=== PATIENT | female | born 1985 | race Caucasian/White ===

== ENCOUNTER 2022-05-12 12:42 | Outpatient (CLI) | payer BC, SELFPAY ==
--- NOTE | 2022-05-12 13:00 | CRLHL7_ITS ---
For Patients: As a result of the Century Cures Act, medical imaging exams and procedure reports are released immediately into your electronic medical record. You may view this report before your referring provider. If you have questions, please contact your health care provider. INDICATION: Dating and viability TECHNIQUE: Ultrasound OB pelvis transabdominal and transvaginal. Real-time plata-scale imaging of the pelvis was performed. COMPARISON: None FINDINGS: Sonographic imaging demonstrates a gestational sac measuring 1.9 centimeters with a yolk sac and no apparent pole at this time. No heart tones are identified. No significant subchorionic hemorrhage. The right ovary is normal in size, contour and echogenicity. The left ovary is not visualized. IMPRESSION: Demonstration of a gestational sac measuring 1.9 centimeters corresponding to a 6 week gestation with a yolk sac. No obvious heart tones at this time. Overall, differential includes demise versus early gestation secondary to small, early appearing gestational sac/yolk sac and underdeveloped pole. Recommend additional follow-up with repeat ultrasound in 2 weeks to document viability and/or sequential quantitative beta HCG evaluation. Dictated by Laith Macdonald MD @ 05/12/2022 2:22:30 PM (Electronically Signed)
== END 2022-05-12 12:43 | disposition home or self-care (01) ==
LOC: US 12:44
PROVIDERS: PCP Physician Assistant Medical; Visit Provider Registered Nurse
DX: Z34.91 Encounter for supervision of normal pregnancy, unspecified, first trimester (principal); O02.1 Missed abortion
CPT/HCPCS: 76817; 84443; 86850; 86900; 86901

== ENCOUNTER 2022-05-22 08:05 | Outpatient (CLI) | payer BC, SELFPAY ==
--- NOTE | 2022-05-22 08:15 | CRLHL7_ITS ---
For Patients: As a result of the Century Cures Act, medical imaging exams and procedure reports are released immediately into your electronic medical record. You may view this report before your referring provider. If you have questions, please contact your health care provider. INDICATION: First trimester scan, establish dates. COMPARISON: 05/12/2022 TECHNIQUE: Real-time plata-scale imaging of the pelvis was performed. FINDINGS: The intrauterine gestational sac is similar with a mean sac diameter 1.8 cm. No pole or yolk sac. IMPRESSION: Nonviable gestation. Dictated by Thiago Matrin MD @ 05/22/2022 9:33:41 AM (Electronically Signed)
== END 2022-05-22 08:06 | disposition home or self-care (01) ==
LOC: US 08:06
PROVIDERS: PCP Physician Assistant Medical; Visit Provider Registered Nurse
DX: Z34.91 Encounter for supervision of normal pregnancy, unspecified, first trimester (principal)
CPT/HCPCS: 76817

== ENCOUNTER 2022-05-23 08:51 | Day surgery (SDC) | payer BC, SELFPAY ==
[2022-05-23 09:13] VITALS: BP 111/59; PULSE 77; RESP 16; TEMP 37; O2SAT 98
[2022-05-23 09:14] VITALS: BMI 32.1
[2022-05-23] MEDS: SODIUM CHLORIDE 0.9 % (FLUSH) 10 ML SYRINGE IVF (09:30)
[2022-05-23] MEDS: LACTATED RINGERS 1000 ML 1,000 ML 100 ML IV (09:30)
[2022-05-23] MEDS: DOXYCYCLINE HYCLATE 200 MG in 0.9 % SODIUM CHLORIDE Mini-bag 100 ML 100 MG IVPB (09:30)
--- NOTE | 2022-05-23 09:39 | W.ANESCHARGE ---
Anesthesia Charges Start Date/Time Anesthesia Start Date: 05/23/22 Anesthesia Start Time: 09:57 Stop Date/Time Anesthesia Stop Date: 05/23/22 Anesthesia Stop Time: 10:40
--- NOTE | 2022-05-23 09:44 | PM.PROC ---
Procedure Note Time Seen by Provider: 09:44 Date Seen: 05/23/22 Date of procedure: 05/23/22 Will [facility] bill your pro fee for this procedure?: Yes Procedure: Preoperative diagnosis: Keiry is a 36-year-old to para 0020 with a missed at 6 and 0/7 weeks gestation by ultrasound. Second miscarriage in 1 year. Postoperative diagnosis: Same Procedure: Suction curettage Anesthesia: Conscious sedation, paracervical block Surgeon: Zoey Solis MD Legal Transcriptionist: Not applicable IV fluid: 700 mL Estimated blood loss: 100 mL Specimen: Products of conception sent to cytogenetics then to pathology. Findings: On exam under anesthesia: the uterus was approximately 8 weeks size, mid position. Cervical os was closed without active bleeding. Adnexa were without mass or fullness palpable. The uterus sounded to 9 cm. On suction curettage there was a moderate amount of products of conception. No abnormality within the endometrium was palpable. Procedure: Keiry was taken to the operating room where conscious sedation was found to be adequate. She was placed in the dorsal lithotomy position and an exam under anesthesia was performed with with findings stated above. She was then prepped and draped in normal sterile manner. A bivalve speculum was placed in the vagina to visualize the cervix. A paracervical block was placed using 0.5% Marcaine: 5 mL injected at the 4 and 8 o'clock positions on the cervix. The anterior lip of the cervix was grasped with a long Allis clamp. As I was dilating the cervix the long Allis clamp hold off so a single-tooth tenaculum was placed. The tenaculum then pulled through the anterior lip of the cervix during the dilating process. The cervix was dilated to Hegar # 7. A # 7 curved curette was then advanced into the uterus without difficulty. A suction curettage was then performed using 40-50 mmHg pressure. Four passes with the curette were performed to remove all visualized tissue. The curette was removed and mild, sharp curettage was performed to verify that all of the products of conception had been removed. One last pass with the curved curette was then made to verify that all of the tissue had been removed. The single-tooth tenaculum was removed from the anterior lip of the cervix. Two sutures of 3 0 Vicryl were used to repair the laceration of the cervix where the tenaculum had pulled through. Most of her blood loss was due to the laceration bleeding. Three figure of 8 sutures were placed to obtain hemostasis. The speculum was then removed from the vagina. The patient tolerated this procedure well. Sponge, lap and instrument counts were correct x2 the end of the procedure. The patient was awakened from sedation and taken to the recovery area in stable condition. The patient received an ampule RhoGAM and 200 mg doxycycline p.o. prior to the procedure. Surgeon: Zoey Solis MD
[2022-05-23] MEDS: BUPIVACAINE 0.5% 30 ML INJECTION (10:14)
[2022-05-23 10:38] VITALS: BP 100/60; PULSE 73; RESP 16; TEMP 36; O2SAT 96
--- NOTE | 2022-05-23 10:42 | W.ANESCHARGE ---
Anesthesia Charges Start Date/Time Anesthesia Start Date: 05/23/22 Anesthesia Start Time: 09:57 Stop Date/Time Anesthesia Stop Date: 05/23/22 Anesthesia Stop Time: 10:40
[2022-05-23 10:53] VITALS: BP 106/63; PULSE 65; RESP 16; O2SAT 98
[2022-05-23 11:11] VITALS: BP 101/64; PULSE 74; RESP 16; TEMP 36.8; O2SAT 99
[2022-05-23 11:25] VITALS: BP 101/57; PULSE 71; RESP 16; O2SAT 96
== END 2022-05-23 11:48 | disposition home or self-care (01) ==
PROVIDERS: PCP Physician Assistant Medical; Visit Provider Obstetrics & Gynecology
PROC: (CPT 59820; principal; 2022-05-23 10:00)
DX: O02.1 Missed abortion (principal)
CPT/HCPCS: 59820; 00940; 01965; 36415; 81229; 85461; 86850; 86900; 86901; 88271; 88274; 88305; 88342; J1100; J1885; J2250; J2405; J2704; J2791; J3010; J3490; J7120

== ENCOUNTER 2022-06-07 10:32 | Outpatient (CLI) | payer BC, SELFPAY | END 2022-06-07 10:33 | disposition home or self-care (01) | LOC: LKVREF 10:32 | PROVIDERS: PCP Physician Assistant Medical; Visit Provider Obstetrics & Gynecology | DX: N96 Recurrent pregnancy loss (principal); Z01.818 Encounter for other preprocedural examination | CPT/HCPCS: 82232; 83520; 84443; 85610; 85613; 85730; 86147; 86431; 88262 ==

== ENCOUNTER 2022-09-13 09:56 | Outpatient (CLI) | payer BC, SELFPAY | END 2022-09-13 09:57 | disposition home or self-care (01) | PROVIDERS: PCP Physician Assistant Medical; Referring Provider Physician Assistant Medical; Visit Provider Obstetrics & Gynecology | DX: N96 Recurrent pregnancy loss (principal) | CPT/HCPCS: 84144 ==

== ENCOUNTER 2022-12-29 15:14 | Outpatient (CLI) | payer BC, SELFPAY | END 2022-12-29 15:15 | disposition home or self-care (01) | LOC: LKVREF 15:15 | PROVIDERS: PCP Physician Assistant Medical; Visit Provider Obstetrics & Gynecology | DX: N97.9 Female infertility, unspecified (principal); N96 Recurrent pregnancy loss | CPT/HCPCS: 84703 ==

== ENCOUNTER 2023-01-16 10:00 | Outpatient (CLI) | payer BC, SELFPAY | END 2023-01-16 10:01 | disposition home or self-care (01) | LOC: NFLDREF 01-23 07:28 | PROVIDERS: PCP Physician Assistant Medical; Referring Provider Physician Assistant Medical; Visit Provider Obstetrics & Gynecology | DX: N97.0 Female infertility associated with anovulation (principal) | CPT/HCPCS: 84144 ==

== ENCOUNTER 2023-02-15 09:45 | Outpatient (CLI) | payer BC, SELFPAY | END 2023-02-15 09:46 | disposition home or self-care (01) | LOC: NFLDREF 02-20 01:42 | PROVIDERS: PCP Physician Assistant Medical; Referring Provider Physician Assistant Medical; Visit Provider Obstetrics & Gynecology | DX: N97.0 Female infertility associated with anovulation (principal) | CPT/HCPCS: 84144 ==

== ENCOUNTER 2023-03-22 09:10 | Outpatient (CLI) | payer BC, SELFPAY ==
--- OUTSIDE RECORDS SUMMARY | 2023-03-26 12:39 | XMS_ITS | Clinical Summary ---
Author Name Unknown Organization [facility] Address [address] [place] [address] Care Team Providers Care Extrusion Line Operator Name Role Phone Elsewhere, Pcp Primary Care Provider Unavailabl e Source Comments Patient records contain information from all sites at [facility]. For routine questions regarding patient records, call [phone] during business hours, M-F 8:00 AM - 5:00 PM Central Time. Record requests for emergency care only can be directed to [phone] at any time.[facility] Allergies Active Allergy Reactions Criticality Noted Date Comments Penicillins Hives (Reselect Reaction),Rash High 09/03 Medications Medication Sig Dispensed Refills Start Date End Date Status CHOLECALCIFEROL, VITAMIN D3, ORAL Take 1 capsule by mouth daily. 0 11/06/2013 Active loratadine (for_CLARITIN) 10 mg tablet Take 10 mg by mouth daily. 0 Active vit calc,iron,folic ( VITAMIN ORAL) Take by mouth. 0 Active rizatriptan STATION CHIEF (MAXALT-STATION CHIEF) 10 mg disintegrating tablet Take 1 tablet (10 mg total) by mouth as needed for migraine (headache). May repeat dose once in 2 hours if migraine unresolved. Do not exceed 30 mg in 24 hours. 18 tablet 11 10/22/2020 Active sertraline (Zoloft) 100 mg tabletIndications:Depr ession Major Recurrent Moderate (HCC) Take 1 tablet (100 mg total) by mouth daily. 90 tablet 3 10/12/2021 Active famotidine (PEPCID) 20 mg tablet Take 20 mg by mouth daily. 0 01/03/2022 Active adalimumab (Humira) 40 mg/0.8 mL syringe kitIndications:Spondyl itis Ankylosing (HCC) INJECT 1 SYRINGE UNDER THE SKIN EVERY 14 DAYS 4.8 mL 1 09/28/2022 Active progesterone (PROMETRIUM) 200 mg capsule Take 400 mg by mouth daily. Take at bedtime, vaginally 0 12/25/2022 Active letrozole (FEMARA) 2.5 mg tablet Take 5 mg by mouth. 5 days out of cycle 0 02/24/2023 Active dextroamphetamine-amph etamine (ADDERALL) 10 mg tablet Take 1 tablet by mouth daily. 0 02/28/2023 Active sertraline (ZOLOFT) 100 mg tablet Take 100 mg by mouth daily. 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 hx of cyclical vomiting as a child. Diarrhea Persistent Unexplained 05/12/2014 Migraine Headache With Aura 01/02/2014 Dizziness 12/10/2013 Acne 11/13/2013 Spondylitis Ankylosing 09/30/2013 Encounters Date Type Department Care Team Description 03/26/2023 9:15 AM [employer] [employer] [facility] Clinical Communication Virtual Review in [address] [address] Pre-visit Intake (DIGNA done 03/26 EEF) from Last 3 Months Immunizations Name Administration Dates Next Due 4vHPV (discontinued) 01/25/2007,09/25/2006,07/25 DTP 09/23/1992, 9,02/15/1988,1987,1987 HepA Adult 09/30/2007,02/28/2007 HepB (discontinued) adolesce nt/high risk 12/11/1995,07/17/1995,06/12/1995 HepB Pediatric/Adolescent 12/11/1995,07/17/1995, 06/12/1995 Hib (HbOC) (discontinued) 05/15/1989 Influenza (IM) Preservative Free 01/21/2013 Influenza, Injectable, Quadrivalent 01/06/2015 Influenza, Seasonal, Injectable 01/21/2013 Influenza, Unspecified 01/03/2017,2015,01/06/2015,2013 MCV4 (Menactra) 09/06/2005 MMR 09/23/1992,10/26/1988 OPV 09/23/1992, 9,1987,1987 PPSV23 01/24/2013 SARS-COV-2 (COVID-19) - KLAUDIA (J&J) 06/09/2020 SARS-COV-2 (COVID-19) - PFIZ ER (12 years or older) 12/01/2020 Td (Adult), adsorbed 11/12/2001 Tdap 11/24/2010 influenza vaccine quad (FLUZONE/FLUARIX) (6 months and older)(PF) 01/05/2021,01/06/2020,02/07/2019,2017,01/03/2017,11/22/2015 Family History Medical History Relation Name Comments Heart attack Father Jonas Lymphoma Father Jonas Breast cancer Grandmother Paternal Depression Mother Natalee WILBUR disease Mother Natalee Breast cancer Paternal Grandmother Kristine Headache Sister 1 Mayra Skin cancer Sister 1 Mayra ADD Sister 2 Catherine ADD / ADHD Sister 2 Catherine Anxiety disorder Sister 2 Catherine Migraines Sister 2 Catherine Relation Name Status Comments Father Jonas Grandmother Paternal Mother Natalee Paternal Grandmother Kristine Sister 1 Mayra Sister 2 Catherine Social History Tobacco Use Types Packs/Day Years Used Date Smoking Tobacco: Former Cigarettes 0 3 0 03/05/2007 - 03/05/2010 Passive Smoke Exposure: Past Smokeless Tobacco: Never Tobacco Cessation:Counseling Given: Not Answered Alcohol Use Standard Drinks/Week Comments Yes 4 (1 standard drink = 0.6 oz pur e alcohol) Humiliation, Afraid, Rape, and Kick questionnair e Answer Date Recorded Within the last year, have y ou been afraid of your partner or ex-partner? No 06/19/2022 Within the last year, have y ou been humiliated or emotionally abused in other ways by your partner or ex-partner? No Within the last year, have y ou been kicked, hit, slapped, or otherwise physically hurt by your partner or ex-partner? No 06/19/2022 Within the last year, have y ou been raped or forced to have any kind of sexual activity by your partner or ex-partner? No 06/19/2022 Social Connection and Isolat ion Panel [NHANES] Answer Date Recorded In a typical week, how many times do you talk on the phone with family, friends, or neighbors? More than three times a week 06/19/2022 How often do you get togethe r with friends or relatives? Once a week 06/19/2022 How often do you attend chur or taoism services? Never 06/19/2022 Do you belong to any clubs o r organizations such as zoroastrian groups, unions, fraternal or athletic groups, or school groups? No 06/19/2022 How often do you attend meet ings of the clubs or organizations you belong to? Never 06/19/2022 Are you , , di vorced, , never , or living with a partner? 06/19/2022 AUDIT-C Answer Date Recorded Q1: How often do you have a drink containing alc ohol? 2-3 times a week 06/19/2022 Q2: How many drinks containi ng alcohol do you have on a typical day when you are drinking? 1 or 2 06/19/2022 Q3: How often do you have si x or more drinks on one occasion? Never 06/19/2022 Overall Financial Resource Strain (CARDIA) Answe r Date Recorded How hard is it for you to pa y for the very basics like food, housing, medical care, and heating? Not hard at all 06/19/2022 PHQ-2 Answer Date Recorded PHQ-2 Score 0 08/15/2022 [facility] Occup[facility] ional [facility] - Occupational Stress Questionnaire Answer Date Recorded Do you feel stress - tense, restless, nervous, or anxious, or unable to sleep at night because your mind is troubled all the time - these days? Only a little 06/19/2022 Exercise Vital Sign Answer Date Recorde d On average, how many days pe r week do you engage in moderate to strenuous exercise (like a brisk walk)? 1 day 06/19/2022 On average, how many minutes do you engage in exercise at this level? 40 min 06/19/2022 Hunger Vital Sign Answer Date Recorded Within the past 12 months, y ou worried that your food would run out before you got the money to buy more. Never true 06/20/19 Within the past 12 months, t he food you bought just didn't last and you didn't have money to get more. Never true 06/19/2022 PRAPARE - Transportation Answer Date Re corded In the past 12 months, has l ack of transportation kept you from medical appointments or from getting medications? No 06/03 In the past 12 months, has l ack of transportation kept you from meetings, work, or from getting things needed for daily living? No 06/19/2022 Housing Stability Vital Sign Answer Kushal e Recorded In the last 12 months, was t here a time when you were not able to pay the mortgage or rent on time? No 06/19/2022 In the last 12 months, how many places have you lived? 1 06/19/2022 In the last 12 months, was t here a time when you did not have a steady place to sleep or slept in a [place] [facility] [place] (including now)? No 06/19/2022 Depression Answer Date Recor ded PHQ-9 Total Score (max 27) 4 08/15 Nutrition Answer Date Recorded Nutrition: EVOO Fat Source Yes 06/19 On average, how many serving s of fruits and vegetables do you eat per day (serving size is equal to 1 cup or approximately the size of a tennis ball)? 2-3 06/19/2022 Dental Answer Date Recorded Dental: Regular Dentist Yes 04/23/19 Employment Answer Date Recorded Employment status Unemployed/not in e paid workforce and NOT seeking employment 06/19/2022 Education Answer Date Recorded What is the highest level of school you have completed or the highest degree you have received? Bachelor's degree (e.g., BA, AB, BS) 10/23/2018 Sex and Gender Information Value Date Recorded Sex Assigned at Female 02/06/2017 1:39 PM [facility] [employer] [facility] Gender Identity Female 02/06/2017 1:39 PM [employer] [facility] Sexual Orientation Straight 02/06/2017 1: 39 PM [employer] [employer] [facility] Last Filed Vital Signs Vital Sign Reading Time Taken Comments Blood Pressure 119/79 04/11/2022 2:29 PM [employer] [facility] [facility] Pulse 102 04/11/2022 2:29 PM [employer] [facility] Temperature 37 ??C (98.6 ??F) 04/11/2022 2:29 PM [facility] [employer] [facility] Respiratory Rate 16 09/14/2017 11:30 AM CDT Oxygen Saturation 99% 04/28/2019 9:29 AM [employer] [facility] Inhaled Oxygen Concentration - - Weight 85.7 kg (189 lb 0.7 oz) 04/11/2022 2:29 P M [facility] [employer] [facility] Height 165.5 cm (5' 5.16) 04/11/2022 2:29 PM CS T Body Mass Index 31.31 04/11/2022 2:29 PM [facility] [facility] Plan of Treatment Upcoming Encounters Date Type Department Care Team (Late st Contact Info) Description 03/27/2023 11:30 AM [facility] [employer] Appointment Department of Laboratory Medicine and Pathology, [facility], in [place], [place] [address] [place] [address] Ayala Roth APRN, C.N.P. [address] [place] [phone] 03/27/2023 2:45 PM [facility] [employer] [facility] Office Visit Division of Rheumatology in [place], [place] [address] [place] [phone] Ayala Roth APRN, C.N.P. [address] [place] [phone] Health Maintenance Due Date Last Done Comments Hepatitis C Screening 1987 Zoster Vaccines (1 of 2) 06/14/2006 Pneumococcal vaccine (0-64 y ears) (2 of 2 - PCV) 01/24/2014 01/24/2013 Lipid (Cholesterol) Screening 10/03/2018 10/03/2013 Depression Monitoring (PHQ-9) 12/15/2022 08/15/2022 Cervical Cancer Screening 11/27/20242019, 11/28/2019, 02/06/2017, Additional history exists DTaP,Tdap,and Td Vaccines (8 - Td or Tdap) 07/28/2031 07/27/2021, 11/24/2010, 11/12/2001, Additional history exists Hepatitis B Vaccines Completed 12/11/1995, 12/11/1995, 07/17/1995, Additional history exists HPV Vaccines Completed 01/25/2007, 01/04, 09/25/2006, Additional history exists Hepatitis A Vaccines Completed 09/30/2007, 02/29/20 07 HIV Screening Completed 10/03/2013 COVID-19 Vaccine Completed 12/04/2022, 12/2021, 09/27/2021, Additional history exists Influenza Vaccine Completed 12/04/2022, , 01/05/2021, Additional history exists Medical Devices Implanted Type Area Coil Tester Device Identifier Shelf Expiration Date Model / Serial / Lot Hardware E.G. Pins/Screws/Wale s Hardware e.g. pins/screws/wale s Left: Wrist Intrauterine Device Intrauterine Device Cervix Advance Directives For more information, please contact: [phone] Latest Code Status on File Code Status Date Activated Date Inactivated Comments Full Code 02/01/2017 12:00 PM 02/01/2017 2:51 PM Question Answer Comments Full Code: Discussed Code Status History Code Status Date Activated Date Inactivated Comments Full Code 02/01/2017 10:01 AM 02/01/2017 12:00 PM Question Answer Comments Full Code: Discussed Care Teams Extrusion Line Operator Relationship Specialty Start Date End Date Elsewhere, Pcp PCP - General Internal Medicine 03/23/23
--- OUTSIDE RECORDS SUMMARY | 2023-03-26 12:39 | XMS_ITS | Clinical Summary ---
Author Name Unknown Organization [facility] Address [address] [place] [address] Care Team Providers Care Tanning Consultant Name Role Phone Dana Alvarez Primary Care Provider [phone] Allergies Active Allergy Reactions Criticality Noted Date Comments Penicillins Hives,Rash Low 05/28/2020 Social History Tobacco Use Types Packs/Day Years Used Date Smoking Tobacco: Never Assessed Adolescent Education Answer Date Record ed Getting School Help Needed Not on file 11/25 Sex and Gender Information Value Date Recorded Sex Assigned at Not on file Gender Identity Not on file Sexual Orientation Not on file Last Filed Vital Signs Vital Sign Reading Time Taken Comments Blood Pressure 110/65 05/28/2020 12:30 PM CDT Pulse 82 05/28/2020 12:30 PM CDT Temperature 36.4 ??C (97.5 ??F) 05/28/2020 10:00 AM C DT Respiratory Rate 18 05/28/2020 10:00 AM CDT Oxygen Saturation 98% 05/28/2020 12:30 PM CDT Inhaled Oxygen Concentration - - Weight - - Height - - Body Mass Index - - Plan of Treatment Health Maintenance Due Date Last Done Comments ADVANCE CARE PLANNING 1987 ANNUAL REVIEW OF HM ORDERS 1987 YEARLY PREVENTIVE VISIT 1987 COVID-19 Vaccine (#1) 1987 DTAP/TDAP/TD IMMUNIZATION (6 - Tdap) 11/13/2001 11/12/2001, 09/23/1992, 02/13/1989, Additional history exists HIV SCREENING 06/14/2002 HEPATITIS C SCREENING 06/14/2005 PAP 06/14/2008 PHQ-2 (once per calendar year) 2022 INFLUENZA VACCINE (#1) 2022 0, 02/07/2019, 12/04/2017, Additional history exists HEPATITIS B IMMUNIZATION Completed 996, 07/17/1995, 06/12/1995 MENINGITIS IMMUNIZATION Completed 09/06/2005 HPV IMMUNIZATION Completed 01/25/2007, , 07/25/2006 Pneumococcal Vaccine: Pediatrics (0 to 5 Years) and At-Risk Patients (6 to 64 Years) Aged Out 01/24/2013 No longer eligible based on patient's age to complete this topic IPV IMMUNIZATION Aged Out No longer e ligible based on patient's age to complete this topic RSV MONOCLONAL ANTIBODY Aged Out No l onger eligible based on patient's age to complete this topic Care Teams Tanning Consultant Relationship Specialty Start Date End Date Dana Alvarez DO PCP - General Family Medicine 05/28/20
--- OUTSIDE RECORDS SUMMARY | 2023-03-26 12:39 | XMS_ITS | Referral Summary ---
Author Name Unknown Organization [facility] Address [address] [place] [address] Care Team Providers Care Immigration Officer Name Role Phone Dana Alvarez DO Primary Care Provider [phone] Allergies Active Allergy Reactions Criticality Noted Date [...] Mass Index - - Plan of Treatment Not on file Care Teams Immigration Officer Relationship Specialty Start Date End Date Dana Alvarez DO PCP - General Family Medicine 05/28/20
--- OUTSIDE RECORDS SUMMARY | 2023-03-26 12:40 | XMS_ITS | Encounter Summary ---
Author Name Unknown Organization [facility] Address [address] [place] [address] Care Team Providers Care Merchandising Internship Name Role Phone Blaine Casanova M.D. Primary Care Provider [phone] Reason for Referral * Outpatient (Routine) - Authorized Specialty Diagnoses / Procedures Referred By Contac t Referred To Contact Rheumatology Ayala Roth APRN, C.N.P. [address] [place] [phone] [facility] Referral ID Status Reason Start Date Expiration Date V isits Requested Visits Authorized [id number] Authorized 04/11/2022 04/10/2025 1 1 GER OF LEARNING Reason for Visit * Outpatient (Routine) - Closed Specialty Diagnoses / Procedures Referred By Contac t Referred To Contact Rheumatology Ayala Roth APRN, C.N.P. [address] [place] [phone] [facility] Referral ID Status Reason Start Date Expiration Date Visits Re quested Visits Authorized [id number] Closed 05/16/2021 05/16/2022 1 1 Encounter Details Date Type Department Care Team (Latest Contact Info) Description 04/11/2022 2:45 PM MANAGER OF LEARNING Office Visit Division of Rheumatology in [place], [place] [address] [place] [address] Ayala Roth APRN, C.N.P. [address] [place] [address] Spondylitis Ankylosing (HCC) (Primary Dx) Social History Tobacco Use Types Packs/Day Years Used Date Smoking Tobacco: Former Cigarettes 0 3 0 03/05/2007 - 03/05/2010 Smokeless Tobacco: Never Alcohol Use Standard Drinks/Week Comments Yes 4 (1 standard drink = 0.6 oz pur e alcohol) Humiliation, Afraid, Rape, and Kick questionnair e Answer Date Recorded Within the last year, have y ou been afraid of your partner or ex-partner? No 12/15/2021 Within the last year, have y ou been humiliated or emotionally abused in other ways by your partner or ex-partner? No Within the last year, have y ou been kicked, hit, slapped, or otherwise physically hurt by your partner or ex-partner? No 12/15/2021 Within the last year, have y ou been raped or forced to have any kind of sexual activity by your partner or ex-partner? No 12/15/2021 Social Connection and Isolat ion Panel [NHANES] Answer Date Recorded In a typical week, how many times do you talk on the phone with family, friends, or neighbors? More than three times a week 12/15/2021 How often do you get togethe r with friends or relatives? Once a week 12/15/2021 How often do you attend chur ch or buddhist services? Never 12/15/2021 Do you belong to any clubs o r organizations such as nondenominational groups, unions, fraternal or athletic groups, or school groups? No 12/15/2021 How often do you attend meet ings of the clubs or organizations you belong to? Never 12/15/2021 Are you , , di vorced, , never , or living with a partner? 12/15/2021 AUDIT-C Answer Date Recorded Q1: How often do you have a drink containing alc ohol? 2-3 times a week 12/15/2021 Q2: How many drinks containi ng alcohol do you have on a typical day when you are drinking? 1 or 2 12/15/2021 Q3: How often do you have si x or more drinks on one occasion? Never 12/15/2021 Overall Financial Resource Strain (CARDIA) Answe r Date Recorded How hard is it for you to pa y for the very basics like food, housing, medical care, and heating? Not hard at all 12/15/2021 PHQ-2 Answer Date Recorded PHQ-2 Score 0 12/08/2021 [facility] - Occupational Stress Questionnaire Answer Date Recorded Do you feel stress - tense, restless, nervous, or anxious, or unable to sleep at night because your mind is troubled all the time - these days? Only a little 12/15/2021 Exercise Vital Sign Answer Date Recorde d On average, how many days pe r week do you engage in moderate to strenuous exercise (like a brisk walk)? 2 days 12/15/2021 On average, how many minutes do you engage in exercise at this level? 20 min 12/15/2021 Hunger Vital Sign Answer Date Recorded Within the past 12 months, y ou worried that your food would run out before you got the money to buy more. Never true 12/16/19 22 Within the past 12 months, t he food you bought just didn't last and you didn't have money to get more. Never true 12/15/2021 PRAPARE - Transportation Answer Date Re corded In the past 12 months, has l ack of transportation kept you from medical appointments or from getting medications? No 12/03 In the past 12 months, has l ack of transportation kept you from meetings, work, or from getting things needed for daily living? No 12/15/2021 Housing Stability Vital Sign Answer Kushal e Recorded In the last 12 months, was t here a time when you were not able to pay the mortgage or rent on time? No 12/15/2021 In the last 12 months, how many places have you lived? 1 12/15/2021 In the last 12 months, was t here a time when you did not have a steady place to sleep or slept in a fci (including now)? No 12/15/2021 Depression Answer Date Recor ded PHQ-9 Total Score (max 27) 6 12/08 Nutrition Answer Date Recorded Nutrition: EVOO Fat Source Yes 12/15 On average, how many serving s of fruits and vegetables do you eat per day (serving size is equal to 1 cup or approximately the size of a tennis ball)? 4-5 12/15/2021 Dental Answer Date Recorded Dental: Regular Dentist Yes 04/23/19 Employment Answer Date Recorded Employment status Unemployed/not in th e paid workforce but seeking employment 12/15/2021 Education Answer Date Recorded What is the highest level of school you have completed or the highest degree you have received? Bachelor's degree (e.g., BA, AB, BS) 10/23/2018 Sex and Gender Information Value Date Recorded Sex Assigned at Female 02/06/2017 1:39 PM MANAGER OF LEARNING Gender Identity Female 02/06/2017 1:39 PM MANAGER OF LEARNING Sexual Orientation Straight 02/06/2017 1: 39 PM MANAGER OF LEARNING documented as of this encounter Last Filed Vital Signs Vital Sign Reading Time Taken Comments Blood Pressure 119/79 04/11/2022 2:29 PM MANAGER OF LEARNING Pulse 102 04/11/2022 2:29 PM MANAGER OF LEARNING Temperature 37 ??C (98.6 ??F) 04/11/2022 2:29 PM MANAGER OF LEARNING Respiratory Rate - - Oxygen Saturation - - Inhaled Oxygen Concentration - - Weight 85.7 kg (189 lb 0.7 oz) 04/11/2022 2:29 P M MANAGER OF LEARNING Height 165.5 cm (5' 5.16) 04/11/2022 2:29 PM CS T Body Mass Index 31.31 04/11/2022 2:29 PM MANAGER OF LEARNING documented in this encounter Progress Notes * Ayala Roth APRN, C.N.P. - 04/11/2022 2:45 PM CST Images from the original note were not included. SUBJECTIVE CHIEF COMPLAINT / REASON FOR VISIT Keiry Ba is a 36 y.o. female who presents as an established patient for follow up of ankylosing spondylitis. HISTORY OF PRESENT ILLNESS Mrs. Ba is a very pleasant 36 year old female with ankylosing spondylitis. She is initially seen by Dr. Rivera in September 2014. She had been followed previously by Dr. Benjamin Slaughter. She is HLA B27 positive. Symptoms began in December 2011 with low back pain and morning stiffness. She subsequently developed inflammatory arthritis of the right knee. She was treated by a metal sprayer protective coating in [place]. RHEUMATIC DISEASE MEDICATION HISTORY Medication Start Date Stop Date Response / Adverse Events Methotrexate 08/2012 Did not benefit from it Prednisone Humira 02/2013 Currently Today, I am seeing for follow up for ankylosing spondylitis. She has noticed increased fatigue over the last 2 weeks. She had a cold last week and pushed her Humira from Sunday to Sunday.She has gained 16.6 kg since 2020. She is 4 weeks and will seeing OB on May 12, 2022. She continues to take Humira 40 mg subcu injections every other week. She denies any significant morning stiffness as this time. She denies any adverse side effects from medication. She denies any recent flares or hospitalizations. Rheumatoid Arthritis AM stiffness: 0 minutes Current Symptoms: fatigue (worse), chest pain (costochondritis- mild), nausea (at times), abdominalpain (cramping), chills (every once and while) and oral ulcers (2 weeks ago under her tongue) Current Symptoms: no diarrhea, eyes not dry, no dry mouth, no fever, no rash, no Raynaud's syndrome, no weight loss, no excessive bruising, no cough, no edema, no vomiting, no anorexia, no night sweats, no eye inflammation (Hx of uvetitis), no heartburn, no dyspnea and no subcutaneous nodules Previous Reports Reviewed:lab reports and office notes The following portions of the patient's history were reviewed and updated as appropriate: family history, medical history, social history, surgical history and problem list. REVIEW OF SYSTEMS Pertinent positives and negatives as documented in the above history of present illness. Constitutional: Positive for chills (every once and while) and fatigue (worse). - Negative for fever, loss of appetite, night sweats and weight loss. Skin: - Negative for skin rash. ENT: Positive for sinus congestion. Respiratory: Positive for dry cough. - Negative for coughing. Cardiovascular: Positive for chest pain, pressure or tightness (costochondritis- mild). - Negative for pain in the calf muscles when walking. Gastrointestinal: Positive for abdominal (belly) pain or cramping (cramping) and nausea (at times). - Negative for anorexia, blood in stool, constipation, diarrhea, heartburn and vomiting. Musculoskeletal: Positive for pain or stiffness in the joints (hands), back pain (low back), joint swelling and muscle pain/stiffness. Neurological: Positive for light-headedness, numbness or shooting pain in hands, arms, legs, or feet, loss of balance or tendency to fall easily and headaches. Psychiatric/Behavioral: Positive for excessive daytime sleepiness/tiredness, feeling down, depressed, or hopeless over past two weeks, not being able to stop or control worrying over past two weeks and feeling nervous, anxious, or on edge in past two weeks. The following systems were negative: Skin, Eyes, Genitourinary, Hematologic OBJECTIVE PHYSICAL EXAM Physical Exam General: Alert, oriented, appropriate affect, no apparent distress. Skin: No rheumatologic rashes or ulcers noted. Eyes: Clear conjunctivae and lids. Lymph: No cervical or supraclavicular adenopathy. Cardio: Regular rate. No murmurs or rubs. Lungs: Clear to auscultation bilaterally. Extremities: No limitations in ROM bilaterally. Joints: No synovitis of the upper and lower extremities including hands, wrists, elbows, knees, ankles or feet bilaterally. Range of motion of the extremities including shoulders and hips are within functional limits bilaterally. Lab: CBC with differential: RBC 3.79. Platelet 387. Lymphocytes 3.22. Monocytes 0.86. Creatinine, GFR, and AST all within normal limits. CRP and ESR are normal. 01/06/2020 07/16/2020 04/13/2021 04/11/2022 Tender joint count (0-28) 2 0 1 0 Swollen joint count (0-28) 0 0 0 0 Patient global assessment (0-100) 25 10 36 5 Creative Coordinator global assessment (0-100) 20 10 20 5 ESR (mm/h) 2 2 5 10 CRP (mg/L) 3 3 3 3 Disease Activity Score 28 using ESR ([id number]) 1.63 0.63 2.19 1.68 Disease Activity Score 28 using CRP ([id number]) 2.6 1.6 2.52 1.53 Clinical Disease Activity Index (CDAI) 6.5 2 6.6 1 Simplified Disease Activity Index (SDAI) 6.8 2.3 6.9 1.3 ASSESSMENT / PLAN #1 Spondylitis Ankylosing (HCC) #2 First trimester No synovitis not seen on exam today. Overall, her diease is stable. She will continue Humira 40 mg SQ injection every other week. Prescription is up to date. Patient was in agreement with this plan. . I will follow up with her 3 months during her 2nd trimester. I answered the patients questions to the best of my ability. The patient seemed pleased with our interaction. If she should have any additional questions or concerns. [facility] BASDAI GER OF LEARNING documented in this encounter Plan of Treatment Upcoming Encounters Date Type Department Care Team (Late st Contact Info) Description 03/27/2023 11:30 AM MANAGER OF LEARNING Appointment Department of Laboratory Medicine and Pathology, [facility] in [place], [place] [address] [place] [phone] Ayala Roth APRN, C.N.P. [address] [place] [phone] 03/27/2023 2:45 PM MANAGER OF LEARNING Office Visit Division of Rheumatology in [place], [place] [address] [place] [phone] Ayala Roth APRN, C.N.P. [address] [place] [phone] Scheduled Orders Name Type Priority Associated Diagnoses Orde r Schedule CBC with Differential, Blood Lab Routine Spondylitis Ankylosing (HCC) Expected: 07/09/2022 (Approximate), Expires: 04/11/2023 Sedimentation Rate Lab Routine Spondylitis Ankylosing (HCC) Expected: 07/09/2022 (Approximate), Expires: 04/11/2023 CRP (C-Reactive Protein) Lab Routine Spondylitis Ankylosing (HCC) Expected: 07/09/2022 (Approximate), Expires: 04/11/2023 Creatinine with Estimated GFR Lab Routine Spondylitis Ankylosing (HCC) Expected: 07/09/2022 (Approximate), Expires: 04/11/2023 AST (Aspartate Aminotransferase) Lab Routine Spondylitis Ankylosing (HCC) Expected: 07/09/2022 (Approximate), Expires: 04/11/2023 Scheduled Referrals Name Type Priority Associated Diagnoses Order Schedule Rheumatology office visit (clinic) Outpatient Referral Routine Expected: 07/09/2022 (Approximate), Expires: 07/10/2023 documented as of this encounter Visit Diagnoses Diagnosis Spondylitis Ankylosing (HCC)- Primary documented in this encounter Additional Health Concerns Assessment Noted Time PHQ-9 Depression Total Score: 6 12/09/19 22 2:03 PM CDT documented as of this encounter Care Teams Merchandising Internship Relationship Specialty Start Date End Date Blaine Casanova M.D. [address] [place] [phone] PCP - General 12/09/21 03/22/23 documented as of this encounter
--- OUTSIDE RECORDS SUMMARY | 2023-03-26 12:40 | XMS_ITS | Encounter Summary ---
Author Name Unknown Organization [facility] Address [address] [place] [address] Care Team Providers Care Estate Tax Examiner Name Role Phone Blaine Casanova M.D. Primary Care Provider [phone] Reason for Visit * Reason Onset Date Comments Pre-visit Intake 04/07/2022 Encounter Details Date Type Department Care Team (Latest Contact Info) Description 04/07/2022 9:45 AM NEGATIVE TURNER Clinical Communication Virtual Review in [place], [place] [address] [place], [place] [phone] Pre-visit Intake Social History Tobacco Use Types Packs/Day Years [...] 12/15/2021 How often do you attend chur or yazidi services? Never 12/15/2021 Do you belong to any clubs o r organizations such as moravian groups, unions, fraternal or athletic groups, or [...] Answer Date Recorded PHQ-2 Score 0 12/08/2021 [facility] - Occupational Stress [...] place to sleep or slept in a nursing home (including now)? No 12/15/2021 Depression Answer Date [...] Sex Assigned at Female 02/06/2017 1:39 PM NEGATIVE TURNER Gender Identity Female 02/06/2017 1:39 PM NEGATIVE TURNER Sexual Orientation Straight 02/06/2017 1: 39 PM NEGATIVE TURNER documented as of this encounter Plan of Treatment Upcoming Encounters Date Type Department Care Team (Late st Contact Info) Description 03/27/2023 11:30 AM NEGATIVE TURNER Appointment Department of Laboratory Medicine and Pathology, [facility], in [place], [place] [address] [place] [phone] Ayala Roth APRN, C.N.P. [address] [place] [phone] 03/27/2023 2:45 PM NEGATIVE TURNER Office Visit Division of Rheumatology in [place], [place] [address] [place] [address] Ayala Roth APRN, C.N.P. [address] [place] [phone] documented as of this encounter Visit Diagnoses Not on filedocumented in this encounter Additional Health Concerns Assessment Noted Time PHQ-9 Depression Total Score: 6 12/09/19 22 2:03 PM CDT documented as of this encounter Care Teams Estate Tax Examiner Relationship Specialty Start Date End Date Blaine Casanova M.D. [address] [place] [phone] PCP - General 12/09/21 03/22/23 documented as of this encounter
--- OUTSIDE RECORDS SUMMARY | 2023-03-26 12:40 | XMS_ITS ---
Author Name Unknown Organization [facility] Address [address] [place] [address] Care Team Providers Care Manager Legal Name Role Phone Unavailable Unavailable Unavailable Surgery Details Not on file Complications Check Surgery Details section. Procedure Estimated Blood Loss Check Surgery Details section. Procedure Findings Check Surgery Details section. Procedure Specimens Taken Check Surgery Details section.
--- OUTSIDE RECORDS SUMMARY | 2023-03-26 12:40 | XMS_ITS | Encounter Summary ---
Author Name Unknown Organization [facility] Address [address] [place] [address] Care Team Providers Care Stump Shooter Name Role Phone Blaine Casanova M.D. Primary Care Provider [phone] Encounter Details Date Type Department Care Team (Latest Contact Info) Description 04/11/2022 12:08 PM CASTING OPERATOR - 04/11/2022 11:59 PM [facility] Encounter Department of Laboratory Medicine and Pathology, [facility] in [place], [place] [address] [place] [address] Ayala Roth, ROLLER HAND, C.N.P. [address] [place] [phone] Spondylitis Ankylosing (HCC) Discharge Disposition: Home or Self Care Social History Tobacco Use Types Packs/Day Years [...] week 12/15/2021 How often do you attend [facility] or holiness services? Never 12/15/2021 Do you belong to any clubs o r organizations such as mosque groups, unions, fraternal or athletic groups, or [...] Answer Date Recorded PHQ-2 Score 0 12/08/2021 [facility] Occupat ional [facility] - Occupational Stress [...] place to sleep or slept in a care home (including now)? No 12/15/2021 Depression Answer [...] Sex Assigned at Female 02/06/2017 1:39 PM CASTING OPERATOR Gender Identity Female 02/06/2017 1:39 PM CASTING OPERATOR Sexual Orientation Straight 02/06/2017 1: 39 PM CASTING OPERATOR documented as of this encounter Medications at Time of Discharge Medication Sig Dispensed Refills Start Date End Date CHOLECALCIFEROL, VITAMIN D3, ORAL Take 1 capsule by mouth daily. 0 11/06/2013 famotidine (PEPCID) 20 mg tablet Take 20 mg by mouth daily. 0 01/03/2022 loratadine (for_CLARITIN) 10 mg tablet Take 10 mg by mouth daily. 0 vit calc,iron,folic ( VITAMIN ORAL) Take by mouth. 0 sertraline (Zoloft) 100 mg tabletIndications:Depre ssion Major Recurrent Moderate (HCC) Take 1 tablet (100 mg total) by mouth daily. 90 tablet 3 10/12/2021 adalimumab (Humira) 40 mg/0.8 mL syringe kitIndications:Spondyli tis Ankylosing (HCC) Inject 0.8 mL (40 mg total) under the skin every 14 (fourteen) days. 1.6 mL 7 08/18/2021 04/18/2022 documented as of this encounter Plan of Treatment Upcoming Encounters Date Type Department Care Team (Late st Contact Info) Description 03/27/2023 11:30 AM CASTING OPERATOR Appointment Department of Laboratory Medicine and Pathology, [facility] in [place], [place] [address] [place] [phone] Ayala Roth APRN, C.N.P. [address] [place] [phone] 03/27/2023 2:45 PM CASTING OPERATOR Office Visit Division of Rheumatology in [place], [place] [address] [place] [phone] Ayala Roth APRN, C.N.P. [address] [place] [phone] documented as of this encounter Procedures Procedure Name Priority Date/Time Associated Diagnosis Comments SEDIMENTATION RATE, B Routine 04/11/2022 12:23 PM CASTING OPERATOR Spondylitis Ankylosing (HCC) CBC WITH DIFFERENTIAL, B Routine 02/07/2 023 12:23 PM CASTING OPERATOR Spondylitis Ankylosing (HCC) C-REACTIVE PROTEIN (CRP), S/P Routine 04/11/2022 12:23 PM CASTING OPERATOR Spondylitis Ankylosing (HCC) ASPARTATE AMINOTRANSFERASE (AST), S/P Routine 04/11/2022 12:23 PM CASTING OPERATOR Spondylitis Ankylosing (HCC) CREATININE WITH EGFR, S/P Routine 04/11/2022 12:23 PM CASTING OPERATOR Spondylitis Ankylosing (HCC) documented in this encounter Results * (ABNORMAL) Creatinine with Estimated GFR (04/11/2022 12:23 PM CASTING OPERATOR) Creatinine 0.56(L) 0.59 - 1.04 mg/dL 04/11/2022 1:27 PM CASTING OPERATOR DTL Estimated GFR (eGFR) >90 >=60 mL/min/BSA 04/11/2022 1:27 PM CASTING OPERATOR DTL Comment: Estimated GFR calculated using the 2020 CKD_EPI creatinine equation. Blood (Blood, Venous) 04/11/2022 12:23 PM CASTING OPERATOR 04/11/2022 1:07 PM CASTING OPERATOR Ayala Roth APRN, C.N.P. LAB BLOOD ADD-ON [facility] [address] [place] [address], [facility] DTL [facility] [address] [place] [address] * AST (Aspartate Aminotransferase) (04/11/2022 12:23 PM CASTING OPERATOR) Aspartate Aminotransferase (AST), S 20 8 - 43 U/L 04/11/2022 1:27 PM CASTING OPERATOR DTL Blood (Blood, Venous) 04/11/2022 12:23 PM CASTING OPERATOR 04/11/2022 1:07 PM CASTING OPERATOR Ayala Roth APRN, C.N.P. LAB BLOOD ADD-ON [facility] [address] [place] [address], [facility] DTL [facility] [address] [place] [address] * (ABNORMAL) CBC with Differential, Blood (04/11/2022 12:23 PM CASTING OPERATOR) Hemoglobin 11.8 11.6 - 15.0 g/dL 04/11/2022 12:57 PM CASTING OPERATOR DTL Hematocrit 36.0 35.5 - 44.9 % 04/11/2022 12:57 PM CASTING OPERATOR DTL Erythrocytes 3.79(L) 3.92 - 5.13 x10(12)/L 04/11/2022 12:57 PM CASTING OPERATOR DTL MCV 95.0 78.2 - 97.9 fL 04/11/2022 12:57 PM CASTING OPERATOR DTL RBC Distrib Width 12.0(L) 12.2 - 16.1 % 04/11/2022 12:57 PM CASTING OPERATOR DTL Platelet Count 387(H) 157 - 371 x10(9)/L 04/11/2022 12:57 PM CASTING OPERATOR DTL Leukocytes 9.3 3.4 - 9.6 x10(9)/L 04/11/2022 12:57 PM CASTING OPERATOR DTL Neutrophils 5.00 1.56 - 6.45 x10(9)/L 04/11/2022 12:57 PM CASTING OPERATOR DTL Lymphocytes 3.22(H) 0.95 - 3.07 x10(9)/L 04/11/2022 12:57 PM CASTING OPERATOR DTL Monocytes 0.86(H) 0.26 - 0.81 x10(9)/L 04/11/2022 12:57 PM CASTING OPERATOR DTL Eosinophils 0.12 0.03 - 0.48 x10(9)/L 04/11/2022 12:57 PM CASTING OPERATOR DTL Basophils 0.05 0.01 - 0.08 x10(9)/L 04/11/2022 12:57 PM CASTING OPERATOR DTL Blood (Blood, Venous) 04/11/2022 12:23 PM CASTING OPERATOR 04/11/2022 12:51 PM CASTING OPERATOR Arnulfo Biggs APRN.N.P. LAB BLOOD ADD-ON Performing Organization Address City/[facility]/ZIP Co de Phone Number [facility] [address] [place] [address] * Sedimentation Rate (04/11/2022 12:23 PM CASTING OPERATOR) Sedimentation Rate, B 10 2 - 20 mm/h 04/11/2022 1:48 PM CASTING OPERATOR DTL Blood (Blood, Venous) 04/11/2022 12:23 PM CASTING OPERATOR 04/11/2022 12:51 PM CASTING OPERATOR Arnulfo Biggs APRN.N.P. LAB BLOOD ADD-ON Performing Organization Address City/[facility] Co de Phone Number [facility] 200 [place] [address] * CRP (C-Reactive Protein) (04/11/2022 12:23 PM CASTING OPERATOR) C-Reactive Protein (CRP), S <3.0 <=8.0 mg/L 04/11/2022 1:27 PM CASTING OPERATOR DTL Blood (Blood, Venous) 04/11/2022 12:23 PM CASTING OPERATOR 04/11/2022 1:07 PM CASTING OPERATOR Arnulfo Biggs APRN.N.P. LAB BLOOD ADD-ON Performing Organization Address City/[facility]/ZIP Co de Phone Number [facility] 200 [place] [address] documented in this encounter Visit Diagnoses Diagnosis Spondylitis Ankylosing (HCC) documented in this encounter Additional Health Concerns Assessment Noted Time PHQ-9 Depression Total Score: 6 12/09/19 22 2:03 PM CDT documented as of this encounter Care Teams Stump Shooter Relationship Specialty Start Date End Date Blaine Casanova M.D. [address] [facility] [place] [phone] PCP - General 12/09/21 03/22/23 documented as of this encounter
--- OUTSIDE RECORDS SUMMARY | 2023-03-26 12:40 | XMS_ITS | Encounter Summary ---
Author Name Unknown Organization [facility] Address [address] [place] [address] Care Team Providers Care Director Of Music Name Role Phone Blaine Casanova M.D. Primary Care Provider + [phone] Reason for Visit * Reason Comments Med Refill Encounter Details Date Type Department Care Team (Late st Contact Info) Description 04/18/2022 Refill Division of Rheumatology in [place], [place] [address] [place] [phone] Ayala Roth, [place], C.N.P. [address] [place] [phone] Med Refill Social History Tobacco Use Types Packs/Day Years [...] How often do you attend chur or gnosticism services? Never 12/15/2021 Do you belong to any clubs o r organizations such as synagogue groups, unions, fraternal or athletic groups, or [...] 12/15/2021 PHQ-2 Answer Date Recorded PHQ-2 Score 1 04/16/2022 [facility] of Occupat ionsd Health - Occupational Stress Questionnaire Answer Date [...] place to sleep or slept in a fpc (including now)? No 12/15/2021 Depression Answer Date Recor ded PHQ-9 Total Score (max 27) 10 04/16 Nutrition Answer Date Recorded Nutrition: EVOO Fat [...] Sex Assigned at Female 02/06/2017 1:39 PM LEAD INJECTION MOLD TECHNICIAN Gender Identity Female 02/06/2017 1:39 PM LEAD INJECTION MOLD TECHNICIAN Sexual Orientation Straight 02/06/2017 1: 39 PM LEAD INJECTION MOLD TECHNICIAN documented as of this encounter Miscellaneous Notes * Telephone Encounter - Calderon Griffin R.N. - 04/21/2022 11:46 AM CST Prescription renewal request for adalimumab (Humira) received from pharmacy. HISTORY OF PRESENT ILLNESS Last Rheum visit: 04/11/2022 with Ayala Roth APRN, CNP Future office visit: ordered, not yet scheduled Last monitoring labs/eye exam: Not required. Prescription request matches current plan of care. Prescription request matches a current prescription in the Medication List. Exclusion criteria: None ASSESSMENT/PLAN Prescription request renewed per nursing protocol. INJECTION MOLD TECHNICIAN documented in this encounter Plan of Treatment Upcoming Encounters Date Type Department Care Team (Late st Contact Info) Description 03/27/2023 11:30 AM LEAD INJECTION MOLD TECHNICIAN Appointment Department of Laboratory Medicine and Pathology, [facility], in [place], [place] [address] [place] [address] Ayala Roth APRN, C.N.P. [address] [place] [phone] 03/27/2023 2:45 PM LEAD INJECTION MOLD TECHNICIAN Office Visit Division of Rheumatology in [place], [place] [address] [place] [address] Ayala Roth APRN, C.N.P. [address] [place] [phone] documented as of this encounter Visit Diagnoses Diagnosis Spondylitis Ankylosing (HCC) documented in this encounter Additional Health Concerns Assessment Noted Time PHQ-9 Depression Total Score: 10 023 2:35 PM LEAD INJECTION MOLD TECHNICIAN documented as of this encounter Care Teams Director Of Music Relationship Specialty Start Date End Date Blaine Casanova M.D. [address] [place] [phone] PCP - General 12/09/21 03/22/23 documented as of this encounter
--- OUTSIDE RECORDS SUMMARY | 2023-03-26 12:40 | XMS_ITS | Encounter Summary ---
Author Name Unknown Organization [facility] Address [address] [place] [address] Care Team Providers Care Naval Engineer Name Role Phone Blaine Casanova M.D. Primary Care Provider [phone] Encounter Details Date Type Department Care Team (Late st Contact Info) Description 08/09/2022 Orders Only [facility] PCP [facility] MNT Blaine Casanova M.D. [address] [place] [phone] Screening Lipid Social History Tobacco Use Types Packs/Day Years [...] How often do you attend chur or synagogue services? Never 06/19/2022 Do you belong to [...] PHQ-2 Answer Date Recorded PHQ-2 Score 0 06/20/2022 [facility] of Occupat ional Health - Occupational Stress [...] place to sleep or slept in a fdc (including now)? No 06/19/2022 Depression Answer Date Recor ded PHQ-9 Total Score (max 27) 3 06/20 Nutrition Answer Date Recorded Nutrition: EVOO Fat Source Yes 06/19 On average, how many serving s of fruits and vegetables do you eat per day (serving size is equal to 1 cup or approximately the size of a tennis ball)? 2-3 06/19/2022 Dental Answer Date Recorded Dental: Regular Dentist Yes 04/23/19 Employment Answer Date Recorded Employment status Unemployed/not in th e paid workforce and NOT seeking employment 06/19/2022 Education Answer Date Recorded What is the highest level of school you have completed or the highest degree you have received? Bachelor's degree (e.g., BA, AB, BS) 10/23/2018 Sex and Gender Information Value Date Recorded Sex Assigned at Female 02/06/2017 1:39 PM PARTITION ASSEMBLY MACHINE OPERATOR Gender Identity Female 02/06/2017 1:39 PM PARTITION ASSEMBLY MACHINE OPERATOR Sexual Orientation Straight 02/06/2017 1: 39 PM PARTITION ASSEMBLY MACHINE OPERATOR documented as of this encounter Plan of Treatment Upcoming Encounters Date Type Department Care Team (Late st Contact Info) Description 03/27/2023 11:30 AM PARTITION ASSEMBLY MACHINE OPERATOR Appointment Department of Laboratory Medicine and Pathology, [facility] in [place], [place] [address] [place] [address] Ayala Roth APRN, C.N.P. [address] [place] [address] 03/27/2023 2:45 PM PARTITION ASSEMBLY MACHINE OPERATOR Office Visit Division of Rheumatology in [place], [place] [address] [place] [address] Ayala Roth APRN, C.N.P. [address] [place] [address] documented as of this encounter Visit Diagnoses Diagnosis Screening Lipid documented in this encounter Additional Health Concerns Assessment Noted Time PHQ-9 Depression Total Score: 3 06/21/19 23 10:00 AM CDT documented as of this encounter Care Teams Naval Engineer Relationship Specialty Start Date End Date Blaine Casanova M.D. [address] [place] [phone] PCP - General 12/09/21 03/22/23 documented as of this encounter
--- OUTSIDE RECORDS SUMMARY | 2023-03-26 12:40 | XMS_ITS | Encounter Summary ---
Author Name Unknown Organization [facility] Address [address] [place] [address] Care Team Providers Care Intervention Manager Name Role Phone Elsewhere, Pcp Primary Care Provider Unavailabl e Reason for Visit * Reason Onset Date Comments Pre-visit Intake 03/26/2023 DIGNA done 03/26 E EF Encounter Details Date Type Department Care Team (Latest Contact Info) Description 03/26/2023 9:15 AM HOT MILL TIN ROLLER Clinical Communication Virtual Review in [address] [phone] Pre-visit Intake (DIGNA done 03/26 EEF) Social History Tobacco Use Types Packs/Day Years [...] 06/19/2022 How often do you attend chur ch or bahai services? Never 06/19/2022 Do you belong to [...] Answer Date Recorded PHQ-2 Score 0 08/15/2022 [facility] of Occupat ional Health - Occupational [...] slept in a fci (including now)? No 06/19/2022 Depression Answer Date [...] Sex Assigned at Female 02/06/2017 1:39 PM HOT MILL TIN ROLLER Gender Identity Female 02/06/2017 1:39 PM HOT MILL TIN ROLLER Sexual Orientation Straight 02/06/2017 1: 39 PM HOT MILL TIN ROLLER documented as of this encounter Plan of Treatment Upcoming Encounters Date Type Department Care Team (Late st Contact Info) Description 03/27/2023 11:30 AM HOT MILL TIN ROLLER Appointment Department of Laboratory Medicine and Pathology, [facility], in [place], [place] [address] [place] [address] Ayala Roth APRN, C.N.P. [address] [place] [address] 03/27/2023 2:45 PM HOT MILL TIN ROLLER Office Visit Division of Rheumatology in [place], [place] [address] [place] [address] Ayala Roth APRN, C.N.P. [address] [place] [phone] documented as of this encounter Visit Diagnoses Not on filedocumented in this encounter Additional Health Concerns Assessment Noted Time PHQ-9 Depression Total Score: 4 08/16/19 23 9:00 AM CDT documented as of this encounter Care Teams Intervention Manager Relationship Specialty Start Date End Date Elsewhere, Pcp PCP - General Internal Medicine 03/23/23 documented as of this encounter
--- OUTSIDE RECORDS SUMMARY | 2023-03-26 12:40 | XMS_ITS | Encounter Summary ---
Author Name Unknown Organization [facility] Address [address] [place] [address] Care Team Providers Care Oil Transport Driver Name Role Phone Blaine Casanova M.D. Primary Care Provider [phone] Reason for Visit * Reason Onset Date Comments RX APPROVAL 08/01/2022 [employer] Encounter Details Date Type Department Care Team (Latest Contact Info) Description 08/01/2022 Clinical Communication Pharmacy Prior Auth RO [phone] Cinda Kennedy RX APPROVAL (HUMIRA) Social History Tobacco Use Types Packs/Day Years [...] How often do you attend chur or uatsdin services? Never 06/19/2022 Do you belong to any clubs o r organizations such as uatsdin groups, unions, fraternal or athletic groups, or [...] Answer Date Recorded PHQ-2 Score 0 08/15/2022 [facility] Occupat ional Health - [...] place to sleep or slept in a group home (including now)? No 06/19/2022 Depression Answer Date [...] Sex Assigned at Female 02/06/2017 1:39 PM CHANNEL MARKETING PROGRAM MANAGER Gender Identity Female 02/06/2017 1:39 PM CHANNEL MARKETING PROGRAM MANAGER Sexual Orientation Straight 02/06/2017 1: 39 PM CHANNEL MARKETING PROGRAM MANAGER documented as of this encounter Miscellaneous Notes * Telephone Encounter - Mary Borges - 08/11/2022 12:04 PM CDT Pharmaceutical prior authorization has been approved for H[employer]IRA If you have any follow-up questions, please send an [facility] [employer] message to P [facility] [employer]. documented in this encounter Plan of Treatment Upcoming Encounters Date Type Department Care Team (Late st Contact Info) Description 03/27/2023 11:30 AM CHANNEL MARKETING PROGRAM MANAGER Appointment Department of Laboratory Medicine and Pathology, [facility], in [place], [place] [address] [place] [address] Ayala Roth APRN, C.N.P. [address] [place] [phone] 03/27/2023 2:45 PM CHANNEL MARKETING PROGRAM MANAGER Office Visit Division of Rheumatology in [place], [place] [address] [place] [address] Ayala Roth APRN, C.N.P. [address] [place] [phone] documented as of this encounter Visit Diagnoses Not on filedocumented in this encounter Additional Health Concerns Assessment Noted Time PHQ-9 Depression Total Score: 3 06/21/19 23 10:00 AM CDT documented as of this encounter Care Teams Oil Transport Driver Relationship Specialty Start Date End Date Blaine Casanova M.D. [address] [place] [phone] PCP - General 12/09/21 03/22/23 documented as of this encounter
--- OUTSIDE RECORDS SUMMARY | 2023-03-26 12:40 | XMS_ITS | Encounter Summary ---
Author Name Unknown Organization [facility] Address [address] [place] [address] Care Team Providers Care Fashion Styling Intern Name Role Phone Blaine Casanova M.D. Primary Care Provider + [phone] Reason for Visit * Reason Comments Med Refill Encounter Details Date Type Department Care Team (Late st Contact Info) Description 09/26/2022 Refill Division of Rheumatology in [place], [place] [address] [place] [phone] Ayala Roth, [place]WTON, C.N.P. [address] [place] [phone] Med Refill Social History Tobacco Use Types [...] How often do you attend chur or jewish services? Never 06/19/2022 Do you belong to any clubs o r organizations such as pentecostalism groups, unions, fraternal or athletic groups, or [...] Answer Date Recorded PHQ-2 Score 0 08/15/2022 [facility] of Occupat ionmd Health - Occupational Stress Questionnaire Answer Date [...] money to buy more. Never true 06/20/19 23 Within the past 12 months, t he [...] place to sleep or slept in a mcfp (including now)? No 06/19/2022 Depression Answer Date [...] Sex Assigned at Female 02/06/2017 1:39 PM PRIMARY SCHOOL TEACHER LIBRARIAN Gender Identity Female 02/06/2017 1:39 PM PRIMARY SCHOOL TEACHER LIBRARIAN Sexual Orientation Straight 02/06/2017 1: 39 PM PRIMARY SCHOOL TEACHER LIBRARIAN documented as of this encounter Miscellaneous Notes * Telephone Encounter - Amy, Neetu L, R.N. - 09/28/2022 3:02 PM CDT Prescription renewal request for adalimumab (Humira) received from pharmacy. HISTORY OF PRESENT ILLNESS Last Rheum visit: 04/11/22 with Ayala Roth APRN, CNP Future office visit: ordered, not yet scheduled Last monitoring labs/eye exam: Not required. Prescription request matches current plan of care. Prescription request matches a current prescription in the Medication List. Exclusion criteria: None ASSESSMENT/PLAN Prescription request renewed per nursing protocol. documented in this encounter Plan of Treatment Upcoming Encounters Date Type Department Care Team (Late st Contact Info) Description 03/27/2023 11:30 AM PRIMARY SCHOOL TEACHER LIBRARIAN Appointment Department of Laboratory Medicine and Pathology, [facility], in [place], [place] [address] [place] [address] Ayala Roth APRN, C.N.P. [address] [place] [address] 03/27/2023 2:45 PM PRIMARY SCHOOL TEACHER LIBRARIAN Office Visit Division of Rheumatology in [place], [place] [address] [place] [address] Ayala Roth APRN, C.N.P. [address] [place] [phone] documented as of this encounter Visit Diagnoses Diagnosis Spondylitis Ankylosing (HCC) documented in this encounter Additional Health Concerns Assessment Noted Time PHQ-9 Depression Total Score: 4 08/16/19 23 9:00 AM CDT documented as of this encounter Care Teams Fashion Styling Intern Relationship Specialty Start Date End Date Blaine Casanova M.D. [address] [place] [phone] PCP - General 12/09/21 03/22/23 documented as of this encounter
--- OUTSIDE RECORDS SUMMARY | 2023-03-26 12:40 | XMS_ITS | Referral Summary ---
Author Name Unknown Organization [facility] Address [address] [place] [address] Care Team Providers Care Exhibit Artist Name Role Phone Elsewhere, Pcp Primary Care Provider Unavailabl e Source Comments Patient records contain information from all sites at [facility]. For routine questions regarding patient records, call [phone] during business hours, M-F 8:00 AM - 5:00 PM Central Time. Record requests for emergency care only can be directed to [phone] at any time.[facility] Encounters Date Type Department Care Team Description 03/26/2023 9:15 AM SECONDARY ENGLISH TEACHER Clinical Communication Virtual Review in [place], [place] [address] [place], [place] [address] Pre-visit Intake (DIGNA done 03/26 EEF) from Last 3 Months Allergies Active Allergy Reactions Criticality Noted Date Comments Penicillins Hives (Reselect Reaction),Rash High 09/03 Medications Medication Sig Dispensed Refills Start Date End Date Status CHOLECALCIFEROL, VITAMIN D3, ORAL Take 1 capsule by mouth daily. 0 11/06/2013 Active loratadine (for_CLARITIN) 10 mg tablet Take 10 mg by mouth daily. 0 Active vit calc,iron,folic ( VITAMIN ORAL) Take by mouth. 0 Active rizatriptan SPA THERAPIST (MAXALT-SPA THERAPIST) 10 mg disintegrating tablet Take 1 tablet [...] Dizziness 12/10/2013 Acne 11/13/2013 Spondylitis Ankylosing 09/30/2013 Immunizations Name Administration Dates Next Due 4vHPV [...] quad (FLUZONE/FLUARIX) (6 months and older)(PF) 01/05/2021,01/06/2020,02/07/2019,2017,01/03/2017,11/22/2015 Social History Tobacco Use Types Packs/Day Years [...] often do you attend chur ch or congregational services? Never 06/19/2022 Do you belong to any clubs o r organizations such as gnosticist groups, unions, fraternal or athletic groups, or [...] Answer Date Recorded PHQ-2 Score 0 08/15/2022 [facility] - Occupational Stress Questionnaire Answer Date Recorded [...] place to sleep or slept in a custodial (including now)? No 06/19/2022 Depression Answer Date [...] Sex Assigned at Female 02/06/2017 1:39 PM SECONDARY ENGLISH TEACHER Gender Identity Female 02/06/2017 1:39 PM SECONDARY ENGLISH TEACHER Sexual Orientation Straight 02/06/2017 1: 39 PM SECONDARY ENGLISH TEACHER Last Filed Vital Signs Vital Sign Reading Time Taken Comments Blood Pressure 119/79 04/11/2022 2:29 PM SECONDARY ENGLISH TEACHER Pulse 102 04/11/2022 2:29 PM SECONDARY ENGLISH TEACHER Temperature 37 ??C (98.6 ??F) 04/11/2022 2:29 PM SECONDARY ENGLISH TEACHER Respiratory Rate 16 09/14/2017 11:30 AM CDT Oxygen Saturation 99% 04/28/2019 9:29 AM SECONDARY ENGLISH TEACHER Inhaled Oxygen Concentration - - Weight 85.7 kg (189 lb 0.7 oz) 04/11/2022 2:29 P M SECONDARY ENGLISH TEACHER Height 165.5 cm (5' 5.16) 04/11/2022 2:29 PM CS T Body Mass Index 31.31 04/11/2022 2:29 PM SECONDARY ENGLISH TEACHER Plan of Treatment Upcoming Encounters Date Type Department Care Team (Late st Contact Info) Description 03/27/2023 11:30 AM SECONDARY ENGLISH TEACHER Appointment Department of Laboratory Medicine and Pathology, [facility], in [place], [place] [address] [place] [address] Ayala Roth APRN, C.N.P. [address] [place] [phone] 03/27/2023 2:45 PM SECONDARY ENGLISH TEACHER Office Visit Division of Rheumatology in [place], [place] [address] [place] [phone] Ayala Roth APRN, C.N.P. [address] [place] [phone] Medical Devices Implanted Type Area Foil Stamp Operator Device Identifier Shelf Expiration Date Model / Serial / Lot Hardware E.G. Pins/Screws/Wale s Hardware e.g. pins/screws/wale s Left: Wrist Intrauterine Device Intrauterine Device Cervix Advance Directives For more information, please contact: [phone] Latest Code Status on File Code Status Date Activated Date Inactivated Comments Full Code 02/01/2017 12:00 PM 02/01/2017 2:51 PM Question Answer Comments Full Code: Discussed Code Status History Code Status Date Activated Date Inactivated Comments Full Code 02/01/2017 10:01 AM 02/01/2017 12:00 PM Question Answer Comments Full Code: Discussed Care Teams Exhibit Artist Relationship Specialty Start Date End Date Elsewhere, Pcp PCP - General Internal Medicine 03/23/23
== END 2023-03-22 09:11 | disposition home or self-care (01) ==
LOC: NFLDREF 03-26 12:38
PROVIDERS: PCP Physician Assistant Medical; Referring Provider Physician Assistant Medical; Visit Provider Physician Assistant Medical
DX: Z00.00 Encounter for general adult medical examination without abnormal findings (principal); Z13.6 Encounter for screening for cardiovascular disorders; Z13.1 Encounter for screening for diabetes mellitus; Z13.29 Encounter for screening for other suspected endocrine disorder
CPT/HCPCS: 80061; 82947; 84443

== ENCOUNTER 2023-04-04 08:44 | Outpatient (CLI) | payer BC, SELFPAY ==
--- NOTE | 2023-04-04 09:15 | CRLHL7_ITS ---
For Patients: As a result of the Century Cures Act, medical imaging exams and procedure reports are released immediately into your electronic medical record. You may view this report before your referring provider. If you have questions, please contact your health care provider. Indication: Infertility Technique: Fluoroscopic guided hysterosalpingogram. Fluoroscopic time 20 seconds. IMPRESSION: Normal spillage of contrast through the fallopian tubes into the peritoneum. No endometrial canal filling defect. Normal exam. Dictated by Thiago Martin MD @ 04/04/2023 9:55:03 AM (Electronically Signed)
--- NOTE | 2023-04-04 09:43 | P.GYNPRC_ITS ---
Procedure Note Time Seen by Provider: 09:10 Date of procedure: 04/04/23 Pre-op diagnosis: Infertility, recurrent loss Post-op diagnosis: other (Infertility, Recurrent loss, Patent fallopian tubes bilaterally) Procedure: Hysterosalpingogram Complications: None Surgeon: Nighat Taylor MD Estimated blood loss (mL): 0 IV fluids (mL): 0 Urine Output (mL): 0 Condition: stable Findings: Patent fallopian tubes bilaterally Procedure Description: PROCEDURE: After obtaining verbal consent, the patient was placed in the dorsal lithotomy position on the x-ray table. An open-sided bivalve speculum was introduced into the vagina and the cervix easily visualized. The cervix and vagina were then prepped with Betadine. The anterior lip of the cervix was grasped with a single-tooth tenaculum for traction. A balloon tipped double- lumen catheter was then gently inserted through the cervical opening into the uterine cavity to the level of the fundus. The balloon was insufflated with 3 mL of air. The patient was repositioned in the supine position, covered, and the radiologist was called to the room. A hysterosalpingogram was then performed. A total of 5 cc of Optiray 300 water soluble contrast dye was injected through the double-lumen catheter under moderate pressure. There was immediate fill of the uterine cavity to the cornua and immediate fill of both fallopian tubes and free spillage of dye on both sides. The balloon was deflated. The catheter was removed. The tenaculum and speculum were removed, hemostasis noted at tenaculum sites. The patient tolerated the procedure well, though she did have moderate cramping discomfort during and just after the procedure (particularly with balloon infiltration). She was discharged to home in stable condition with instructions and to [facility].
== END 2023-04-04 08:45 | disposition home or self-care (01) ==
LOC: RAD 08:44
PROVIDERS: PCP Physician Assistant Medical; Visit Provider Obstetrics & Gynecology
DX: N97.0 Female infertility associated with anovulation (principal)
CPT/HCPCS: 58340; 74740; A4649; Q9967

== ENCOUNTER 2024-03-31 13:39 | Outpatient (CLI) | payer BC, SELFPAY ==
--- NOTE | 2024-03-31 14:00 | CRLHL7_ITS ---
For Patients: As a result of the Century Cures Act, medical imaging exams and procedure reports are released immediately into your electronic medical record. You may view this report before your referring provider. If you have questions, please contact your health care provider. US OB 1ST TRIMESTER TRANSVAGINAL, 03/31/2024 CLINICAL HISTORY: IVF, dating and viability. GA: 8 weeks 2 days. TECHNIQUE: Transvaginal. FINDINGS: CRL: 2.0 cm, 8 weeks 4 days. ANNIA: 11/06/2024. FHR: 178 bpm. Gest Sac: 3.0 cm, appears within normal limits. Yolk Sac: 3.6 mm, appears within normal limits. Right Ovary: WNL: 2.8 x 1.8 x 2.5 cm. Left Ovary: Not visualized. IMPRESSION: 1. Single living intrauterine with sonographic gestational age 8 weeks 4 days and sonographic due date 11/06/2024. 2. Right inferior subchorionic hemorrhage measures 1.5 x 1.7 x 1.9 cm. 3. Simple right paraovarian cyst measures 8 x 9 x 9 mm. Thiago Martin M.D. Diagnostic Radiologist [email or web address] Transcribed: 3:49 pm DW/Dictated by: Thiago Martin MD @ 03/31/2024 3:12:00 PM (Electronically Signed)
== END 2024-03-31 13:40 | disposition home or self-care (01) ==
LOC: US 13:39
PROVIDERS: PCP Physician Assistant Medical; Visit Provider Physician Assistant
DX: O09.811 Supervision of pregnancy resulting from assisted reproductive technology, first trimester (principal); O20.9 Hemorrhage in early pregnancy, unspecified; O34.81 Maternal care for other abnormalities of pelvic organs, first trimester; N83.291 Other ovarian cyst, right side; Z3A.08 8 weeks gestation of pregnancy
CPT/HCPCS: 76817; 83021; 86592; 86703; 86704; 86706; 86762; 86787; 86803; 86850; 86900; 86901; 87086; 87340

== ENCOUNTER 2024-06-23 18:59 | Emergency (ER) | payer BC, SELFPAY ==
--- OUTSIDE RECORDS SUMMARY | 2024-06-23 19:02 | XMS_ITS | Encounter Summary ---
Author Organization [facility] Address [address] [place] [address] Care Team Providers Care Nursing Professor Name Role Phone [place] Alvarezke Yang Primary Care Provider [phone] Encounter Details Date Type Department Care Team (Latest Contact Info) Description 06/08/2024 Travel Social History Tobacco Use Types Packs/Day Years Used Date Smoking Tobacco: Never Assessed Adolescent Education Answer Date Record ed Getting School Help Needed Not on file 11/25 Estimated Date of Delivery Comme nts Yes 11/08/2024 Based on Other B asis, IVF Sex and Gender Information Value Date Recorded Sex Assigned at Not on file Legal Sex Female 9:56 AM CDT Gender Identity Not on file Sexual Orientation Not on file documented as of this encounter Plan of Treatment Upcoming Encounters Date Type Department Care Team (Late Contact Info) Description 06/30/2024 9:30 AM CDT Appointment [facility] Maternal Medicine [facility] [address] [place] [phone] Zoey Mustafa MD [facility] [address] [place] [address] Valentine Grant MD [address] [place] [phone] 06/30/2024 10:00 AM CDT Office Visit [facility] Maternal Medicine [facility] [address] [place] [address] Zoey Mustafa MD [facility] [address] [place] [address] Valentine Grant MD [address] [place] [phone] 06/30/2024 10:15 AM CDT Appointment [facility] Maternal Medicine [facility] [address] [place] [address] Valentine Grant MD [address] [place] [address] documented as of this encounter Visit Diagnoses Not on filedocumented in this encounter Care Teams Nursing Professor Relationship Specialty Start Date End Date Dana Alvarez DO PCP - General Family Medicine 05/28/20 documented as of this encounter
--- OUTSIDE RECORDS SUMMARY | 2024-06-23 19:02 | XMS_ITS | Encounter Summary ---
Author Organization [facility] Address [address] [place] [address] Care Team Providers Care Rope Silica Machine Operator Name Role Phone Elsewhere, Pcp Primary Care Provider Unavailabl e Reason for Visit * Reason Onset Date Comments Rx Prior Authorization 06/18/2024 CHEMA VELEZ Encounter Details Date Type Department Care Team (Latest Contact Info) Description 06/18/2024 Clinical Communication Pharmacy Prior Auth RO [id number] Evelia Townsend Rx Prior Authorization (ADALIMUMAB ADAZ) Social History Tobacco Use Types Packs/Day Years Used Date Smoking Tobacco: Former Cigarettes 0 03/05/2007 - 03/05/2010 Passive Smoke Exposure: Past Smokeless Tobacco: Never Alcohol Use Standard Drinks/Week [...] How often do you attend chur or islam services? Never 06/19/2022 Do you belong to any clubs o r organizations such as congregation groups, unions, fraternal or athletic groups, or [...] Answer Date Recorded PHQ-2 Score 0 08/15/2022 [facility] - Occupational [...] 27) 4 08/15 Nutrition Answer Date Recorded On average, how many serving s of fruits and vegetables do you eat per day (serving size is equal to 1 cup or approximately the size of a tennis ball)? 2-3 06/19/2022 Dental Answer Date Recorded Dental: Regular Dentist Yes 04/23/19 21 Employment Answer Date Recorded Employment status Unemployed/not in th e paid workforce and NOT seeking employment 06/19/2022 Education Answer Date Recorded What is the highest level of school you have completed or the highest degree you have received? Bachelor's degree (e.g., BA, AB, BS) 10/23/2018 Estimated Date of Delivery Comme nts Yes 11/08/2024 Sex and Gender Information Value Date Recorded Sex Assigned at Female 02/06/2017 1:39 PM FINANCIAL SERVICES ASSOCIATE Legal Sex Female 9:30 AM FINANCIAL SERVICES ASSOCIATE Gender Identity Female 02/06/2017 1:39 PM FINANCIAL SERVICES ASSOCIATE Sexual Orientation Straight 02/06/2017 1: 39 PM FINANCIAL SERVICES ASSOCIATE documented as of this encounter Plan of Treatment Upcoming Encounters Date Type Department Care Team (Latest Contact Info) Description 07/18/2024 10:45 AM CDT Clinical Communication Virtual Review in [place], [place] [address] [place] [phone] 07/22/2024 2:00 PM CDT Appointment Department of Laboratory Medicine and Pathology, [facility], in [place], [place] [address] [place] [phone] Ayala Roth APRN, C.N.P. [address] [place] [phone] 07/22/2024 3:30 PM CDT Office Visit Division of Rheumatology in [place], [place] [address] [place] [phone] Ayala Roth APRN, C.N.P. [address] [place] [phone] documented as of this encounter Visit Diagnoses Not on filedocumented in this encounter Additional Health Concerns Assessment Noted Time PHQ-9 Depression Total Score: 4 08/16/19 23 9:00 AM CDT documented as of this encounter Care Teams Rope Silica Machine Operator Relationship Specialty Start Date End Date Elsewhere, Pcp PCP - General Internal Medicine 03/23/23 documented as of this encounter
--- OUTSIDE RECORDS SUMMARY | 2024-06-23 19:02 | XMS_ITS | Encounter Summary ---
Author Organization [facility] Address [address] [place] [address] Care Team Providers Care Vascular Technologist Sonographer Name Role Phone Dana Alvarez DO Primary Care Provider [phone] Reason for Referral * Diagnostic Imaging Ultrasound (Routine) - Pending Review Specialty Diagnoses / Procedures Referred By Solac t Referred To Contact Radiology. Diagnoses Placenta previa antepartum in second trimester Conceived by in vitro fertilization Procedures [facility] Comprehensive Single F/U Valentine Grant MD [address] [place] [address] Phone: tel: fax: Referral ID Status Reason Start Date Expiration Date V isits Requested Visits Authorized [id number] Pending Review 06/09/2024 06/09/2025 1 1 * Diagnostic Imaging Ultrasound (Routine) - Pending Review Specialty Diagnoses / Procedures [facility] Ref[facility] To Contact Radiology. Diagnoses Placenta previa antepartum in second trimester Procedures [facility] Single F/U Valentine Grant MD [address] [place] [phone] Phone: tel: fax: Referral ID Status Reason Start Date Expiration Date V isits Requested Visits Authorized [id number] Pending Review 06/09/2024 06/09/2025 1 1 Reason for Visit * Reason Comments Ultrasound L2- AMA, IVF Encounter Details Date Type Department Care Team (Latest Contact Info) Description 06/09/2024 2:45 PM CDT Office Visit [facility] [place] [facility] [place] [address] [facility] [address] [place] [address] Zoey Mustafa MD [facility] [address] [place] [address] Valentine Grant MD [address] [place] [address] Placenta previa antepartum in second trimester (Primary Dx); related condition in second trimester; Multigravida of advanced maternal age in second trimester; resulting from in vitro fertilization in second trimester Social History Tobacco Use Types Packs/Day Years [...] on file documented as of this encounter Progress Notes * Valentine Grant MD - 06/09/2024 2:45 PM CDT The patient was seen for an ultrasound in the [facility] today. For a detailed report of the ultrasound examination, please see the ultrasound report which can be found under the imaging tab. If you have questions regarding today's evaluation or if we can be of further service, please contact the [facility] Medicine Center. Valentine Grant MD Manufacturing Engineer Assembly, ASSISTED LIVING HOME DIRECTOR Maternal- Medicine documented in this encounter Nursing Notes * Sunshine Agustin RN - 06/09/2024 2:45 PM CDT Patient here for L2 Patient denies pain, contractions, leaking of fluid, or bleeding. SBAR given to SHELIA NORWOOD, see their note in Epic. documented in this encounter Plan of Treatment Upcoming Encounters Date Type Department Care Team (Late st Contact Info) Description 06/30/2024 9:30 AM CDT Appointment [facility] [place] [facility] [place] [address] [address] [facility] [address] [place] [phone] Zoey Mustafa MD [address] [address] Valentine Grant MD [address] [place] [phone] 06/30/2024 10:00 AM CDT Office Visit [facility] [place] [facility] [place] [address] [address] [facility] [address] [place] [phone] Zoey Mustafa MD [facility] [address] [place] [address] Valentine Grant MD [address] [place] [phone] 06/30/2024 10:15 AM CDT Appointment [facility] [place] [address] [address] [facility] [address] [place] [phone] Valentine Grant MD [address] [place] [phone] Scheduled Orders Name Type Priority Associated Diagnoses Orde r Schedule [facility] Comprehensive Single F/U Imaging Routine Placenta previa antepartum in second trimester Expected: 08/18/2024 (Approximate), Expires: 06/09/2025 [facility] Comprehensive Single F/U Imaging Routine Placenta previa antepartum in second trimester Expected: 06/30/2024 (Approximate), Expires: 06/09/2025 documented as of this encounter Visit Diagnoses Diagnosis Placenta previa antepartum in second trimester- Primary related condition in second trimester Unspecified complication of , antepartum Multigravida of advanced maternal age in second trimester resulting from in vitro fertilization in second trimester documented in this encounter Care Teams Vascular Technologist Sonographer Relationship Specialty Start Date End Date Dana Alvarez DO PCP - General Family Medicine 05/28/20 documented as of this encounter
--- OUTSIDE RECORDS SUMMARY | 2024-06-23 19:02 | XMS_ITS | Clinical Summary ---
Author Organization [facility] Address [address] [place] [address] Care Team Providers Care Silk Screen Frame Assembler Name Role Phone Elsewhere, Pcp Primary Care Provider Unavailabl e Source Comments Patient records contain information from all sites at [facility]. For routine questions regarding patient records, call [phone] during business hours, M-F 8:00 AM - 5:00 PM Central Time. Record requests for emergency care only can be directed to [phone] at any time.[facility] Allergies Active Allergy Reactions Criticality Noted Date Comments Penicillins Hives (Reselect Reaction),Rash High 09/03 Medications * This document contains information received from the source organization and may not represent a complete record from that organization. CHOLECALCIFEROL, VITAMIN D3, ORAL Take 1 capsule by mouth daily. 4 Active loratadine (for_CLARITIN) 10 mg tablet Take 10 mg by mouth daily. Active vit calc,iron,folic ( VITAMIN ORAL) Take by mouth. Active rizatriptan HOSIERY MENDER (MAXALT-HOSIERY MENDER) 10 mg disintegrating tablet Take 1 tablet (10 mg total) by mouth as needed for migraine (headache). May repeat dose once in 2 hours if migraine unresolved. Do not exceed 30 mg in 24 hours. 18 tablet 11 1 Active sertraline (Zoloft) 100 mg tabletIndications: Depression Major Recurrent Moderate (HCC) Take 1 tablet (100 mg total) by mouth daily. 90 tablet 3 2 Active famotidine (PEPCID) 20 mg tablet Take 20 mg by mouth daily. 2 Active progesterone (PROMETRIUM) 200 mg capsule Take 400 mg by mouth daily. Take at bedtime, vaginally 3 Active letrozole (FEMARA) 2.5 mg tablet Take 5 mg by mouth. 5 days out of cycle 3 Active dextroamphetamine- amphetamine (ADDERALL) 10 mg tablet Take 1 tablet by mouth daily. 3 Active sertraline (ZOLOFT) 100 mg tablet Take 100 mg by mouth daily. Active aspirin [address] tablet Take 81 mg by mouth daily. Active pyridoxine, vitamin B6, (vitamin B-6) 25 mg tablet Take 25 mg by mouth daily. Active doxylamine (Unisom) 25 mg tablet Take 12.5 mg by mouth at bedtime as needed for sleep. Active promethazine (Phenergan) 12.5 mg tablet TAKE 2 TABLETS BY MOUTH EVERY 6 HOURS NEEDED FOR NAUSEA AND VOMITING 5 Active adalimumab-adaz (Hyrimoz,CF,) 40 mg/0.4 mL injectionIndicatio ns:Spondylitis Ankylosing (HCC) Inject 0.4 mL (40 mg total) under the skin every 14 (fourteen) days. 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 hx of cyclical vomiting as a child. Diarrhea Persistent Unexplained 05/12/2014 Migraine Headache With Aura 01/02/2014 Dizziness 12/10/2013 Acne 11/13/2013 Spondylitis Ankylosing 09/30/2013 Estimated Date of Delivery Comme nts Yes 11/08/2024 Encounters Date Type Department Care Team Description 06/20/2024 Orders Only [facility] [place] [address] [place] [phone] Leonard Alyssa R 06/18/2024 Clinical Communication Pharmacy Prior Auth RO [phone] Evelia Townsend Rx Prior Authorization (ADALIMUMAB ADAZ) 04/29/2024 3:30 PM COLLATOR HAND Office Visit Division of Rheumatology in [place], [place] [address] [place] [phone] Ayala Roth APRN, C.N.P. Spondylitis Ankylosing (HCC) (Primary Dx) 04/29/2024 1:49 PM COLLATOR HAND - 04/29/2024 11:59 PM COLLATOR HAND Hospital Encounter Department of Laboratory Medicine and Pathology, [facility], in [place], [place] [address] [place] [phone] Ayala Roth APRN, C.N.P. Spondylitis Ankylosing (HCC) Discharge Disposition: Home or Self Care 04/23/2024 Clinical Communication Division of Rheumatology in [address] [phone] Ayala Roth APRN, C.N.P. 04/18/2024 2:45 PM COLLATOR HAND Clinical Communication Virtual Review in [place], [place] 200 [place] [phone] Pre-visit Intake from Last 3 Months Immunizations Immunization Administration Dates Next Due 4vHPV (discontinued) 01/25/2007,09/25/2006,07/25 DTP 09/23/1992, 9,02/15/1988,1987,1987 HepA Adult 09/30/2007,02/28/2007 HepB (discontinued) adolesce nt/high risk 12/11/1995,07/17/1995,06/12/1995 HepB Pediatric/Adolescent 12/11/1995,07/17/1995, 06/12/1995 Hib (HbOC) (discontinued) 05/15/1989 Influenza, Injectable, Quadrivalent 01/06/2015 Influenza, Seasonal, Injectable 01/21/2013 Influenza, Unspecified 01/03/2017,2015,01/06/2015,2013 MCV4 (Menactra)(Discontinued) 09/06/2005 MMR 09/23/1992,10/26/1988 OPV 09/23/1992, 9,1987,1987 PPSV23 01/24/2013 SARS-COV-2 (COVID-19) - JENNIFER MATHEW (J&J)(Discontinued) 06/09/2020 SARS-COV-2 (COVID-19) - PFIZ ER (Discontinued)(12 years or older) 12/01/2020 Td (Adult), adsorbed 11/12/2001 Tdap 11/24/2010 influenza trivalent vaccine (6 months and older)(PF) 01/21/2013 influenza vaccine quad (FLUZONE/FLUARIX) (6 months and [...] you attend chur or yazidi services? Never 06/19/2022 Do you belong to [...] Answer Date Recorded PHQ-2 Score 0 08/15/2022 [facility] of Occupat ional Health - Occupational Stress [...] place to sleep or slept in a senior living (including now)? No 06/19/2022 Depression Answer Date [...] Sex Assigned at Female 02/06/2017 1:39 PM COLLATOR HAND Legal Sex Female 9:30 AM COLLATOR HAND Gender Identity Female 02/06/2017 1:39 PM COLLATOR HAND Sexual Orientation Straight 02/06/2017 1: 39 PM COLLATOR HAND Last Filed Vital Signs Vital Sign Reading Time Taken Comments Blood Pressure 119/83 03/27/2023 2:40 PM COLLATOR HAND Pulse 96 03/27/2023 2:40 PM COLLATOR HAND Temperature 36.7 C (98.1 F) 03/27/2023 2:40 PM COLLATOR HAND Respiratory Rate 16 09/14/2017 11:3 0 AM CDT Oxygen Saturation 99% 04/28/2019 9:29 AM COLLATOR HAND Inhaled Oxygen Concentration - - Weight 85.2 kg (187 lb 13.3 oz) 03/27/2023 2:40 PM COLLATOR HAND Height 164.4 cm (5' 4.72) 03/27/2023 2:40 PM CS T Body Mass Index 31.52 03/27/2023 2:40 PM COLLATOR HAND Plan of Treatment Upcoming Encounters Date Type Department Care Team (Latest Contact Info) Description 07/18/2024 10:45 AM CDT Clinical Communication Virtual Review in [place], [place] 200 [place] [phone] 07/22/2024 2:00 PM CDT Appointment Department of Laboratory Medicine and Pathology, [facility], in [place], [place] [address] [place] [phone] Ayala Roth APRN, C.N.P. [address] [place] [phone] 07/22/2024 3:30 PM CDT Office Visit Division of Rheumatology in [place], [place] [address] [place] [phone] Ayala Roth APRN, C.N.P. [address] [place] [phone] Health Maintenance Due Date Last Done Comments Hepatitis C Screening 1987 Zoster Vaccines (1 of 2) 06/14/2006 Pneumococcal vaccine (0-49 y ears) (2 of 2 - PCV) 01/24/2014 01/24/2013 Lipid (Cholesterol) Screening 10/03/2018 10/03/2013 Depression Monitoring (PHQ-9) 12/15/2022 08/15/2022 COVID-19 Vaccine (6 - 2023-2 5 season) 2023 12/04/2022, 01/12/2022, 09/27/2021, Additional history exists Depression Monitoring (PHQ-9 for quality tracking) 03/05/2024 Tdap vaccine - (27- 36 weeks) (1 - Tdap) 08/09/2024 07/27/2021, 11/24/2010 Cervical/Vaginal Cancer Screening 11/27/2024 11/28/2019, 11/28/2019, 02/06/2017, Additional history exists DTaP,Tdap,and Td Vaccines (8 - Td or Tdap) 07/28/2031 07/27/2021, 11/24/2010, 11/12/2001, Additional history exists IPV Vaccines Completed 09/23/1992, 02/02, 1987, Additional history exists Hepatitis B Vaccines Completed 12/11/1995, 12/11/1995, 07/17/1995, Additional history exists HPV Vaccines Completed 01/25/2007, 09/03, 07/25/2006 Hepatitis A Vaccines Completed 09/30/2007, 02/29/20 07 HIV Screening Completed 10/03/2013 Influenza Vaccine Completed 01/21/2024, , 12/19/2021, Additional history exists RSV vaccine - (32-3 6 weeks) or 60+ years (No Doses Required) Completed Medical Devices Implanted Type Area Corporate Receptionist Device Identifier Shelf Expiration Date Model / Serial / Lot Hardware E.G. Pins/Screws/Wale s Hardware e.g. pins/screws/wale s Left: Wrist Intrauterine Device Intrauterine Device Cervix Procedures Procedure Name Priority Date/Time Associated Diagnosis Comments CREATININE WITH EGFR, S/P Routine 04/29/2024 2:00 PM COLLATOR HAND Spondylitis Ankylosing (HCC) ASPARTATE AMINOTRANSFERASE (AST), S/P Routine 04/29/2024 2:00 PM COLLATOR HAND Spondylitis Ankylosing (HCC) CBC WITH DIFFERENTIAL, B Routine 025 2:00 PM COLLATOR HAND Spondylitis Ankylosing (HCC) SEDIMENTATION RATE, B Routine 04/29/2024 2:00 PM COLLATOR HAND Spondylitis Ankylosing (HCC) C-REACTIVE PROTEIN (CRP), S/P Routine 04/29/2024 2:00 PM COLLATOR HAND Spondylitis Ankylosing (HCC) THINPREP W/HPV CO-TEST SCREEN Routine 11/28/2019 1:49 PM CDT Pap Smear Examination HIV-1/-2 AG AND AB SCREEN Routine 10/03/2013 7:09 AM CDT LIPID PANEL, S Routine 10/03/2013 7:09 AM CDT from Last 3 Months or Most Recently Relevant to Health Maintenance Results * Sedimentation Rate (04/29/2024 2:00 PM COLLATOR HAND) Pathologist [facility] Sedimentation Rate, B 14 2 - 20 mm/h 04/29/2024 6:13 PM COLLATOR HAND DTL Blood (Blood, Venous) 04/29/2024 2:00 PM COLLATOR HAND 04/29/2024 2:27 PM COLLATOR HAND Ayala Roth APRN, C.N.P. LAB BLOOD ADD-ON F inal Result [place] [address] [place] [address], [facility] [address] [place] [address] * (ABNORMAL) CBC with Differential, Blood (04/29/2024 2:00 PM COLLATOR HAND) Hemoglobin 11.6 11.6 - 15.0 g/dL 04/29/2024 2:37 PM COLLATOR HAND DTL Hematocrit 35.4(L) 35.5 - 44.9 % 04/29/2024 2:37 PM COLLATOR HAND DTL Erythrocytes 3.76(L) 3.92 - 5.13 x10(12)/L 04/29/2024 2:37 PM COLLATOR HAND DTL MCV 94.1 78.2 - 97.9 fL 04/29/2024 2:37 PM COLLATOR HAND DTL RBC Distrib Width 12.2 12.2 - 16.1 % 04/29/2024 2:37 PM COLLATOR HAND DTL Platelet Count 354 157 - 371 x10(9)/L 04/29/2024 2:37 PM COLLATOR HAND DTL Leukocytes 10.6(H) 3.4 - 9.6 x10(9)/L 04/29/2024 2:37 PM COLLATOR HAND DTL Neutrophils 6.71(H) 1.56 - 6.45 x10(9)/L 04/29/2024 2:37 PM COLLATOR HAND DHPM Lymphocytes 2.95 0.95 - 3.07 x10(9)/L 04/29/2024 2:37 PM COLLATOR HAND DTL Monocytes 0.78 0.26 - 0.81 x10(9)/L 04/29/2024 2:37 PM COLLATOR HAND DTL Eosinophils 0.11 0.03 - 0.48 x10(9)/L 04/29/2024 2:37 PM COLLATOR HAND DTL Basophils 0.03 0.01 - 0.08 x10(9)/L 04/29/2024 2:37 PM COLLATOR HAND DTL Blood (Blood, Venous) 04/29/2024 2:00 PM COLLATOR HAND 04/29/2024 2:27 PM COLLATOR HAND Ayala Roth APRN, C.N.P. LAB BLOOD ADD-ON F inal Result [facility] [address] [place] [address], [facility] DTL [facility] [address] [place] [address] DHPM [facility] [address] [place] [address] * CRP (C-Reactive Protein) (04/29/2024 2:00 PM COLLATOR HAND) Pathologist [facility] C-Reactive Protein (CRP), S 4.9 <5.0 mg/L 04/29/2024 3:04 PM COLLATOR HAND DTL Blood (Blood, Venous) 04/29/2024 2:00 PM COLLATOR HAND 04/29/2024 2:37 PM COLLATOR HAND Ayala Roth APRN, C.N.P. LAB BLOOD ADD-ON F inal Result [facility] [address] [place] [address], [facility] [address] [place] [address] * AST (Aspartate Aminotransferase) (04/29/2024 2:00 PM COLLATOR HAND) Aspartate Aminotransferase (AST), S 19 8 - 43 U/L 04/29/2024 3:04 PM COLLATOR HAND DTL Blood (Blood, Venous) 04/29/2024 2:00 PM COLLATOR HAND 04/29/2024 2:37 PM COLLATOR HAND yAala Roth APRN, C.N.P. LAB BLOOD ADD-ON F inal Result Performing Organization Address [facility] Co de Phone Number [facility] [address] [place] [address], [facility] [address] [place] [address] * (ABNORMAL) Creatinine with Estimated GFR (04/29/2024 2:00 PM COLLATOR HAND) Creatinine 0.50(L) 0.59 - 1.04 mg/dL 04/29/2024 3:04 PM COLLATOR HAND DTL Estimated GFR (eGFR) >90 >=60 mL/min/BSA 04/29/2024 3:04 PM COLLATOR HAND DTL Comment: Estimated GFR calculated using the 2020 CKD_EPI creatinine equation. Blood (Blood, Venous) 04/29/2024 2:00 PM COLLATOR HAND 04/29/2024 2:37 PM COLLATOR HAND Ayala Roth APRN, C.N.P. LAB BLOOD ADD-ON F inal Result [facility] [address] [place] [address], [facility] [address] [place] [address] * ThinPrep w/HPV Co-Test Screen (11/28/2019 1:49 PM CDT) 12/03/2019 12:39 PM CDT ECLR Disclaimer High risk HPV testing, Real-Time Polymerase Chain Reaction (PCR) was performed on the liquid-based cytology specimen at [facility], [place], [place]. 12/03/2019 12:39 PM CDT ECLR Report electronically signed by FELICITA Warren(ASCP) I verify that I have examined all relevant slides/materials for the specimen(s) and rendered or confirmed the diagnosis. 12/03/2019 12:39 PM CDT ECLR Gross Description Received specimen in a ThinPrep vial. 12/03/2019 12:39 PM CDT ECLR Pap Test Source Cervical/Endocervi rosario 12/03/2019 12:39 PM CDT ECLR Interpretation Cervical/Endocervi rosario (ThinPrep): Satisfactory for Evaluation Endocervical/trans formation zone components absent Partially obscuring inflammation Negative for Intraepithelial Lesion or Malignancy High Risk HPV testing results are NEGATIVE. See specific genotype results below. HPV with Genotyping, PCR, ThinPrep: HPV High Risk Type 16, PCR: NEGATIVE HPV High Risk Type 18, PCR: NEGATIVE HPV other High Risk types, PCR: NEGATIVE Other High Risk HPV types include: 31, 33, 35, 39, 45, 51, 52, 56, 58, 59, 66, and 68. 12/03/2019 12:39 PM CDT ECLR Varies (Cervix/Endocerv ix) 11/28/2019 1:49 PM CDT 12/01/2019 10:03 AM CDT us Merry Alvarez D.O. LAB PAP PATHDX ORDERABLE S Final Result [facility] [address] [place] [id number], [facility] ECLR [facility] in [address] [address] * Lipid Panel (10/03/2013 7:09 AM CDT) Cholesterol, Total 196 <=200 MGDL POWERCHART Comment: ADULTS: Desirable: < 200 mg/dL Increased Risk: 200-240 mg/dL High Risk: > 240 mg/dL PEDIATRIC: National Heart, Lung, and Blood [place] Cholesterol Guidelines for Pediatrics and Adolescents: Acceptable: < 170 mg/dL Borderline: 170-199 mg/dL High: > 199 mg/dL HX HDL 48 40 - 60 MGDL POWERCHART Triglycerides 149 <=150 MGDL POWERCHART Comment: The National Cholesterol Education Program (NCEP) has set the following guidelines for Triglycerides in adults ages 18 and up: Normal <150 mg/dL Borderline 150-199 mg/dL High 200-499 mg/dL Very High > or = 500 mg/dL The National Cholesterol Education Program (NCEP) has set the following guidelines for Triglycerides in children ages 2 to 17. Normal <90 mg/dL Borderline 90-129 mg/dL High > or = 130 mg/dL Calculated LDL 118 1 - 130 MGDL POWERCHART Comment: This is a calculated LDL. ADULT RANGES: Desirable: <100 mg/dL Low Risk: 100-129 mg/dL Borderline High Risk: 130-159 mg/dL High Risk: 160-189 mg/dL Very High Risk: >189 mg/dL PEDIATRIC: National Heart, Lung, and Blood [place] LDL Guidelines for Pediatrics and Adolescents: Acceptable: < 110 mg/dL Borderline: 110-129 mg/dL High: >129 mg/dL Total Cholesterol/HDL Ratio 4 POWERCHART HXLDL/HDL 2 POWERCHART Blood 10/03/2013 7:09 AM CDT Destinee Rome M.D. LAB BLOOD ADD-ON Final Result POWERCHART * HIV-1/-2 Ag and Ab Screen (10/03/2013 7:09 AM CDT) Pathologist [facility] HIV-1/-2 Antibody Negative Negative POWERCHART Comment: Negative result does not rule out HIV infection. If acute HIV infection is suspected in a high-risk individual, submit plasma specimen for HIV-1 RNA quantification test (HIVQU) and/or HIV-2 DNA/RNA test (FHV2Q). Test Performed by: [place] [address] Director Of Child Welfare Services: Shimon Hartmann III, M.D. Blood 10/03/2013 7:09 AM CDT Destinee Rome M.D. LAB MICROBIOLOGY - BLOOD ORDER SARA Final Result POWERCHART from Last 3 Months or Most Recently Relevant to Health Maintenance Insurance [facility] Advance Directives For more information, please contact: [phone] * Full Code (Latest Code Status on File) Date Activated Date Inactivated Comments 02/01/2017 12:00 PM 02/01/2017 2:51 PM Question Answer Comments Full Code: Discussed * Full Code Date Activated Date Inactivated Comments 02/01/2017 10:01 AM 02/01/2017 12:00 PM Question Answer Comments Full Code: Discussed Care Teams Silk Screen Frame Assembler Relationship Specialty Start Date End Date Elsewhere, Pcp PCP - General Internal Medicine 03/23/23
--- OUTSIDE RECORDS SUMMARY | 2024-06-23 19:02 | XMS_ITS | Clinical Summary ---
Author Organization [place] Address [address] [place] [address] Care Team Providers Care Pick Remover Name Role Phone [place] Alvarezke Yang Primary Care Provider [phone] Allergies Active Allergy Reactions Criticality Noted Date Comments Penicillins Hives,Rash Low 05/28/2020 Encounters Date Type Department Care Team Description 06/09/2024 2:45 PM CDT Office Visit [facility] [address] [place] [address] Zoey Mustafa MD Hoover, Elizabeth, MD Placenta previa antepartum in second trimester (Primary Dx); related condition in second trimester; Multigravida of advanced maternal age in second trimester; resulting from in vitro fertilization in second trimester 06/09/2024 1:54 PM CDT - 06/09/2024 11:59 PM CDT Hospital Encounter [facility] [address] [facility] [address] [place] [phone] Zoey Mustafa MD Hoover, Elizabeth, MD related condition, antepartum Discharge Disposition: Home or Self Care 06/09/2024 Travel 06/08/2024 Travel 06/02/2024 PRE VISIT [facility] [address] [facility] [address] [place] [address] Sunshine Agustin, MARIA E Genetic Counseling (AMA, IVF); Ultrasound (L2- AMA, IVF) 04/29/2024 Transcribe Orders [facility] [place] [address] [place] [facility] [address] [place] [phone] Zoey Mustafa MD related condition, antepartum (Primary Dx) 04/28/2024 Medical Correspondence [facility] Information Management [address] [facility] [address] [place] [address] Scan, Non-Provider from Last 3 Months Social History Tobacco Use Types Packs/Day Years [...] 82 05/28/2020 12:30 PM CDT Temperature 36.4 C (97.5 F) 05/28/2020 10:00 AM CDT Respiratory Rate 18 05/28/2020 10:00 AM CDT Oxygen Saturation 98% 05/28/2020 12:30 PM CDT Inhaled Oxygen Concentration - - Weight - - Height - - Body Mass Index - - Plan of Treatment Upcoming Encounters Date Type Department Care Team (Late st Contact Info) Description 06/30/2024 9:30 AM CDT Appointment [facility] Medicine [place] [address] [place] [facility] [address] [place] [phone] [facility] [address] [place] [address] Valentine Grant MD [address] [place] [address] 06/30/2024 10:00 AM CDT Office Visit [facility] [place] [address] [place] [facility] [address] [place] [phone] Zoey Mustafa [facility] [address] [place] [address] Valentine Grant MD [address] [place], [place] [phone] 06/30/2024 10:15 AM CDT Appointment [facility] [address] [place] [facility] [address] [place] [phone] Valentine Grant MD [address] [place] [address] Health Maintenance Due Date Last Done Comments ADVANCE CARE PLANNING 1985 ANNUAL REVIEW OF HM ORDERS 1985 HIV SCREENING 06/14/2002 HEPATITIS C SCREENING 06/14/2005 YEARLY PREVENTIVE VISIT 11/27/2020 11/28/2019, 02/06 PAP 11/27/2022 11/28/2019 DIABETES SCREENING 05/29/2023 05/28/2020 COVID-19 Vaccine ( season) 2023 12/04/2022, 01/12/2022, 09/27/2021, Additional history exists PHQ-2 (once per calendar year) 2024 MATERNAL SCREENING DISCUSSION 04/12/2024 OBGCT (OB) 07/19/2024 DTAP/TDAP/TD IMMUNIZATION (8 - Td or Tdap) 07/28/2031 07/27/2021, 11/24/2010, 11/12/2001, Additional history exists ZOSTER IMMUNIZATION (1 of 2) 06/14/2037 HEPATITIS B IMMUNIZATION Completed 996, 07/17/1995, 06/12/1995 MENINGITIS IMMUNIZATION Completed 09/06/2005 HPV IMMUNIZATION Completed 01/25/2007, , 07/25/2006 Pneumococcal Vaccine: Pediatrics (0 to 5 Years) and At-Risk Patients (6 to 49 Years) Aged Out 01/24/2013 No longer eligible based on patient's age to complete this topic INFLUENZA VACCINE Completed 01/21/2024, , 12/19/2021, Additional history exists RSV VACCINE (No Doses Required) Completed Procedures Procedure Name Priority Date/Time Associated Diagnosis Comments [facility] COMPREHENSIVE SINGLE Routine 06/09/2024 3:03 PM CDT related condition, antepartum COMPREHENSIVE METABOLIC PANEL STAT 05/28/2020 11:36 AM CDT from Last 3 Months or Most Recently Relevant to Health Maintenance Results * [facility] US Comprehensive Single (06/09/2024 3:03 PM CDT) Anatomical Region Laterality Modality Ultrasound 06/09/2024 2:01 PM CDT Impressions 06/09/2024 5:01 PM CDT IMPRESSION ----- 1. Cannon at 18w 2d gestational age. 2. No anomalies commonly detected by ultrasound were identified in the detailed anatomic survey within the limits of ultrasound, however some cardiac views were suboptimal, as described above. 3. Growth parameters and estimated weight were consistent with gestational age predicted by assigned ANNIA. 4. The amniotic fluid volume appeared normal. 5. On transvaginal imaging the cervix appeared long and closed. The is a marginal venous sinus placenta previa. Narrative 06/09/2024 5:01 PM CDT Comprehensive ----- Pat. Name: ANGELIKA BA Study Date: 06/09/2024 2:01pm Pat. NO: [id number] Referring MD: ZOEY GRIFFIN Site: Rescue Instructor: Maryann Grimes RDMS : 1985 Age: 38 ----- INDICATION ----- AMA IVF METHOD ----- Transabdominal and transvaginal ultrasound approaches were used. (Transvaginal ultrasound examination was required to adequately complete the exam.). View: Suboptimal view: limited by position. ----- Cannon . Number of fetuses: 1 DATING ----- Date Details Gest. age ANNIA Conception Conception: IVF Embryo transfer 02/21/2024 IVF / ET: 5 d 18 w + 2 d 11/08/2024 Previous U/S 03/31/2024 GA, GA 8 w + 4 d 18 w + 4 d 11/06/2024 U/S 06/09/2024 based upon AC, BPD, Femur, HC 18 w + 5 d 11/05/2024 Assigned dating based on the IVF / ET date, selected on 06/09/2024 18 w + 2 d 11/08/2024 GENERAL EVALUATION ----- Cardiac activity present. FHR 148 bpm. movements: present. Presentation: cephalic Placenta: Anterior, venous sinus previa. Umbilical cord: 3 vessel cord Amniotic fluid: Amount of AF: normal. MVP 5.7 cm BIOMETRY ----- BPD 41.8 mm 18w 5d Hadlock OFD 55.8 mm 18w 3d Nicolaides HC 156.4 mm 18w 4d Hadlock Cerebellum tr 18.7 mm 18w 2d Nicolaides Nuchal fold 2.8 mm AC 131.7 mm 18w 5d 61% Hadlock Femur 28.3 mm 18w 5d Hadlock Humerus 27.6 mm 18w 6d Agustina Weight Calculation: EFW 251 g 67% Hadlock EFW (lb,oz) 0 lb 9 oz EFW by Hadlock ([id number]) Head / Face / Neck Biometry: Child Care Centre Director 6.0 mm CM 3.3 mm Nasal bone 5.7 mm ANATOMY ----- The following structures appear normal: Head / Neck Cranium. Head size. Head shape. Lateral ventricles. Choroid plexus. Midline falx. Cavum septi pellucidi. Cerebellum. Cisterna magna. Parenchyma. Thalami. Vermis. Neck. Nuchal fold. Face Lips. Profile. Nose. Maxilla. Mandible. Orbits. Lens. Heart / Thorax RVOT view. LVOT view. 3-vessel view. 3-eathts-esqqjog view. Situs. Bicaval view. Ductal arch view. Superior vena cava. Inferior vena cava. Cardiac position. Cardiac size. Cardiac rhythm. Right lung. Left lung. Diaphragm. Abdomen Abdom. wall. Cord insertion. Stomach. Kidneys. Bladder. Liver. Bowel. Genitals. Spine Cervical spine. Thoracic spine. Lumbar spine. Sacral spine. Extremities / Skeleton Arms. Right arm. Right hand. Left arm. Left hand. Legs. Right leg. Right foot. Left leg. Left foot. The following structures could not be adequately visualized: Heart / Thorax 4-chamber view. Aortic arch view. sex: female. MATERNAL STRUCTURES ----- Cervix Visualized Appearance: Appears Closed Approach - Transvaginal: Cervical length 39.7 mm Right Ovary Not visualized Left Ovary Visualized RECOMMENDATION ----- Thank-you for referring your patient for a comprehensive ultrasound. I discussed the findings on today's ultrasound with the patient. I reviewed the limitations of ultrasound both in detecting aneuploidy and structural abnormalities. Ultrasound can routinely detect 80-90% of structural abnormalities. She had low risk cell free DNA for genetic screening this . echocardiogram is recommended due to IVF ; will follow up suboptimal cardiac views at that time. We reviewed today's ultrasound or a marginal venous sinus placenta previa. We discussed how this differs from the classic definition of placenta previa, and that a marginal sinus placenta previa may be a mild type of placenta previa. Nevertheless, we discussed that we often clinically consider this to be similar to a placenta previa. We discussed that the majority of placenta previas will resolve prior to delivery. We recommended pelvic rest but would not recommend bedrest. We discussed that a repeat ultrasound is recommended at the time of echocardiogram with [facility] to re-assess placental location. She has 2 prior D&C but otherwise no history of uterine scar. Finally, I reviewed bleeding precautions. She denies recent vaginal bleeding. Return to primary provider for continued care. If you have questions regarding today's evaluation or if we can be of further service, please contact the [facility]. anomalies may be present but not detected I spent a total of 15 minutes (excluding the ultrasound interpretation) on the date of this encounter including preparing to see the patient (reviewing medical records/tests), in direct dqgl-os-whje contact with the patient counseling and discussing the plan of care, documenting the visit in the electronic medical record, and communicating with other health child care centre director and/or care coordination. Procedure Note Valentine Grant MD - 06/09/2024 Comprehensive ----- Pat. Name: ANGELIKA BA Study Date: 06/09/2024 2:01pm Pat. NO: [id number] Referring MD: ZOEY GRIFFIN Site: Rescue Instructor: Maryann Grimes RDMS : 1985 Age: 38 ----- INDICATION ----- AMA IVF METHOD ----- Transabdominal and transvaginal ultrasound approaches were used.(Transvaginal ultrasound examination was required to adequately completethe exam.). View: Suboptimal view: limited by position. ----- Cannon . Number of fetuses: 1 DATING ----- DateDetailsGest. age ANNIA ConceptionConception: IVF Embryo transfer 02/21/2024 IVF / ET:5 d18 w + 2 d 11/08/2024 Previous U/S 03/31/2024 GA, GA8 w + 4 d18 w + 4 d 11/06/2024 U/S 5based upon AC, BPD, Femur, HC18 w + 5 d 11/05/2024 Assigned dating based on the IVF / ET date, selected on06/09/2024 18w + 2 d 11/08/2024 GENERAL EVALUATION ----- Cardiac activity present. FHR 148 bpm. movements: present.Presentation: cephalic Placenta: Anterior, venous sinus previa. Umbilical cord: 3 vessel cord Amniotic fluid: Amount of AF: normal. MVP 5.7 cm BIOMETRY ----- BPD 41.8mm 18w 5dHadlock OFD 55.8mm 18w 3dNicolaides HC 156.4mm 18w 4dHadlock Cerebellum tr 18.7mm 18w 2dNicolaides Nuchal fold 2.8mm AC 131.7mm 18w 5d 61%Hadlock Femur 28.3mm 18w 5dHadlock Humerus 27.6mm 18w 6dJeanty Weight Calculation: EFW 251g 67%Hadlock EFW (lb,oz) 0 lb 9oz EFW by Hadlock([id number]) Head / Face / Neck Biometry: Child Care Centre Director 6.0mm CM 3.3mm Nasal bone 5.7mm ANATOMY ----- The following structures appear normal: Head / Neck Cranium. Head size. Head shape.Lateral ventricles. Choroid plexus. Midline falx. Cavum septi pellucidi.Cerebellum. Cisterna magna. Parenchyma. Thalami. Vermis. Neck. Nuchal fold. Face Lips. Profile. Nose. Maxilla.Mandible. Orbits. Lens. Heart / Thorax RVOT view. LVOT view. 3-vessel view.1-svxkgt-eqcdrop view. Situs. Bicaval view. Ductal arch view. Superiorvena cava. Inferior vena cava. Cardiac position. Cardiac size.Cardiac rhythm. Right lung. Left lung.Diaphragm. Abdomen Abdom. wall. Cord insertion. Stomach.Kidneys. Bladder. Liver. Bowel. Genitals. Spine Cervical spine. Thoracic spine.Lumbar spine. Sacral spine. Extremities / Skeleton Arms. Right arm. Right hand. Left arm.Left hand. Legs. Right leg. Right foot. Left leg. Left foot. The following structures could not be adequately visualized: Heart / Thorax 4-chamber view. Aortic arch view. sex: female. MATERNAL STRUCTURES ----- Cervix Visualized Appearance: Appears Closed Approach - Transvaginal:Cervical length 39.7 mm Right Ovary Not visualized Left Ovary Visualized RECOMMENDATION ----- Thank-you for referring your patient for a comprehensive ultrasound. I discussed the findings on today's ultrasound with the patient. Ireviewed the limitations of ultrasound both in detecting aneuploidy andstructural abnormalities. Ultrasound can routinely detect 80-90% of structural abnormalities. She had low riskcell free DNA for genetic screening this . echocardiogram is recommended due to IVF ; will follow upsuboptimal cardiac views at that time. We reviewed today's ultrasound or a marginal venous sinus placenta previa.We discussed how this differs from the classic definition of placentaprevia, and that a marginal sinus placenta previa may be a mild type of placenta previa.Nevertheless, we discussed that we often clinically consider this to besimilar to a placenta previa. We discussed that the majority of placenta previas will resolve prior todelivery. We recommended pelvic rest but would not recommend bedrest. Wediscussed that a repeat ultrasound is recommended at the time of echocardiogram withFM to re-assess placental location. She has 2 prior D&C but otherwise nohistory of uterine scar. Finally, I reviewed bleeding precautions. She denies recent vaginalbleeding. Return to primary provider for continued care. If you have questions regarding today's evaluation or if we can be offurther service, please contact the [facility]. anomalies may be present but not detected I spent a total of 15 minutes (excluding the ultrasound interpretation) onthe date of this encounter including preparing to see the patient(reviewing medical records/tests), in direct euae-zn-ghlw contact with the patient counseling and discussingthe plan of care, documenting the visit in the electronic medical record,and communicating with other health child care centre director and/or care coordination. IMPRESSION ----- 1. Acnnon at 18w 2d gestational age. 2. No anomalies commonly detected by ultrasound were identified inthe detailed anatomic survey within the limits of prenatalultrasound, however some cardiac views were suboptimal, as described above. 3. Growth parameters and estimated weight were consistent withgestational age predicted by assigned ANNIA. 4. The amniotic fluid volume appeared normal. 5. On transvaginal imaging the cervix appeared long and closed. The is amarginal venous sinus placenta previa. us Zoey Griffin MD IMG [facility] US ORDERABLES Ed ited Result - Final * (ABNORMAL) Comprehensive metabolic panel (05/28/2020 11:36 AM CDT) Sodium 142 133 - 144 mmol/L 05/28/2020 12:18 PM T [facility] Potassium 3.4 3.4 - 5.3 mmol/L 05/28/2020 12:18 PM [facility] Chloride 112(H) 94 - 109 mmol/L 05/28/2020 12:18 PM [facility] Carbon Dioxide 23 20 - 32 mmol/L 05/28/2020 12:25 PM [facility] Anion Gap 7 3 - 14 mmol/L 05/28/2020 12:25 PM [facility] Glucose 92 70 - 99 mg/dL 05/28/2020 12:25 PM [facility] Urea Nitrogen 4(L) 7 - 30 mg/dL 05/28/2020 12:25 PM [facility] Creatinine 0.48(L) 0.52 - 1.04 mg/dL 05/28/2020 12:25 PM [facility] GFR Estimate >90 >60 mL/min/{1 .73_m2} 05/28/2020 12:25 PM [facility] Comment: Non GFR Calc Starting 02/19/2018, serum creatinine based estimated GFR (eGFR) will be calculated using the Chronic Kidney Disease Epidemiology Collaboration (CKD-EPI) equation. GFR Estimate If Black >90 >60 mL/min/{1 .73_m2} 05/28/2020 12:25 PM [facility] Comment: GFR Calc Starting 02/19/2018, serum creatinine based estimated GFR (eGFR) will be calculated using the Chronic Kidney Disease Epidemiology Collaboration (CKD-EPI) equation. Calcium 8.9 8.5 - 10.1 mg/dL 05/28/2020 12:25 PM CDT [facility] Bilirubin Total 0.4 0.2 - 1.3 mg/dL 05/28/2020 12:28 PM CDT [facility] Albumin 3.8 3.4 - 5.0 g/dL 05/28/2020 12:28 PM CDT [facility] Protein Total 6.8 6.8 - 8.8 g/dL 05/28/2020 12:28 PM CDT [facility] Alkaline Phosphatase 42 40 - 150 U/L 05/28/2020 12:28 PM T [facility] ALT 33 0 - 50 U/L 05/28/2020 12:28 PM T [facility] AST 15 0 - 45 U/L 05/28/2020 12:28 PM T [facility] Blood specimen (specimen) 05/28/2020 11:36 AM CDT 05/28/2020 12:01 PM CDT Mindy Rubio MD LAB - BLOOD ORDERABLES F inal Result [facility] [address] [place] [id number], [facility] [phone] from Last 3 Months or Most Recently Relevant to Health Maintenance Insurance [facility] OUT OF STATE Care Teams Pick Remover Relationship Specialty Start Date End Date Dana Alvarez DO PCP - General Family Medicine 05/28/20
--- OUTSIDE RECORDS SUMMARY | 2024-06-23 19:02 | XMS_ITS | Encounter Summary ---
Author Organization [facility] Address [address] [place] [address] Care Team Providers Care Sewing Inspector Name Role Phone [place] Alvarezke Yang Primary Care Provider [phone] Encounter Details Date Type Department Care Team (Latest Contact Info) Description 06/09/2024 Travel Social History Tobacco Use Types Packs/Day [...] Info) Description 06/30/2024 9:30 AM CDT Appointment [facility] [address] [facility] [address] [place] [phone] Zoey Mustafa MD [facility] [address] [place] [address] Valentine Grant MD [address] [place] [phone] 06/30/2024 10:00 AM CDT Office Visit [facility] [address] [facility] [address] [place] [address] Zoey Mustafa MD [facility] [address] [place] [address] Valentine Grant MD [address] [place] [address] 06/30/2024 10:15 AM CDT Appointment [facility] [address] [facility] [address] [place] [address] Valentine Grant MD [address] [place] [address] documented as of this encounter Visit Diagnoses Not on filedocumented in this encounter Care Teams Sewing Inspector Relationship Specialty Start Date End Date Dana Alvarez DO PCP - General Family Medicine 05/28/20 documented as of this encounter
--- OUTSIDE RECORDS SUMMARY | 2024-06-23 19:02 | XMS_ITS | Encounter Summary ---
Author Organization [place] Address [address] [place] [address] Care Team Providers Care Clinical Writer Name Role Phone Dana Alvarez DO Primary Care Provider [phone] Reason for Visit * Reason Comments Genetic Counseling AMA, IVF Ultrasound L2- AMA, IVF Encounter Details Date Type Department Care Team (Late st Contact Info) Description 06/02/[address] [facility] Maternal Medicine [facility] [address] [facility] [address] [place] [address] Sunshine Agustin RN Genetic Counseling (AMA, IVF); Ultrasound (L2- AMA, IVF) Social History Tobacco Use Types Packs/Day Years [...] Info) Description 06/30/2024 9:[address] [facility] Maternal Medicine [facility] [address] [place] [address] Zoey Mustafa MD [facility] [address] [place] [address] Valentine Grant MD [address] [place] [address] 06/30/2024 10:00 AM CDT Office Visit [facility] Medicine [place] [address] [facility] [address] [place] [phone] Zoey Mustafa MD [address] [address] Valentine Grant MD [address] [place] [address] 06/30/2024 10:15 AM CDT Appointment [facility] Medicine [place] [address] [facility] [address] [place] [phone] Valentine Grant MD [address] [place] [address] documented as of this encounter Visit Diagnoses Not on filedocumented in this encounter Care Teams Clinical Writer Relationship Specialty Start Date End Date Dana Alvarez DO PCP - General Family Medicine 05/28/20 documented as of this encounter
--- OUTSIDE RECORDS SUMMARY | 2024-06-23 19:02 | XMS_ITS | Encounter Summary ---
Author Organization [facility] Address [address] [place] [address] Care Team Providers Care [employer] Inspector Name Role Phone Elsewhere, Pcp Primary Care Provider Unavailabl e Encounter Details Date Type Department Care Team (Late st Contact Info) Description 06/20/[address] [facility] [place] [address] [facility] [address] [place] [address] Alyssa Val[place] Social History Tobacco Use Types Packs/Day Years [...] How often do you attend chur or buddhism services? Never 06/19/2022 Do you belong to any clubs o r organizations such as presybeterian groups, unions, fraternal or athletic groups, or [...] Answer Date Recorded PHQ-2 Score 0 08/[facility]/2022 [facility] Questionnaire Answer Date [...] place to sleep or slept in a residential (including now)? No 06/19/2022 Depression Answer Date [...] Sex Assigned at Female 02/06/2017 1:39 PM SPECIAL AGENT Legal Sex Female 9:30 AM SPECIAL AGENT Gender Identity Female 02/06/2017 1:39 PM SPECIAL AGENT Sexual Orientation Straight 02/06/2017 1: 39 PM SPECIAL AGENT documented as of this encounter Plan of Treatment Upcoming Encounters Date Type Department Care Team (Latest Contact Info) Description 07/18/2024 10:45 AM CDT Clinical Communication Virtual Review in [place], [place] [address] [place] [address] 07/22/2024 2:00 PM CDT Appointment Department of Laboratory Medicine and Pathology, [facility], in [place], [place] [address] [place] [phone] Ayala Roth APRN, C.N.P. [address] [place] [phone] 07/22/2024 3:30 PM CDT Office Visit Division of Rheumatology in [address] [phone] Ayala Roth APRN, C.N.P. [address] [place] [phone] documented as of this encounter Visit Diagnoses Not on filedocumented in this encounter Additional Health Concerns Assessment Noted Time PHQ-9 Depression Total Score: 4 08/16/19 23 9:00 AM CDT documented as of this encounter Care Teams [employer] Inspector Relationship Specialty Start Date End Date Elsewhere, Pcp PCP - General Internal Medicine 03/23/23 documented as of this encounter
--- OUTSIDE RECORDS SUMMARY | 2024-06-23 19:02 | XMS_ITS | Encounter Summary ---
Author Organization [facility] Address [address] [place] [id number] Care Team Providers Care Property Management Accountant Name Role Phone Dana Alvarez DO Primary Care Provider Reason for Referral * Diagnostic Imaging Ultrasound (Routine) - Pending Review Specialty Diagnoses / Procedures Referred By Solac t Referred To Contact Radiology. Diagnoses related condition, antepartum Procedures [facility] US Comprehensive Single Felisa Mustafa MD [facility] [address] [place] [address] Phone: tel: fax: Referral ID Status Reason Start Date Expiration Date V isits Requested Visits Authorized [id number] Pending Review 04/29/2024 04/29/2025 1 1 Reason for Visit * Diagnostic Imaging Ultrasound (Routine) - Pending Review Specialty Diagnoses / Procedures Referred By Contac t Referred To Contact Radiology. Diagnoses related condition, antepartum Procedures [facility] US Comprehensive Single Felisa Mustafa MD [facility] [address] [place] [address] Phone: tel: fax: Referral ID Status Reason Start Date Expiration Date V isits Requested Visits Authorized [id number] Pending Review 04/29/2024 04/29/2025 1 1 Encounter Details Date Type Department Care Team (Latest Contact Info) Description 06/09/2024 1:54 PM CDT - 06/09/2024 11:59 PM CDT Hospital Encounter [facility] [place] [address] [facility] [address] [place] [phone] Felisa Mustafa MD [facility] [address] [place] [address] Valentine Grant MD [address] [place] [phone] related condition, antepartum Discharge Disposition: Home or Self Care Social [...] Info) Description 06/30/2024 9:30 AM CDT Appointment [facility] [place] [address] [facility] [address] [place] [phone] Felisa Mustafa MD [facility] [address] [place] [address] Valentine Grant MD [address] [place] [phone] 06/30/2024 10:00 AM CDT Office Visit [facility] [place] [address] [facility] [address] [place] [phone] Felisa Mustafa MD [facility] [address] [place] [address] Valentine Grant MD [address] [place] [address] 06/30/2024 10:15 AM CDT Appointment [facility] [place] [address] [facility] [address] [place] [phone] Valentine Grant MD [address] [place], [place] [phone] documented as of this encounter Procedures Procedure Name Priority Date/Time Associated Diagnosis Comments [facility] US COMPREHENSIVE SINGLE Routine 06/09/2024 3:03 PM CDT related condition, antepartum documented in this encounter Results * [facility] US Comprehensive Single (06/09/2024 3:03 PM [...] BA Study Date: 06/09/2024 2:01pm Pat. NO: [id number] Referring MD: FELISA GRIFFIN Site: Helper/Driver: Maryann Grimes RDMS : 1985 Age: 38 [...] 0 lb 9 oz EFW by Hadlock ([id number]) Head / Face / Neck Biometry: Package Dye Stand Loader 6.0 mm CM 3.3 mm Nasal bone 5.7 mm ANATOMY ----- The following structures appear normal: Head / Neck Cranium. Head size. Head shape. Lateral ventricles. Choroid plexus. Midline falx. Cavum septi pellucidi. Cerebellum. Cisterna magna. Parenchyma. Thalami. Vermis. Neck. Nuchal fold. Face Lips. Profile. Nose. Maxilla. Mandible. Orbits. Lens. Heart / Thorax RVOT view. LVOT view. 3-vessel view. 0-aeuoka-yjqfphs view. Situs. Bicaval view. Ductal arch view. [...] recommended at the time of echocardiogram with MFM to re-assess placental location. She has 2 [...] the patient (reviewing medical records/tests), in direct ubae-od-fvgl contact with the patient counseling and discussing the plan of care, documenting the visit in the electronic medical record, and communicating with other health memory care director and/or care coordination. Procedure Note Valentine Grant MD - 06/09/2024 Comprehensive ----- Pat. Name: ANGELIKA BA Study Date: 06/09/2024 2:01pm Pat. NO: [id number] Referring MD: FELISA GRIFFIN Site: Helper/Driver: Maryann Grimes RDMS : 1985 Age: 38 [...] EFW (lb,oz) 0 lb 9oz EFW by Hadlock([id number]) Head / Face / Neck Biometry: Package Dye Stand Loader 6.0mm CM 3.3mm Nasal bone 5.7mm ANATOMY ----- The following structures appear normal: Head / Neck Cranium. Head size. Head shape.Lateral ventricles. Choroid plexus. Midline falx. Cavum septi pellucidi.Cerebellum. Cisterna magna. Parenchyma. Thalami. Vermis. Neck. Nuchal fold. Face Lips. Profile. Nose. Maxilla.Mandible. Orbits. Lens. Heart / Thorax RVOT view. LVOT view. 3-vessel view.5-dfzxxj-eavbcjj view. Situs. Bicaval view. Ductal arch view. [...] is [facility] the [facility]. She has [...] see the patient(reviewing medical records/tests), in direct mcaa-bz-lope contact with the patient counseling and discussingthe plan of care, documenting the visit in the electronic medical record,and communicating with other health memory care director and/or care coordination. IMPRESSION ----- 1. Cannon at 18w 2d [...] is amarginal venous sinus placenta previa. us [facility]isa [facility] Ed ited Result - Final documented in this encounter Visit Diagnoses Diagnosis related condition, antepartum documented in this encounter Care Teams Property Management Accountant Relationship Specialty Start Date End Date Dana Alvarez DO PCP - General Family Medicine 05/28/20 documented as of this encounter
[2024-06-23 19:16] VITALS: BP 119/74; PULSE 76; RESP 16; TEMP 36.3; O2SAT 98; BMI 30.4
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
--- OUTSIDE RECORDS SUMMARY | 2024-06-23 19:52 | XMS_ITS | Clinical Summary ---
Author Organization [facility] Address [address] [place] [address] Care Team Providers Care Assembly And Packing Supervisor Name Role Phone Elsewhere, Pcp Primary Care Provider Unavailabl e Source Comments Patient records contain information from all sites at [facility]. For routine questions regarding patient records, call [phone] during business hours, M-F 8:00 AM - 5:00 PM Central Time. Record requests for emergency care only can be directed to [phone] at any time.[facility] Allergies Active Allergy Reactions Criticality Noted Date [...] VITAMIN ORAL) Take by mouth. Active rizatriptan OIL DISPENSER (MAXALT-OIL DISPENSER) 10 mg disintegrating tablet Take 1 tablet [...] Department Care Team Description 06/20/2024 Orders Only [facility] [place] [address] [place] [address] Leonard Alyssa R 06/18/2024 Clinical Communication Pharmacy Prior Auth RO [id number] Evelia Townsend Rx Prior Authorization (ADALIMUMAB ADAZ) 04/29/2024 3:30 PM ANGLEDOZER OPERATOR Office Visit Division of Rheumatology in [place], [place] [address] [place] [phone] Ayala Roth APRN, C.N.P. Spondylitis Ankylosing (HCC) (Primary Dx) 04/29/2024 1:49 PM ANGLEDOZER OPERATOR - 04/29/2024 11:59 PM ANGLEDOZER OPERATOR Hospital Encounter Department of Laboratory Medicine and Pathology, [facility], in [place], [place] [address] [place] [phone] Ayala Roth APRN, C.N.P. Spondylitis Ankylosing (HCC) Discharge Disposition: Home or Self Care 04/23/2024 Clinical Communication Division of Rheumatology in [address] [phone] Ayala Roth APRN, C.N.P. 04/18/2024 2:45 PM ANGLEDOZER OPERATOR Clinical Communication Virtual Review in [place], [place] [address] [place] [phone] Pre-visit Intake from Last 3 Months Immunizations [...] How often do you attend chur or denominational services? Never 06/19/2022 Do you belong to [...] Answer Date Recorded PHQ-2 Score 0 08/15/2022 [facility] of Occupat ional Health - Occupational [...] place to sleep or slept in a correction (including now)? No 06/19/2022 Depression Answer Date [...] Sex Assigned at Female 02/06/2017 1:39 PM ANGLEDOZER OPERATOR Legal Sex Female 9:30 AM ANGLEDOZER OPERATOR Gender Identity Female 02/06/2017 1:39 PM ANGLEDOZER OPERATOR Sexual Orientation Straight 02/06/2017 1: 39 PM ANGLEDOZER OPERATOR Last Filed Vital Signs Vital Sign Reading Time Taken Comments Blood Pressure 119/83 03/27/2023 2:40 PM ANGLEDOZER OPERATOR Pulse 96 03/27/2023 2:40 PM ANGLEDOZER OPERATOR Temperature 36.7 C (98.1 F) 03/27/2023 2:40 PM ANGLEDOZER OPERATOR Respiratory Rate 16 09/14/2017 11:3 0 AM CDT Oxygen Saturation 99% 04/28/2019 9:29 AM ANGLEDOZER OPERATOR Inhaled Oxygen Concentration - - Weight 85.2 kg (187 lb 13.3 oz) 03/27/2023 2:40 PM ANGLEDOZER OPERATOR Height 164.4 cm (5' 4.72) 03/27/2023 2:40 PM CS T Body Mass Index 31.52 03/27/2023 2:40 PM ANGLEDOZER OPERATOR Plan of Treatment Upcoming Encounters Date Type Department Care Team (Latest Contact Info) Description 07/18/2024 10:45 AM CDT Clinical Communication Virtual Review in [place], [place] [address] [place] [address] 07/22/2024 2:00 PM CDT Appointment Department of Laboratory Medicine and Pathology, [facility], in [place], [place] [address] [place] [phone] Ayala Roth APRN, C.N.P. [address] [place] [phone] 07/22/2024 3:30 PM CDT Office Visit Division of Rheumatology in [place], [place] [address] [place] [phone] Ayala Roth APRN, C.N.P. [address] [place] [phone] Health Maintenance Due Date Last Done Comments [...] Required) Completed Medical Devices Implanted Type Area Securities Counselor Device Identifier Shelf Expiration Date Model / Serial / Lot Hardware E.G. Pins/Screws/Wale s Hardware e.g. pins/screws/wale s Left: Wrist Intrauterine Device Intrauterine Device Cervix Procedures Procedure Name Priority Date/Time Associated Diagnosis Comments CREATININE WITH EGFR, S/P Routine 04/29/2024 2:00 PM ANGLEDOZER OPERATOR Spondylitis Ankylosing (HCC) ASPARTATE AMINOTRANSFERASE (AST), S/P Routine 04/29/2024 2:00 PM ANGLEDOZER OPERATOR Spondylitis Ankylosing (HCC) CBC WITH DIFFERENTIAL, B Routine 025 2:00 PM ANGLEDOZER OPERATOR Spondylitis Ankylosing (HCC) SEDIMENTATION RATE, B Routine 04/29/2024 2:00 PM ANGLEDOZER OPERATOR Spondylitis Ankylosing (HCC) C-REACTIVE PROTEIN (CRP), S/P Routine 04/29/2024 2:00 PM ANGLEDOZER OPERATOR Spondylitis Ankylosing (HCC) THINPREP W/HPV CO-TEST SCREEN Routine 11/28/2019 1:49 PM CDT Pap Smear Examination HIV-1/-2 AG AND AB SCREEN Routine 10/03/2013 7:09 AM CDT LIPID PANEL, S Routine 10/03/2013 7:09 AM CDT from Last 3 Months or Most Recently Relevant to Health Maintenance Results * Sedimentation Rate (04/29/2024 2:00 PM ANGLEDOZER OPERATOR) Pathologist [facility] Sedimentation Rate, B 14 2 - 20 mm/h 04/29/2024 6:13 PM ANGLEDOZER OPERATOR DTL Blood (Blood, Venous) 04/29/2024 2:00 PM ANGLEDOZER OPERATOR 04/29/2024 2:27 PM ANGLEDOZER OPERATOR Ayala Roth APRN, C.N.P. LAB BLOOD ADD-ON F inal Result [place] [address] [place] [address], [facility] [address] [place] [address] * (ABNORMAL) CBC with Differential, Blood (04/29/2024 2:00 PM ANGLEDOZER OPERATOR) Hemoglobin 11.6 11.6 - 15.0 g/dL 04/29/2024 2:37 PM ANGLEDOZER OPERATOR DTL Hematocrit 35.4(L) 35.5 - 44.9 % 04/29/2024 2:37 PM ANGLEDOZER OPERATOR DTL Erythrocytes 3.76(L) 3.92 - 5.13 x10(12)/L 04/29/2024 2:37 PM ANGLEDOZER OPERATOR DTL MCV 94.1 78.2 - 97.9 fL 04/29/2024 2:37 PM ANGLEDOZER OPERATOR DTL RBC Distrib Width 12.2 12.2 - 16.1 % 04/29/2024 2:37 PM ANGLEDOZER OPERATOR DTL Platelet Count 354 157 - 371 x10(9)/L 04/29/2024 2:37 PM ANGLEDOZER OPERATOR DTL Leukocytes 10.6(H) 3.4 - 9.6 x10(9)/L 04/29/2024 2:37 PM ANGLEDOZER OPERATOR DTL Neutrophils 6.71(H) 1.56 - 6.45 x10(9)/L 04/29/2024 2:37 PM ANGLEDOZER OPERATOR DHPM Lymphocytes 2.95 0.95 - 3.07 x10(9)/L 04/29/2024 2:37 PM ANGLEDOZER OPERATOR DTL Monocytes 0.78 0.26 - 0.81 x10(9)/L 04/29/2024 2:37 PM ANGLEDOZER OPERATOR DTL Eosinophils 0.11 0.03 - 0.48 x10(9)/L 04/29/2024 2:37 PM ANGLEDOZER OPERATOR DTL Basophils 0.03 0.01 - 0.08 x10(9)/L 04/29/2024 2:37 PM ANGLEDOZER OPERATOR DTL Blood (Blood, Venous) 04/29/2024 2:00 PM ANGLEDOZER OPERATOR 04/29/2024 2:27 PM ANGLEDOZER OPERATOR Ayala Roth APRN, C.N.P. LAB BLOOD ADD-ON F inal Result [facility] [address] [place] [address], [facility] DTL [facility] [address] [place] [address] DHPM [facility] [address] [place] [address] * CRP (C-Reactive Protein) (04/29/2024 2:00 PM ANGLEDOZER OPERATOR) Pathologist [facility] C-Reactive Protein (CRP), S 4.9 <5.0 mg/L 04/29/2024 3:04 PM ANGLEDOZER OPERATOR DTL Blood (Blood, Venous) 04/29/2024 2:00 PM ANGLEDOZER OPERATOR 04/29/2024 2:37 PM ANGLEDOZER OPERATOR Ayala Roth APRN, C.N.P. LAB BLOOD ADD-ON F inal Result [facility] [address] [place] [address], [facility] [address] [place] [address] * AST (Aspartate Aminotransferase) (04/29/2024 2:00 PM ANGLEDOZER OPERATOR) Aspartate Aminotransferase (AST), S 19 8 - 43 U/L 04/29/2024 3:04 PM ANGLEDOZER OPERATOR DTL Blood (Blood, Venous) 04/29/2024 2:00 PM ANGLEDOZER OPERATOR 04/29/2024 2:37 PM ANGLEDOZER OPERATOR Ayala Roth APRN, C.N.P. LAB BLOOD ADD-ON F inal Result Performing Organization Address [facility] Co de Phone Number [facility] [address] [place] [address], [facility] [address] [place] [address] * (ABNORMAL) Creatinine with Estimated GFR (04/29/2024 2:00 PM ANGLEDOZER OPERATOR) Creatinine 0.50(L) 0.59 - 1.04 mg/dL 04/29/2024 3:04 PM ANGLEDOZER OPERATOR DTL Estimated GFR (eGFR) >90 >=60 mL/min/BSA 04/29/2024 3:04 PM ANGLEDOZER OPERATOR DTL Comment: Estimated GFR calculated using the 2020 CKD_EPI creatinine equation. Blood (Blood, Venous) 04/29/2024 2:00 PM ANGLEDOZER OPERATOR 04/29/2024 2:37 PM ANGLEDOZER OPERATOR Ayala Roth APRN, C.N.P. LAB BLOOD ADD-ON F inal Result [facility] [address] [place] [address], [facility] [address] [place] [address] * ThinPrep w/HPV Co-Test Screen (11/28/2019 1:49 PM CDT) 12/03/2019 12:39 PM CDT ECLR Disclaimer High risk HPV testing, Real-Time Polymerase Chain Reaction (PCR) was performed on the liquid-based cytology specimen at [facility], [place], [place]. 12/03/2019 12:39 PM CDT ECLR Report [...] LAB PAP PATHDX ORDERABLE S Final Result [facility] [address] [place] [address], [facility] ECLR [facility] in [address] [address] * Lipid Panel (10/03/2013 7:09 AM CDT) Cholesterol, Total 196 <=200 MGDL POWERCHART Comment: ADULTS: Desirable: < 200 mg/dL Increased Risk: 200-240 mg/dL High Risk: > 240 mg/dL PEDIATRIC: National Heart, Lung, [facility] [place] Cholesterol Guidelines for Pediatrics and Adolescents: Acceptable: [...] mg/dL PEDIATRIC: National Heart, Lung, and Blood [place] LDL Guidelines for Pediatrics and Adolescents: Acceptable: < 110 mg/dL Borderline: 110-129 mg/dL High: >129 mg/dL Total Cholesterol/HDL Ratio 4 POWERCHART HXLDL/HDL 2 POWERCHART Blood 10/03/2013 7:09 AM CDT Destinee Rome M.D. LAB BLOOD ADD-ON Final Result POWERCHART * HIV-1/-2 Ag and Ab Screen (10/03/2013 7:09 AM CDT) Pathologist [facility] HIV-1/-2 Antibody Negative Negative POWERCHART Comment: Negative result does not rule out HIV infection. If acute HIV infection is suspected in a high-risk individual, submit plasma specimen for HIV-1 RNA quantification test (HIVQU) and/or HIV-2 DNA/RNA test (FHV2Q). Test Performed by: [place] [address] Mobile Battery Technician: Shimon Hartmann III, M.D. Blood 10/03/2013 7:09 AM CDT Destinee Rome M.D. LAB MICROBIOLOGY - BLOOD ORDER SARA Final Result POWERCHART from Last 3 Months or Most Recently Relevant to Health Maintenance Insurance [facility] Advance Directives For more information, please contact: [phone] * Full Code (Latest Code Status on File) Date Activated Date Inactivated Comments 02/01/2017 12:00 PM 02/01/2017 2:51 PM Question Answer Comments Full Code: Discussed * Full Code Date Activated Date Inactivated Comments 02/01/2017 10:01 AM 02/01/2017 12:00 PM Question Answer Comments Full Code: Discussed Care Teams Assembly And Packing Supervisor Relationship Specialty Start Date End Date Elsewhere, Pcp PCP - General Internal Medicine 03/23/23
--- OUTSIDE RECORDS SUMMARY | 2024-06-23 19:52 | XMS_ITS | Encounter Summary ---
Author Organization [facility] Address [address] [place] [address] Care Team Providers Care Head Of Precision Targeting Name Role Phone Dana Alvarez DO Primary Care Provider [phone] Reason for Referral * Diagnostic Imaging Ultrasound (Routine) - Pending Review Specialty Diagnoses / Procedures Referred By Solac t Referred To Contact Radiology. Diagnoses related condition, antepartum Procedures [facility] US Comprehensive Single Felisa Mustafa MD [facility] [address] [place] [address] Phone: tel: fax: Referral ID Status Reason Start Date Expiration Date V isits Requested Visits Authorized [id number] Pending Review 04/29/2024 04/29/2025 1 1 Reason for Visit * Diagnostic Imaging Ultrasound (Routine) - Pending Review Specialty Diagnoses / Procedures Referred By Contac t Referred To Contact Radiology. Diagnoses related condition, antepartum Procedures [facility] US Comprehensive Single Felisa Mustafa MD [facility] [address] [place] [address] Phone: tel: fax: Referral ID Status Reason Start Date Expiration Date V isits Requested Visits Authorized [id number] Pending Review 04/29/2024 04/29/2025 1 1 Encounter Details Date Type Department Care Team (Latest Contact Info) Description 06/09/2024 1:54 PM CDT - 06/09/2024 11:59 PM CDT Hospital Encounter [facility] Maternal Medicine Center [place] [address] [address] [facility] [address] [place] [phone] Felisa Mustafa MD [facility] [address] [place] [address] Valentine Grant MD [address] [place] [phone] related condition, antepartum Discharge Disposition: Home or [...] Info) Description 06/30/2024 9:30 AM CDT Appointment [facility] Maternal Medicine [place] [address] [address] [facility] [address] [place] [phone] Felisa Mustafa MD [facility] [address] [place] [address] Valentine Grant MD [address] [place] [address] 06/30/2024 10:00 AM CDT Office Visit [facility] Maternal [facility] [place] [address] [address] [facility] [address] [place] [phone] Felisa Mustafa MD [facility] [address] [place] [address] Valentine Grant MD [address] [place] [address] 06/30/2024 10:15 AM CDT Appointment [facility] [place] [address] [facility] [address] [place] [address] Valentine Grant MD [address] [place], [place] [address] documented as of this encounter Procedures Procedure Name Priority Date/Time Associated Diagnosis Comments [facility] US COMPREHENSIVE SINGLE Routine 06/09/2024 3:03 PM CDT related condition, antepartum documented in this encounter Results * [facility] US Comprehensive Single (06/09/2024 3:03 PM [...] BA Study Date: 06/09/2024 2:01pm Pat. NO: [id number] Referring MD: FELISA GRIFFIN Site: Deputy Insurance Commissioner: Maryann Grimes RDMS : 1985 Age: 38 [...] 0 lb 9 oz EFW by Hadlock ([id number]) Head / Face / Neck Biometry: Educational Aide 6.0 mm CM 3.3 mm Nasal bone 5.7 mm ANATOMY ----- The following structures appear normal: Head / Neck Cranium. Head size. Head shape. Lateral ventricles. Choroid plexus. Midline falx. Cavum septi pellucidi. Cerebellum. Cisterna magna. Parenchyma. Thalami. Vermis. Neck. Nuchal fold. Face Lips. Profile. Nose. Maxilla. Mandible. Orbits. Lens. Heart / Thorax RVOT view. LVOT view. 3-vessel view. 7-jdwudv-pktlmfc view. Situs. Bicaval view. Ductal arch view. [...] the patient (reviewing medical records/tests), in direct kxse-ge-nlyd contact with the patient counseling and discussing the plan of care, documenting the visit in the electronic medical record, and communicating with other health home health care physician and/or care coordination. Procedure Note Valentine Grant MD - 06/09/2024 Comprehensive ----- Pat. Name: ANGELIKA BA Study Date: 06/09/2024 2:01pm Pat. NO: [id number] Referring MD: FELISA GRIFFIN Site: Deputy Insurance Commissioner: Maryann Grimes RDMS : 1985 Age: 38 [...] EFW (lb,oz) 0 lb 9oz EFW by Hadlock([id number]) Head / Face / Neck Biometry: Educational Aide 6.0mm CM 3.3mm Nasal bone 5.7mm ANATOMY ----- The following structures appear normal: Head / Neck Cranium. Head size. Head shape.Lateral ventricles. Choroid plexus. Midline falx. Cavum septi pellucidi.Cerebellum. Cisterna magna. Parenchyma. Thalami. Vermis. Neck. Nuchal fold. Face Lips. Profile. Nose. Maxilla.Mandible. Orbits. Lens. Heart / Thorax RVOT view. LVOT view. 3-vessel view.9-slrmon-olsdgsz view. Situs. Bicaval view. Ductal arch view. [...] [facility]. She has [...] see the patient(reviewing medical records/tests), in direct atvb-lm-fxmy contact with the patient counseling and discussingthe plan of care, documenting the visit in the electronic medical record,and communicating with other health home health care physician and/or care coordination. IMPRESSION ----- 1. Cannon [...] sinus placenta previa. us Felisa Griffin MD [facility] US ORDERABLES Ed ited Result - Final documented in this encounter Visit Diagnoses Diagnosis related condition, antepartum documented in this encounter Care Teams Head Of Precision Targeting Relationship Specialty Start Date End Date Dana Alvarez DO PCP - General Family Medicine 05/28/20 documented as of this encounter
--- OUTSIDE RECORDS SUMMARY | 2024-06-23 19:52 | XMS_ITS | Encounter Summary ---
Author Organization [facility] Address [address] [place] [address] Care Team Providers Care Store Hand Name Role Phone Elsewhere, Pcp Primary Care Provider Unavailabl e Reason for Visit * Reason Onset Date Comments Rx Prior Authorization 06/18/2024 CHEMA VELEZ Encounter Details Date Type Department Care Team (Latest Contact Info) Description 06/18/2024 Clinical Communication Pharmacy Prior Auth RO [id number] Evelia Townsend Rx Prior Authorization (ADALIMUMAB ADAZ) [...] How often do you attend chur or gnosticist services? Never 06/19/2022 Do you belong to any clubs o r organizations such as christian groups, unions, fraternal or athletic groups, or [...] Answer Date Recorded PHQ-2 Score 0 08/15/2022 [facility] - Occupational [...] place to sleep or slept in a usp (including now)? No 06/19/2022 Depression Answer Date [...] Sex Assigned at Female 02/06/2017 1:39 PM ELEMENTARY INSTRUCTIONAL COACH Legal Sex Female 9:30 AM ELEMENTARY INSTRUCTIONAL COACH Gender Identity Female 02/06/2017 1:39 PM ELEMENTARY INSTRUCTIONAL COACH Sexual Orientation Straight 02/06/2017 1: 39 PM ELEMENTARY INSTRUCTIONAL COACH documented as of this encounter Plan of Treatment Upcoming Encounters Date Type Department Care Team (Latest Contact Info) Description 07/18/2024 10:45 AM CDT Clinical Communication Virtual Review in [place], [place] [address] [place] [phone] 07/22/2024 2:00 PM CDT Appointment Department of Laboratory Medicine and Pathology, [facility], in [place], [place] [address] [place] [phone] Ayala Roth APRN, C.N.P. [address] [place] [phone] 07/22/2024 3:30 PM CDT Office Visit Division of Rheumatology in [place], [place] [address] [place] [phone] Ayala Roth APRN, C.N.P. [address] [place] [phone] documented as of this encounter Visit Diagnoses Not on filedocumented in this encounter Additional Health Concerns Assessment Noted Time PHQ-9 Depression Total Score: 4 08/16/19 23 9:00 AM CDT documented as of this encounter Care Teams Store Hand Relationship Specialty Start Date End Date Elsewhere, Pcp PCP - General Internal Medicine 03/23/23 documented as of this encounter
--- OUTSIDE RECORDS SUMMARY | 2024-06-23 19:52 | XMS_ITS | Clinical Summary ---
Author Organization [place] Address [address] [place] [address] Care Team Providers Care Educational Guidance Counselor Name Role Phone [place] Alvarezke Yang Primary Care Provider Allergies Active Allergy Reactions Criticality Noted Date Comments Penicillins Hives,Rash Low 05/28/2020 Encounters Date Type Department Care Team Description 06/09/2024 2:45 PM CDT Office Visit [facility] Maternal Medicine [facility] [address] [facility] [address] [place] [address] Zoey Mustafa MD Hoover, Elizabeth, MD Placenta previa antepartum in second trimester (Primary Dx); related condition in second trimester; Multigravida of advanced maternal age in second trimester; resulting from in vitro fertilization in second trimester 06/09/2024 1:54 PM CDT - 06/09/2024 11:59 PM CDT Hospital Encounter [facility] Maternal Medicine [facility] [address] [facility] [address] [place] [address] Zoey Msutafa MD Hoover, Elizabeth, MD related condition, antepartum Discharge Disposition: Home or Self Care 06/09/2024 Travel 06/08/2024 Travel 06/02/2024 PRE VISIT [facility] Medicine [facility] [address] [facility] [address] [place] [phone] Sunshine Agustin, MARIA E Genetic Counseling (AMA, IVF); Ultrasound (L2- AMA, IVF) 04/29/2024 Transcribe Orders [facility] Medicine [place] [address] [facility] [address] [place] [phone] Zoey Mustafa MD related condition, antepartum (Primary Dx) 04/28/2024 Medical Correspondence [facility] Information Management [address] [facility] [address] [place] [address] Scan, Non-Provider from Last 3 Months Social [...] Info) Description 06/30/2024 9:30 AM CDT Appointment [facility] Maternal Medicine [place] [address] [facility] [address] [place] [phone] Zoey [facility] [address] [place] [address] Valentine Grant MD [address] [place] [address] 06/30/2024 10:00 AM CDT Office Visit [facility] Maternal Medicine [place] [address] [facility] [address] [place] [phone] Zoey Mustafa [facility] [address] [place] [address] Valentine Grant MD [address] [place], [place] [phone] 06/30/2024 10:15 AM CDT Appointment [facility] Maternal Medicine [facility] [address] [facility] [address] [place] [phone] Valentine Grant MD [address] [place] [address] Health Maintenance Due Date Last Done [...] Procedure Name Priority Date/Time Associated Diagnosis Comments [facility] COMPREHENSIVE SINGLE Routine 06/09/2024 3:03 PM CDT related condition, antepartum COMPREHENSIVE METABOLIC PANEL STAT 05/28/2020 11:36 AM CDT from Last 3 Months or Most Recently Relevant to Health Maintenance Results * [facility] US Comprehensive Single (06/09/2024 3:03 PM CDT) [...] BA Study Date: 06/09/2024 2:01pm Pat. NO: [id number] Referring MD: ZOEY GRIFFIN Site: Valet Parking Attendant: Maryann Grimes RDMS : 1985 Age: 38 [...] 0 lb 9 oz EFW by Hadlock ([id number]) Head / Face / Neck Biometry: Clam Treader 6.0 mm CM 3.3 mm Nasal bone 5.7 mm ANATOMY ----- The following structures appear normal: Head / Neck Cranium. Head size. Head shape. Lateral ventricles. Choroid plexus. Midline falx. Cavum septi pellucidi. Cerebellum. Cisterna magna. Parenchyma. Thalami. Vermis. Neck. Nuchal fold. Face Lips. Profile. Nose. Maxilla. Mandible. Orbits. Lens. Heart / Thorax RVOT view. LVOT view. 3-vessel view. 3-dzruzk-xnstahv view. Situs. Bicaval view. Ductal arch view. [...] recommended at the time of echocardiogram with [facility] to re-assess placental location. She has 2 [...] the patient (reviewing medical records/tests), in direct ywfm-wi-hrre contact with the patient counseling and discussing the plan of care, documenting the visit in the electronic medical record, and communicating with other health home health care coordinator and/or care coordination. Procedure Note Valentine Grant MD - 06/09/2024 Comprehensive ----- Pat. Name: ANGELIKA BA Study Date: 06/09/2024 2:01pm Pat. NO: [id number] Referring MD: ZOEY GRIFFIN Site: Valet Parking Attendant: Maryann Grimes RDMS : 1985 Age: 38 [...] EFW (lb,oz) 0 lb 9oz EFW by Hadlock([id number]) Head / Face / Neck Biometry: Clam Treader 6.0mm CM 3.3mm Nasal bone 5.7mm ANATOMY ----- The following structures appear normal: Head / Neck Cranium. Head size. Head shape.Lateral ventricles. Choroid plexus. Midline falx. Cavum septi pellucidi.Cerebellum. Cisterna magna. Parenchyma. Thalami. Vermis. Neck. Nuchal fold. Face Lips. Profile. Nose. Maxilla.Mandible. Orbits. Lens. Heart / Thorax RVOT view. LVOT view. 3-vessel view.5-eyxkto-fdfoewe view. Situs. Bicaval view. Ductal arch view. [...] see the patient(reviewing medical records/tests), in direct wfdn-yn-ixfk contact with the patient counseling and discussingthe plan of care, documenting the visit in the electronic medical record,and communicating with other health home health care coordinator and/or care coordination. IMPRESSION ----- 1. Cannon [...] placenta previa. us Zoey Griffin MD IMG [facility] US ORDERABLES Ed ited Result - Final * (ABNORMAL) Comprehensive metabolic panel (05/28/2020 11:36 AM CDT) Sodium 142 133 - 144 mmol/L 05/28/2020 12:18 PM T [facility] Potassium 3.4 3.4 - 5.3 mmol/L 05/28/2020 12:18 PM [facility] Chloride 112(H) 94 - 109 mmol/L 05/28/2020 12:18 PM [facility] Carbon Dioxide 23 20 - 32 mmol/L 05/28/2020 12:25 PM [facility] Anion Gap 7 3 - 14 mmol/L 05/28/2020 12:25 PM [facility] Glucose 92 70 - 99 mg/dL 05/28/2020 12:25 PM [facility] Urea Nitrogen 4(L) 7 - 30 mg/dL 05/28/2020 12:25 PM [facility] Creatinine 0.48(L) 0.52 - 1.04 mg/dL 05/28/2020 12:25 PM [facility] GFR Estimate >90 >60 mL/min/{1 .73_m2} 05/28/2020 12:25 PM [facility] Comment: Non GFR Calc Starting 02/19/2018, serum creatinine based estimated GFR (eGFR) will be calculated using the Chronic Kidney Disease Epidemiology Collaboration (CKD-EPI) equation. GFR Estimate If Black >90 >60 mL/min/{1 .73_m2} 05/28/2020 12:25 PM [facility] Comment: GFR Calc Starting 02/19/2018, serum creatinine based estimated GFR (eGFR) will be calculated using the Chronic Kidney Disease Epidemiology Collaboration (CKD-EPI) equation. Calcium 8.9 8.5 - 10.1 mg/dL 05/28/2020 12:25 PM CDT [facility] Bilirubin Total 0.4 0.2 - 1.3 mg/dL 05/28/2020 12:28 PM CDT [facility] Albumin 3.8 3.4 - 5.0 g/dL 05/28/2020 12:28 PM CDT [facility] Protein Total 6.8 6.8 - 8.8 g/dL 05/28/2020 12:28 PM CDT [facility] Alkaline Phosphatase 42 40 - 150 U/L 05/28/2020 12:28 PM T [facility] ALT 33 0 - 50 U/L 05/28/2020 12:28 PM T [facility] AST 15 0 - 45 U/L 05/28/2020 12:28 PM [facility] Blood specimen (specimen) 05/28/2020 11:36 AM CDT 05/28/2020 12:01 PM CDT Mindy Rubio MD LAB - BLOOD ORDERABLES F inal Result [facility] [address] [place] [id number], [facility] [phone] from Last 3 Months or Most Recently Relevant to Health Maintenance Insurance [facility] Care Teams Educational Guidance Counselor Relationship Specialty Start Date End Date Dana Alvarez DO PCP - General Family Medicine 05/28/20
--- OUTSIDE RECORDS SUMMARY | 2024-06-23 19:52 | XMS_ITS | Encounter Summary ---
Author Organization [place] Address [address] [place] [address] Care Team Providers Care Mechanical Commissioning Engineer Name Role Phone [place] Alvarezke Yang Primary Care Provider [phone] Encounter Details Date Type Department Care Team [...] Info) Description 06/30/2024 9:30 AM CDT Appointment [facility] Maternal Medicine [facility] [address] [facility] [address] [place] [phone] Zoey Mustafa [facility] [address] [place] [address] Valentine Grant MD [address] [place] [phone] 06/30/2024 10:00 AM CDT Office Visit [facility] Maternal Medicine [facility] [address] [facility] [address] [place] [address] Zoey Mustafa MD [facility] [address] [place] [address] Valentine Grant MD [address] [place] [phone] 06/30/2024 10:15 AM CDT Appointment [facility] Maternal Medicine [facility] [address] [facility] [address] [place] [address] Valentine Grant MD [address] [place] [address] documented as of this encounter Visit Diagnoses Not on filedocumented in this encounter Care Teams Mechanical Commissioning Engineer Relationship Specialty Start Date End Date Dana Alvarez DO PCP - General Family Medicine 05/28/20 documented as of this encounter
--- OUTSIDE RECORDS SUMMARY | 2024-06-23 19:52 | XMS_ITS | Encounter Summary ---
Author Organization [place] Address [address] [place] [address] Care Team Providers Care Global Mobility Specialist Name Role Phone [place] Alvarezke Yang Primary Care Provider [phone] Encounter Details Date Type Department Care Team [...] Info) Description 06/30/2024 9:30 AM CDT Appointment [facility] Maternal Medicine [facility] [address] [facility] [address] [place] [phone] Zoey Mustafa MD [facility] [address] [place] [address] Valentine Grant MD [address] [place] [address] 06/30/2024 10:00 AM CDT Office Visit [facility] Maternal Medicine [facility] [address] [facility] [address] [place] [address] Zoey Mustafa MD [facility] [address] [place] [address] Valentine Grant MD [address] [place] [phone] 06/30/2024 10:15 AM CDT Appointment [facility] Maternal Medicine [facility] [address] [facility] [address] [place] [address] Valentine Grant MD [address] [place] [address] documented as of this encounter Visit Diagnoses Not on filedocumented in this encounter Care Teams Global Mobility Specialist Relationship Specialty Start Date End Date Dana Alvarez DO PCP - General Family Medicine 05/28/20 documented as of this encounter
--- OUTSIDE RECORDS SUMMARY | 2024-06-23 19:52 | XMS_ITS | Encounter Summary ---
Author Organization [place] Address [address] [place] [address] Care Team Providers Care Online Marketing Coordinator Name Role Phone Dana Alvarez DO Primary Care Provider [phone] Reason for Referral * Diagnostic Imaging Ultrasound (Routine) - Pending Review Specialty Diagnoses / Procedures Referred By Solac t Referred To Contact Radiology. Diagnoses Placenta previa antepartum in second trimester Conceived by in vitro fertilization Procedures [facility] Comprehensive Single F/U Valentine Grant MD [address] [place] [address] Phone: tel: fax: Referral ID Status Reason Start Date Expiration Date V isits Requested Visits Authorized [id number] Pending Review 06/09/2024 06/09/2025 1 1 * Diagnostic Imaging Ultrasound (Routine) - Pending Review Specialty Diagnoses / Procedures [facility] Ref[facility] To Contact Radiology. Diagnoses Placenta previa antepartum in second trimester Procedures [facility] Single F/U Valentine Grant MD [address] [place] [address] Phone: tel: fax: Referral ID Status Reason Start Date Expiration Date V isits Requested Visits Authorized [id number] Pending Review 06/09/2024 06/09/2025 1 1 Reason for Visit * Reason Comments Ultrasound L2- AMA, IVF Encounter Details Date Type Department Care Team (Latest Contact Info) Description 06/09/2024 2:45 PM CDT Office Visit [facility] M[facility] Medicine [facility] [place] [address] [facility] [address] [place] [address] Zoey Mustafa MD [facility] [address] [place] [address] Valentine Grant MD [address] [address] Placenta previa antepartum in second trimester (Primary [...] the Maternal- Medicine Center. Valentine Grant MD Strip Cutter, MASTER BARBER Maternal- Medicine documented in this encounter Nursing [...] Description 06/30/2024 9:[address] [facility] Maternal Medicine [place] [address] [address] [facility] [address] [place] [phone] Zoey Mustafa MD [address] [address] Valentine Grant MD [address] [place] [address] 06/30/2024 10:00 AM CDT Office Visit [facility] Maternal Medicine [place] [address] [address] [facility] [address] [place] [phone] Zoey Mustafa MD [facility] [address] [place] [address] Valentine Grant MD [address] [place] [address] 06/30/2024 10:15 AM CDT Appointment [facility] Medicine [place] [address] [address] [facility] [address] [place] [phone] Valentine Grant MD [address] [place] [phone] Scheduled Orders Name Type Priority Associated Diagnoses Orde r Schedule [facility] US Comprehensive Single F/U Imaging Routine Placenta previa antepartum in second trimester Expected: 08/18/2024 (Approximate), Expires: 06/09/2025 [facility] US Comprehensive Single F/U Imaging Routine [...] trimester documented in this encounter Care Teams Online Marketing Coordinator Relationship Specialty Start Date End Date Dana Alvarez DO PCP - General Family Medicine 05/28/20 documented as of this encounter
--- OUTSIDE RECORDS SUMMARY | 2024-06-23 19:52 | XMS_ITS | Encounter Summary ---
Author Organization [place] Address [address] [place] [address] Care Team Providers Care Brick Sorter Name Role Phone Dana Alvarez DO Primary Care Provider [phone] Reason for Visit * Reason Comments Genetic Counseling AMA, IVF Ultrasound L2- AMA, IVF Encounter Details Date Type Department Care Team (Late st Contact Info) Description 06/02/2024 PRE VISIT [facility] Maternal Medicine [facility] [address] [facility] [address] [place] [address] Sunshine Agustin RN Genetic Counseling [...] Info) Description 06/30/2024 9:30 AM CDT Appointment [facility] Maternal Medicine [facility] [address] [place] [address] Zoey Mustafa MD [facility] [address] [place] [address] Valentine Grant MD [address] [place] [address] 06/30/2024 10:00 AM CDT Office Visit [facility] Medicine [place] [address] [address] [facility] [address] [place] [phone] Zoey Mustafa MD [address] [address] Valentine Grant MD [address] [place] [address] 06/30/2024 10:15 AM CDT Appointment [facility] Medicine [place] [address] [address] [facility] [address] [place] [phone] Valentine Grant MD [address] [place] [address] documented as of this encounter Visit Diagnoses Not on filedocumented in this encounter Care Teams Brick Sorter Relationship Specialty Start Date End Date Dana Alvarez DO PCP - General Family Medicine 05/28/20 documented as of this encounter
--- OUTSIDE RECORDS SUMMARY | 2024-06-23 19:52 | XMS_ITS | Encounter Summary ---
Author Organization [facility] Address [address] [place] [address] Care Team Providers Care Go Go Dancer Name Role Phone Elsewhere, Pcp Primary Care Provider Unavailabl e Encounter Details Date Type Department Care Team (Late st Contact Info) Description 06/20/2024 Orders Only [facility] [place] [id number] , [facility] [address] [place] [address] Alyssa Valle Social History Tobacco [...] How often do you attend chur or scientology services? Never 06/19/2022 Do you belong to any clubs o r organizations such as jain groups, unions, fraternal or athletic groups, or [...] Answer Date Recorded PHQ-2 Score 0 08/15/2022 [facility] Questionnaire Answer Date [...] place to sleep or slept in a mcc (including now)? No 06/19/2022 Depression Answer Date [...] Sex Assigned at Female 02/06/2017 1:39 PM RN CLINICAL Legal Sex Female 9:30 AM RN CLINICAL Gender Identity Female 02/06/2017 1:39 PM RN CLINICAL Sexual Orientation Straight 02/06/2017 1: 39 PM RN CLINICAL documented as of this encounter Plan of Treatment Upcoming Encounters Date Type Department Care Team (Latest Contact Info) Description 07/18/2024 10:45 AM CDT Clinical Communication Virtual Review in [place], [place] [address] [place] [address] 07/22/2024 2:00 PM CDT Appointment Department of Laboratory Medicine and Pathology, [facility], in [place], [place] [address] [place] [phone] Ayala Roth APRN, C.N.P. [address] [place] [phone] 07/22/2024 3:30 PM CDT Office Visit Division of Rheumatology in [address] [phone] Ayala Roth APRN, C.N.P. [address] [place] [phone] documented as of this encounter Visit Diagnoses Not on filedocumented in this encounter Additional Health Concerns Assessment Noted Time PHQ-9 Depression Total Score: 4 08/16/19 23 9:00 AM CDT documented as of this encounter Care Teams Go Go Dancer Relationship Specialty Start Date End Date Elsewhere, Pcp PCP - General Internal Medicine 03/23/23 documented as of this encounter
[2024-06-23 20:07] LABS: Appearance Urine Clear (Clear); Bilirubin Urine Negative (Negative); Blood Urine Negative (Negative); Color Urine Yellow (Yellow); Glucose Urine Negative (Negative); Ketones Urine 1+ (Negative); Leukocyte Esterase Urine Trace (Negative); Nitrite Urine Negative (Negative); Protein Urine Negative (Negative); Specific Gravity Urine 1.025 (1.000-1.030); Urobilinogen Urine 0.2 (0.2-1.0); pH Urine 6.5 (5.0-8.5)
[2024-06-23] MEDS: 0.9 % SODIUM CHLORIDE 1000 ml 1,000 ML IV ×2 (20:10→21:50)
[2024-06-23 20:16] LABS: Bacteria Urine Few; RBC Urine 0-2 (0-2); WBC Urine 0-2 (0-5)
[2024-06-23 20:28] LABS: Chloride* 104 mmol/L (96-114); Sodium* 136 mmol/L (135-149)
[2024-06-23 20:29] LABS: Potassium* 3.6 mmol/L (3.6-5.1)
[2024-06-23 20:31] LABS: Blood Urea Nitrogen* 6 mg/dL (5-24); Creatinine* 0.5 mg/dL (0.5-1.5); Est. Creatinine Clearance* 133.03; Estimated Glomerular Filt Rate 124 ml/min
[2024-06-23 20:32] LABS: Anion Gap 9 mEq/L (7-15); Calcium* 9.4 mg/dL (8.4-10.6); Carbon Dioxide* 23 mmol/L (20-32); Glucose* 82 mg/dL (60-115)
[2024-06-23 20:33] VITALS: BP 119/68; PULSE 69; RESP 16; O2SAT 100
[2024-06-23 20:37] LABS: Basophils Percent Auto 0.2 % (0.0-3.0); Eosinophils Percent Auto 0.6 % (0.0-7.0); Hematocrit 34.7 % (33.0-51.0); Hemoglobin* 11.5 gm/dL (12.0-16.0); Immature Granulocytes Pct Auto 0.2 %; Lymphocytes Percent Auto 23.6 % (20-44); Mean Corpuscular HGB Conc 33 gm/dL (32-36); Mean Corpuscular Hemoglobin 31 pg (26-34); Mean Corpuscular Volume 95 fL (80-100); Monocytes Percent Auto 6.7 % (0.0-11.0); Neutrophils Percent Auto 68.7 % (42.0-72.0); Platelet Count* 353 K/uL (140-440); RDW Coefficient of Variation % 12.9 % (11.5-15.5); Red Blood Count 3.67 m/uL (4.00-5.20); White Blood Count* 14.09 K/uL (4.50-11.00)
[2024-06-23 20:38] LABS: PCR FLU A Negative PCR FLU A (Negative); PCR FLU B Negative PCR FLU B (Negative); PCR RSV Negative PCR RSV (Negative); SARS PCR* Negative SARS-CoV-2 (Negative)
[2024-06-23 20:43] LABS: Slide Review Reflex No
[2024-06-23] MEDS: ONDANSETRON 2 MG/ML inj 4 MG IVP (21:44)
[2024-06-23 21:46] VITALS: BP 117/74; PULSE 68; RESP 18; O2SAT 99
== END 2024-06-23 22:27 | disposition home or self-care (01) ==
PROVIDERS: Emergency Provider Family Medicine; PCP Physician Assistant Medical
DX: O21.0 Mild hyperemesis gravidarum (principal); Z3A.20 20 weeks gestation of pregnancy
CPT/HCPCS: 36415; 80048; 81001; 85025; 87086; 87631; 96374; 99283; 99284; J2405; J7030

== ENCOUNTER 2024-08-14 12:19 | Outpatient (CLI) | payer BC, SELFPAY | END 2024-08-14 12:20 | disposition home or self-care (01) | LOC: NFLDREF 12:20 | PROVIDERS: PCP Physician Assistant Medical; Visit Provider Obstetrics & Gynecology | DX: O99.019 Anemia complicating pregnancy, unspecified trimester (principal); D64.9 Anemia, unspecified | CPT/HCPCS: 82728; 86592; 86850 ==

== ENCOUNTER 2024-08-29 11:30 | Outpatient (RCR) | payer BC, SELFPAY ==
--- NOTE | 2024-08-18 14:35 | ONC.NURNOTE ---
Diagnosis: JANETT in
[2024-08-19 11:02] VITALS: BP 116/76; PULSE 84; RESP 15; TEMP 36.4; O2SAT 97
[2024-08-19] MEDS: SODIUM CHLORIDE 0.9 % (FLUSH) 10 ML SYRINGE IVF (11:20)
[2024-08-19 12:08] VITALS: BP 100/64; PULSE 77; RESP 16; TEMP 36.2; O2SAT 96
[2024-08-19 12:45] VITALS: BP 114/73; PULSE 79; RESP 18; TEMP 36.2; O2SAT 97
[2024-08-21 11:20] VITALS: BP 110/75; PULSE 91; RESP 16; TEMP 36.3; O2SAT 96
[2024-08-21] MEDS: SODIUM CHLORIDE 0.9 % (FLUSH) 10 ML SYRINGE IVF (11:49)
[2024-08-21 12:15] VITALS: BP 112/71; PULSE 84; RESP 16; O2SAT 95
[2024-08-25 12:56] VITALS: BP 130/75; PULSE 83; RESP 15; TEMP 36.4; O2SAT 97
[2024-08-25] MEDS: SODIUM CHLORIDE 0.9 % (FLUSH) 10 ML SYRINGE IVF (13:19)
[2024-08-25 13:46] VITALS: BP 108/71; PULSE 84; RESP 16; O2SAT 97
[2024-08-27 08:57] VITALS: BP 117/76; PULSE 84; RESP 17; TEMP 36.2; O2SAT 96
[2024-08-27] MEDS: SODIUM CHLORIDE 0.9 % (FLUSH) 10 ML SYRINGE IVF (09:17)
[2024-08-29 10:46] VITALS: BP 110/73; PULSE 85; TEMP 36.4; O2SAT 97
[2024-08-29] MEDS: SODIUM CHLORIDE 0.9 % (FLUSH) 10 ML SYRINGE IVF (11:05)
[2024-08-29 11:27] VITALS: BP 105/70; PULSE 80; RESP 16; O2SAT 96
[2024-08-29 12:03] VITALS: BP 104/70; PULSE 80; RESP 18; O2SAT 97
== END 2025-02-15 23:59 | disposition home or self-care (01) ==
LOC: CCIC 11:30
PROVIDERS: PCP Physician Assistant Medical; Referring Provider Physician Assistant Medical; Visit Provider Clinical Nurse Specialist
DX: O99.013 Anemia complicating pregnancy, third trimester (principal); D50.9 Iron deficiency anemia, unspecified
CPT/HCPCS: 96365; 96374; J1756; J7050

== ENCOUNTER 2024-09-18 13:43 | Outpatient (CLI) | payer BC, SELFPAY ==
--- NOTE | 2024-09-18 14:00 | CRLHL7_ITS ---
For Patients: As a result of the Century Cures Act, medical imaging exams and procedure reports are released immediately into your electronic medical record. You may view this report before your referring provider. If you have questions, please contact your health care provider. OB ULTRASOUND FOLLOW-UP/LIMITED, 09/18/2024 CLINICAL HISTORY: Growth for IVF. COMPARISON: 03/31/2024. TECHNIQUE: Real time plata scale imaging of the fetus was performed. Transabdominal imaging performed. FINDINGS: ANNIA by LMP: 11/12/2024. GA: 32 weeks 5 days. Cervix: Not visualized. Position: Vertex. Amniotic Fluid: 6.5 cm SDP. Placenta: Technique: TA. Placenta Position: Anterior. Dopplers: Heart Rate: 142 bpm. BIOMETRY: BPD: 8.4 cm, 34 weeks 0 days. 79% HC: 30.1 cm, 33 weeks 3 days. 30% AC: 29 cm, 33 weeks 0 days. 60% FL: 6.4 cm, 33 weeks 0 days. 45% FL/AC Ratio: 21.98% HC/AC Ratio: 1.04. EFW: 2126 g, 4 lb 11 oz. age by this US: 33 weeks 3 days. ANNIA by this US: 11/03/2024. Percentile by ANNIA: 54% IMPRESSION: 1. Sonographic gestational age 33 weeks 3 days and sonographic due date 11/03/2024. Sonographic age is 5 days ahead of the clinical age. 2. Estimated weight 54th percentile. Abdominal circumference 60th percentile. Thiago Martin M.D. Diagnostic Radiologist [email or web address] Transcribed: 3:45 pm DW/Dictated by: Thiago Martin MD @ 09/18/2024 3:29:00 PM (Electronically Signed)
== END 2024-09-18 13:44 | disposition home or self-care (01) ==
LOC: US 13:44
PROVIDERS: PCP Physician Assistant Medical; Visit Provider Obstetrics & Gynecology
DX: O09.813 Supervision of pregnancy resulting from assisted reproductive technology, third trimester (principal); Z3A.32 32 weeks gestation of pregnancy
CPT/HCPCS: 76816

== ENCOUNTER 2024-10-02 13:31 | Outpatient (CLI) | payer BC, SELFPAY | END 2024-10-02 13:32 | disposition home or self-care (01) | LOC: FRMREF 13:31 | PROVIDERS: PCP Physician Assistant Medical; Visit Provider Registered Nurse | DX: Z34.83 Encounter for supervision of other normal pregnancy, third trimester (principal) | CPT/HCPCS: 82728; 87086 ==

== ENCOUNTER 2024-10-16 12:40 | Outpatient (CLI) | payer BC, SELFPAY ==
--- NOTE | 2024-10-16 13:00 | CRLHL7_ITS ---
For Patients: As a result of the Cures Act, medical imaging exams and procedure reports are released immediately into your electronic medical record. You may view this report before your referring provider. If you have questions, please contact your health care provider. OBSTETRICAL ULTRASOUND ??? BIOPHYSICAL PROFILE and FOLLOW-UP, 10/16/2024 INDICATION: IVF . CLINICAL HISTORY: ANNIA: 11/08/2024 Gestational Age: 36 weeks 5 days Surgery: No COMPARISON: 09/18/2024, 08/18/2024, 06/30/2024. TECHNIQUE: Real-time plata-scale transabdominal imaging of the fetus was performed. FINDINGS: Fetus: Single Cervix: Not visualized positioning: Vertex Amniotic Fluid: 4.2 cm SDP BIOPHYSICAL PROFILE: Gross body movements: 2 tone: 2 Respiratory activity: 2 Amniotic fluid SDP: 2 Total score: 8 Placenta technique: Transabdominal Placenta position: Anterior heart rate: 159 bpm BIOMETRY: BPD: 9.1 cm, 37 weeks 1 day, 73% HC: 32.7 cm, 37 weeks 1 day, 32% AC: 33.2 cm, 37 weeks 1 day, 75% FL: 7.0 cm, 35 weeks 5 days, 24% FL/AC Ratio: 20.97% HC/AC ratio: 0.98 EFW: 3035 grams; 6 lbs. 11 oz. age by this ultrasound: 36 weeks 6 days ANNIA by this ultrasound: 11/07/2024 Percentile by ANNIA: 57% IMPRESSION: 1. Normal biophysical profile score of 8. 2. Sonographic gestational age 36 weeks 6 days and sonographic due date 11/07/2024. 3. Estimated weight is 57th percentile. Abdominal circumference is 75th percentile. THIAGO POMPA M.D. Diagnostic Radiologist [email or web address] Transcribed: 4:[address]/Dictated by: Thiago Pompa MD @ 10/16/2024 3:43:00 PM (Electronically Signed)
== END 2024-10-16 12:41 | disposition home or self-care (01) ==
LOC: US 12:40
PROVIDERS: PCP Physician Assistant Medical; Visit Provider Obstetrics & Gynecology
DX: O09.813 Supervision of pregnancy resulting from assisted reproductive technology, third trimester (principal); Z3A.36 36 weeks gestation of pregnancy
CPT/HCPCS: 76816; 76819; 87081; 87653

== ENCOUNTER 2024-10-16 14:15 | Outpatient (CLI) | payer BC, SELFPAY ==
[2024-10-17 19:51] LABS: Strep B DNA Probe Negative (Negative)
[2024-10-17 20:48] LABS: Strep B Susceptibility Needed? No
== END 2024-10-16 14:16 | disposition home or self-care (01) ==
LOC: NFLDREF 14:16
PROVIDERS: PCP Physician Assistant Medical; Visit Provider Obstetrics & Gynecology
DX: Z34.93 Encounter for supervision of normal pregnancy, unspecified, third trimester (principal); Z3A.36 36 weeks gestation of pregnancy; Z88.0 Allergy status to penicillin
CPT/HCPCS: 87081; 87653

== ENCOUNTER 2024-10-28 18:28 | Outpatient (CLI) | payer BC, SELFPAY ==
[2024-10-28 18:32] VITALS: PULSE 74; O2SAT 96
[2024-10-28 18:44] VITALS: BP 138/83; PULSE 75
[2024-10-28 19:40] LABS: Appearance Urine Clear (Clear)
--- NOTE | 2024-10-28 21:48 | PC.OBNST ---
NST Note NST Note Start: 10/28/24 18:35 Freq: ONCE Status: Active Protocol: Document 10/28/24 21:47 BAW (Rec: 10/28/24 21:48 BAW No Response) NST Note 3 Para (# of births) 0 EDC 11/08/24 Gestational Age In 38 Weeks & 3 Days Weeks & Days High Risk Factors Advanced Maternal Age Patient Presented Contractions/cramping with Complaint(s) of Reactive Yes Appropriate for Yes Gestational Age MARIA E Oakes RNC Date 10/28/24 Reactive Yes Appropriate for Yes Gestational Age MARIA E Gibson RN Date 10/28/24 OB NST charge Yes Complete NST Note Yes via Write Note The provider's electronic signature indicates the NST is reactive/appropriate for gestational age. *Note to provider: If an addendum is required, open the patient's chart and click on the note under the Nurse/Allied Health tab.
== END 2024-10-28 21:00 | disposition home or self-care (01) ==
LOC: OB 18:38 → OB OUT 18:38
PROVIDERS: PCP Physician Assistant Medical; Visit Provider Obstetrics & Gynecology
DX: O47.1 False labor at or after 37 completed weeks of gestation (principal); O09.523 Supervision of elderly multigravida, third trimester; Z3A.38 38 weeks gestation of pregnancy
CPT/HCPCS: 59025; 81001; 81003; G0463

== ENCOUNTER 2024-10-30 12:39 | Outpatient (CLI) | payer BC, SELFPAY ==
--- NOTE | 2024-10-30 13:00 | CRLHL7_ITS ---
For Patients: As a result of the Cures Act, medical imaging exams and procedure reports are released immediately into your electronic medical record. You may view this report before your referring provider. If you have questions, please contact your health care provider. OBSTETRICAL ULTRASOUND ??? BIOPHYSICAL PROFILE, 10/30/2024 INDICATION: IVF. CLINICAL HISTORY: ANNIA: 11/08/2024 Gestational Age: 38 weeks 5 days COMPARISON: 10/16/2024, 09/18/2024, 08/18/2024, 06/30/2024. TECHNIQUE: Real-time plata-scale transabdominal imaging of the fetus. FINDINGS: Fetus: Single Cervix: Not visualized positioning: Vertex Amniotic Fluid: 4.2 cm SDP BIOPHYSICAL PROFILE: Gross body movements: 2 tone: 2 Respiratory activity: 2 Amniotic fluid SDP: 2 Total score: 8 Placenta technique: Transabdominal Placenta position: Anterior heart rate: 137 bpm IMPRESSION: Normal biophysical profile score of 8/8. THIAGO POMPA M.D. Diagnostic Radiologist [email or web address] Transcribed: 3:[address]/Dictated by: Thiago Pompa MD @ 10/30/2024 2:35:00 PM (Electronically Signed)
== END 2024-10-30 12:40 | disposition home or self-care (01) ==
LOC: US 12:39
PROVIDERS: PCP Physician Assistant Medical; Visit Provider Obstetrics & Gynecology
DX: O09.813 Supervision of pregnancy resulting from assisted reproductive technology, third trimester (principal); Z3A.38 38 weeks gestation of pregnancy
CPT/HCPCS: 76819

== ENCOUNTER 2024-11-03 16:35 | Inpatient (IN) | payer BC, SELFPAY ==
[2024-11-03] VITALS (8 sets, daily range): BP systolic 124–142; BP diastolic 59–87; PULSE 72–90; RESP 16; TEMP 36.6–36.8; BMI 33.3
--- NOTE | 2024-11-03 17:48 | W.PM.LDBA ---
Subjective History of Present Illness Narrative: Patient is being admitted to Labor and Delivery for cervical ripening / induction of labor. She is a 39 year old at 39 2/7 weeks gestation. Her full history and physical was dictated by Dr. De Los Santos on 10/16/24. Please see this for details. Specific Issues/Plans Partner: Ángel Baby: Girl! H&P: CGM 10/16/24 #Seen for r/o labor 10/28. UA showed 1+ bilirubinuria. Please repeat UA at OB visit 10/30. ordered # Patient would like to consider removal of mole during vaginal delivery if possible. # IVF 06/09/2024 Level 2: see below. echo 06/30/24: Normal. No additional cardiac evaluation needed unless clinically indicated. Weekly testing starting at 36 weeks-scheduling form sent 08/29/34 Growth ultrasound at 32 weeks IOL at 39 weeks # Hemoglobin with Hb 10.7 on 07/22/24 Prescription given for liquid iron IV iron infusions ordered # ankylosing spondylitis Followed by [facility]. Rheumatology each trimester Adalimumab injection 40mg every 14 days (Like Humira) Last seen 07/22/24, no change in plan No Recent flare # AMA ASA 81mg Genetic screenin04/28/24 [place] for aneuploidy (low risk), carrier status (negative) and Rh screen (fetus is Rh negative). Level 2: See below # Rh-negative: The fetus is Rh(-) so patient does not need rhogam. # COVID in early . Positive COVID with positive test # depression with anxiety Sertraline 100 mg # ADD, discontinued Adderall with positive test # migraine with aura # history recurrent loss x 2 # Marginal anterior venous sinus previa: tx'd like a marginal previa 06/30: Continued ant venous sinus marginal previa. Rec' F/U for sinus location at 28 wks - currently scheduled at [facility]. Also has echo scheduled there. RESOLVED 08/18/2024 # Hyperemesis Gravidarum with dehydration Seen in the ED for IVF and IV zofran on 06/23/24 Unable to keep tablets of zofran or phenergan down Emesis up to 10x/day Electrolytes normal on 06/23 Reglan 10mg PO QID prn and Ondansetron ODT 4mg given on 06/25/24 If emesis not improved on reglan and ondansetron then recommended PICC, home IVF and home IV antiemetics. Improved on Reglan 08/29/24. Imagin. 06/09/24 LVL 2 USN: Vtx. SDP 5.7cm. EFW 67%. Anterior placenta with a marginal venous sinus previa: tx'd like a marginal previa and placental location will be evaluated at US for echo. Normal anatomy except sub-optimal cardiac images: will be reassessed when the patient has a echo (in about 3-4 weeks). 2. 06/30/24 21w2d. Transvaginal USN continues to show ant placenta with marginal venous sinus previa. 3. 08/18/2024: Breech. SDP 6.7cm. EFW: 1288g, 2#13oz. 57%. Ant. placenta previous marginal venous sinus previa resolved > 2cm from os. All suboptimally visualized structures visualized and appear normal. 4. 09/18/2024: Vtx. SDP 6.5 cm. EFW: 2126 g, 4 # 11 oz, 54%. BPD 79%, HC 30%, AC 60%, FL 45% 5. 10/16/24: Vertex presentation, single deepest pocket of amniotic fluid 4.2 cm. BPP 8/8. BPD: 73 percentile, HC: 32 percentile, AC: 75 percentile, FL: 24th percentile. EFW: 57th percentile. Vaccinations: Covid: Declined Flu: December 2023 per pt Tdap: 08/29/24 RSV: N/A [place] completed 04/28/2024: Low Risk for aneuploidy, fetus is Rh negative. Female. 32 week mental health: PHQ-9 4; TULIO-7 2. Last pap: 11/28/19 NIL/-HPV. PP pap OB - Problem Based A/P Additional Plan (1) AMA (advanced maternal age) primigravida 35+: Status: Acute (2) resulting from in-vitro fertilization: Problem details: hx of egg retrival Status: Acute Plan Induction of labor for indication of IVF . Unfavorable cervix. Cook catheter placed using aseptic technique. Intrauterine and intravaginal balloons inflated to 60 cc. Patient tolerated procedure well. To begin low-dose pitocin for cervical ripening at 9 PM. Delivery/Labor/Induction Plan Induction method: Intracervical balloon catheter OB Exam Physical Exam Vital signs: Pulse BP 90 135/81 11/03/24 16:42 11/03/24 16:42 Narrative: Physical exam: General: No acute distress Psych: Alert and oriented x3, full affect HEENT: Normocephalic, atraumatic Heart: Regular rate and rhythm, no murmur rub or gallop Lungs: Clear to auscultation bilaterally Abdomen: Soft, nontender, gravid, cephalic Lower extremities: No edema or erythema Pelvic exam: Cervix 1.5 cm / 70 / -1 / posterior / moderate tracing: Category 1
[2024-11-03 17:56] LABS: Hematocrit 30.1 % (33.0-51.0); Hemoglobin* 10.3 gm/dL (12.0-16.0); Immature Granulocytes Abs Auto 0.05 K/uL (0.00-0.30); Immature Granulocytes Pct Auto 0.5 %; Mean Corpuscular HGB Conc 34 gm/dL (32-36); Mean Corpuscular Hemoglobin 32 pg (26-34); Mean Corpuscular Volume 94 fL (80-100); RDW Coefficient of Variation % 12.5 % (11.5-15.5); Red Blood Count 3.19 m/uL (4.00-5.20); White Blood Count* 10.97 K/uL (4.50-11.00)
[2024-11-03 18:21] LABS: Lymphocytes Absolute Auto 1.90 K/uL (0.90-2.90); Slide Review Reflex No
[2024-11-03] MEDS: OXYTOCIN 30 unit/500 ML in NS 30 UNIT/500 ML BAG IVPB (21:02)
[2024-11-03] MEDS: LACTATED RINGERS 1000 ML 1,000 ML 125 ML IV (21:02)
[2024-11-03] MEDS: ONDANSETRON 2 MG/ML inj 4 MG IV (21:02)
[2024-11-04] VITALS (98 sets, daily range): BP systolic 108–187; BP diastolic 54–95; PULSE 64–111; RESP 12–20; TEMP 36.7–36.8; O2SAT 82–98
[2024-11-04] MEDS: LACTATED RINGERS 1000 ML 1,000 ML 118 ML IV (04:53)
--- NOTE | 2024-11-04 07:58 | P.OBPN_ITS ---
Subjective Time Seen by Provider: 07:45 Date Seen: 11/04/24 Narrative: The patient is comfortable, sitting up in bed eating breakfast. She describes some mild cramping discomfort. The Cook catheter was removed at 6:10 a.m. this morning. Objective Vital Signs: Last Vital Signs Temp 98.2 F 11/04/24 07:30 Pulse 64 11/04/24 07:20 Resp 16 11/04/24 07:30 BP 145/88 H 11/04/24 07:20 Pelvic Exam Dilation (cm): 5 Effacement (%): 70 Station: -2 Comments: Exam per nursing staff. Contractions Monitor mode: External Contraction Frequency: 1-3 minutes Contraction pattern: Irregular Contraction intensity: Mild Pitocin Rate (mU/min): 9 Assessment Assessment: induction ongoing Status: Category l Heart Rate Baseline: 135 [facility] Variability: Moderate (6-25) Monitor Accelerations: Present Monitor Decelerations: None Plan Plan: The patient will finish breakfast and then she was encouraged to start moving. We discussed the importance different positions and physical activity to encourage rotation and descent into the pelvis. At some point, she plans an epidural for labor analgesia. We will continue Pitocin infusion to active labor.
[2024-11-04] MEDS: SERTRALINE 100 MG TABLET PO (08:55)
[2024-11-04] MEDS: METOCLOPRAMIDE 10 MG TABLET PO (08:55)
[2024-11-04 09:00] LABS: Hematocrit 32.1 % (33.0-51.0); Hemoglobin* 10.6 gm/dL (12.0-16.0); Mean Corpuscular HGB Conc 33 gm/dL (32-36); Mean Corpuscular Hemoglobin 32 pg (26-34); Mean Corpuscular Volume 97 fL (80-100); Red Blood Count 3.32 m/uL (4.00-5.20); White Blood Count* 13.85 K/uL (4.50-11.00)
[2024-11-04 09:17] LABS: Alanine Aminotransferase* 15 U/L (4-35); Aspartate Amino Transferase* 31 U/L (12-35); Blood Urea Nitrogen* 2 mg/dL (5-24); Creatinine* 0.5 mg/dL (0.5-1.5); Est. Creatinine Clearance* 133.03; Estimated Glomerular Filt Rate 124 ml/min
[2024-11-04 09:48] LABS: Slide Review Reflex No
[2024-11-04] MEDS: LABETALOL HCL 5 MG/ML inj IVP ×2 (12:33→19:04)
[2024-11-04] MEDS: ONDANSETRON 2 MG/ML inj 4 MG IV ×2 (12:42→18:51)
[2024-11-04] MEDS: MAGNESIUM IV 4 GM/100 ML PIGGYBACK IVPB (12:43)
[2024-11-04] MEDS: MAGNESIUM Infusion 40 GM/1,000 ML IV.SOLN IVPB (13:16)
[2024-11-04] MEDS: LACTATED RINGERS 1000 ML 1,000 ML IV (13:20)
[2024-11-04] MEDS: ROPIVACAINE 0.2% 100 ml 100 ML 12 MG EPIDURAL ×2 (14:02→20:52)
[2024-11-04] MEDS: LIDOCAINE 2% (PF) 5 ML VIAL EPIDURAL (14:02)
--- NOTE | 2024-11-04 14:24 | PM.ANBPRC ---
[facility] Medical History (Updated 10/30/24 @ 14:20 by Jocelyn Christiansen MD) resulting from in-vitro fertilization ?O09.819 - Supervision of resulting from assisted reproductive technology, unspecified trimester (ICD-10) History of recurrent miscarriages ?N96 - Recurrent loss (ICD-10) Chlamydia ?A74.9 - Chlamydial infection, unspecified (ICD-10) History of miscarriage ?Z87.59 - Personal history of other complications of , childbirth and the puerperium (ICD-10) ADHD (attention deficit hyperactivity disorder) ?F90.9 - Attention-deficit hyperactivity disorder, unspecified type (ICD-10) Surgical History History of D&C (05/23/22) ?Z98.890 - Other specified postprocedural states (ICD-10) History of D&C (~06/2021) ?Z98.890 - Other specified postprocedural states (ICD-10) History of surgery on left wrist ?Z98.890 - Other specified postprocedural states (ICD-10) History of open reduction and internal fixation (ORIF) procedure ?Z98.890 - Other specified postprocedural states (ICD-10) Family History (Updated 10/22/24 @ 11:57 by Anita Collins PA-C) Paternal Grandmother Breast cancer Family/Other Depression Factor 5 Leiden mutation, heterozygous Sister Meniere's disease Skin cancer Father Non-Hodgkin lymphoma Maternal Grandfather Stroke Mother Depression Social History (Updated 10/22/24 @ 12:00 by Anita Collins PA-C) Narrative: Occupation: Not currently employed. Marital status: ( rachelle) . Caodaism/cultural needs: Raised Denominational. Chemical or radiation exposure: none known. Pre- tobacco use: none. Pre- alcohol use: None. Current tobacco use: none. Current alcohol use: none. Recreational drug use: none. Dietary restrictions: none. Blood transfusion acceptable in an emergency: YES PSYCHOSOCIAL HISTORY: History of depression or currently depressed: Yes, but currently ok ( on off tx since age 18). Current or past physical, emotional, or sexual mistreatment: No. Problems that will make it hard to make it to appointments: no barriers. What is your current living situation?: I presently have a place to live Problems where you live: no known problems In the past 12 months, utilities in danger of being shut off: no In past 12 months, lack of transportation kept you from medical appts, meetings, work, or getting things needed for daily living: no In the past 12 mos, have been you worried that your food would run out before you had money to buy more?: never true In the past 12 mos, the food you bought just didn't last and you didn't have money to buy more?: never true Smoking Status: Former smoker How often do you have a drink containing alcohol: never AUDIT-C Alcohol total score: 0 Non-prescribed substance use: denies use How often does anyone, including family, friends and others, physically hurt you: never How often does anyone, including family, friends and others, insult or talk down to you: never How often does anyone, including family, friends and others, threaten you with harm: never How often does anyone, including family, friends and others, scream or curse at you: never Meds Home Medications and Allergies Home Medications ?Medication ?Instructions ?Recorded ?Confirmed ?Type adalimumab 40 mg/0.4 mL 40 mg subcut Q14D 12/19/21 11/03/24 History subcutaneous syringe kit cholecalciferol (vitamin D3) 50 2,000 unit PO QDAY 12/19/21 11/03/24 History mcg (2,000 unit) capsule famotidine 20 mg tablet 20 mg PO QDAY 05/12/22 11/03/24 History vitamin 1 pill PO DAILY 08/21/22 11/04/24 History loratadine 10 mg tablet (Allergy 10 mg PO QDAY 09/20/23 11/03/24 History Relief (loratadine)) aspirin 81 mg tablet,delayed 81 mg PO QDAY 03/31/24 11/03/24 History release (Adult Aspirin Regimen) ferrous sulfate 300 mg (60 mg 60 mg PO Q OTHER DAY #120 mL 07/31/24 10/30/24 Rx iron)/5 mL oral liquid Held on 08/19/24. Instructions: not tolerating sertraline 100 mg tablet 100 mg PO DAILY #90 tabs 08/08/24 11/03/24 Rx metoclopramide HCl 10 mg tablet 10 mg PO Q6H PRN nausea and 09/18/24 11/04/24 Rx (Reglan) vomiting #60 tabs acetaminophen 500 mg tablet 1,000 mg PO Q6H PRN 10/23/24 11/03/24 History (Tylenol Extra Strength) calcium carbonate (Tums) 200 mg PO BID 10/23/24 11/03/24 History Allergies Allergy/AdvReac Type Severity Reaction Status Date / Time Penicillins Allergy Mild Unknown Verified 11/03/24 20:18 Results Labs Labs: Laboratory Results - last 24 hr 11/03/24 11/04/24 17:31 08:50 WBC 10.97 13.85 H RBC 3.19 L 3.32 L Hgb 10.3 L 10.6 L Hct 30.1 L 32.1 L MCV 94 97 MCH 32 32 MCHC 34 33 RDW Coeff of Rand 12.5 Plt Count 188 179 Neut % (Auto) 74.8 H Lymph % (Auto) 17.0 L [place] % (Auto) 6.7 Eos % (Auto) 0.6 Baso % (Auto) 0.4 Neut # (Auto) 8.20 H Lymph # (Auto) 1.90 [place] # (Auto) 0.70 Eos # (Auto) 0.07 Baso # (Auto) 0.04 Abs Immat Gran (auto) 0.05 Imm/Tot Granulo (auto) 0.5 BUN 2 L Creatinine 0.5 Estimated Creat Clear 133.03 Estimated GFR 124 AST 31 ALT 15 Blood Type A Negative Antibody Screen NEGATIVE Vital Signs Vital Signs: Last Vital Signs Temp 98.2 F 11/04/24 13:33 Pulse 87 11/04/24 14:24 Resp 16 11/04/24 13:33 BP 124/61 11/04/24 14:24 Pulse Ox 93 11/04/24 14:01 Weight: 88.178 kg Height: 162.56 cm Anesthesia Procedures Epidural Insertion Patient Location: OB Start Time: 13:30 Stop Time: 14:30 Start Date: 11/04/24 Stop Date: 11/04/24 Reason for Block: primary anesthetic Patient Position: sitting Performed By: Jose Mclain Preanesthetic Checklist: IV checked, risks and benefits discussed, surgical consent, monitors and equipment checked, pre-op evaluation, timeout performed and anesthesia consent Prep: chlorhexidine gluconate Monitoring: blood pressure monitoring, cardiac rehab nurse, continuous pulse oximetry and heart rate Approach: midline Vertebral Space: lumbar (1-5) Needle Type: Tuohy needle Injection Technique: continuous catheter Needle gauge: 17 Needle Length (cm): 10 cm Needle Insertion Depth (cm): 6 Catheter Gauge: 19 Catheter Type: multi-orifice Catheter at skin depth (cm): 12 Test Dose Result: negative and lidocaine 1.5% with epinephrine 1 to 200,000 Events: other
[2024-11-04 15:31] LABS: Hematocrit 30.0 % (33.0-51.0); Hemoglobin* 10.0 gm/dL (12.0-16.0); Mean Corpuscular HGB Conc 33 gm/dL (32-36); Mean Corpuscular Hemoglobin 32 pg (26-34); Mean Corpuscular Volume 97 fL (80-100); Red Blood Count 3.09 m/uL (4.00-5.20); Slide Review Reflex No; White Blood Count* 12.73 K/uL (4.50-11.00)
[2024-11-04 15:44] LABS: Alanine Aminotransferase* 14 U/L (4-35); Aspartate Amino Transferase* 23 U/L (12-35); Blood Urea Nitrogen* 2 mg/dL (5-24); Creatinine* 0.4 mg/dL (0.5-1.5); Est. Creatinine Clearance* 166.28; Estimated Glomerular Filt Rate 131 ml/min
--- NOTE | 2024-11-04 15:46 | PM.OBPNL ---
Subjective Time Seen by Provider: 03:30 Date Seen: 11/04/24 Narrative: The patient is comfortable following placement of epidural. Contractions are somewhat difficult to trace with the external monitor. The patient is now on a magnesium sulfate infusion for diagnosis of gestational hypertension with severe features based on blood pressure criteria. Objective Vital Signs: Last Vital Signs Temp 98.2 F 11/04/24 13:33 Pulse 81 11/04/24 15:44 Resp 16 11/04/24 13:33 BP 125/74 11/04/24 15:44 Pulse Ox 93 11/04/24 14:01 Pelvic Exam Dilation (cm): 6 Effacement (%): 90 Station: -2 Contractions Monitor mode: External Contraction pattern: Irregular Contraction intensity: Moderate Pitocin Rate (mU/min): 20 Assessment Assessment: induction ongoing Status: Category l Heart Rate Baseline: 135 [employer] Automatic Variability: Moderate (6-25) Monitor Accelerations: Present Monitor Decelerations: None Plan Plan: Amniotomy performed, clear fluid noted. Continue present management. If note cervical change in 1- 2 hours, consider placement of IUPC.
--- NOTE | 2024-11-04 17:50 | P.OBPN_ITS ---
Subjective Time Seen by Provider: 17:45 Date Seen: 11/04/24 Narrative: Patient is still comfortable with epidural. Cervical recheck per nursing reveals no change. IUPC planned. Objective Vital Signs: Last Vital Signs Temp 98.1 F 11/04/24 16:16 Pulse 80 11/04/24 17:44 Resp 16 11/04/24 16:16 BP 137/68 11/04/24 17:44 Pulse Ox 93 11/04/24 14:01 Pelvic Exam Dilation (cm): 6 Effacement (%): 90 Station: -2 Comments: ROP suspected Contractions Monitor mode: External Contraction pattern: Irregular Contraction intensity: Moderate Pitocin Rate (mU/min): 10 Assessment Assessment: induction ongoing Amniotic Membrane Status: AROM Status: Category l Heart Rate Baseline: 135 Chief Power Dispatcher Variability: Moderate (6-25) Monitor Accelerations: Present Monitor Decelerations: None Plan Plan: IUPC placed. Increased pitocin infusion as needed to get adequate mvus.
[2024-11-04] MEDS: LACTATED RINGERS 1000 ML 1,000 ML 75 ML IV (20:51)
[2024-11-04 20:55] LABS: Protein Creatinine Ratio Urine 4.31 (0-0.19)
[2024-11-04 21:06] LABS: Hematocrit 31.0 % (33.0-51.0); Hemoglobin* 10.4 gm/dL (12.0-16.0); Mean Corpuscular HGB Conc 34 gm/dL (32-36); Mean Corpuscular Hemoglobin 32 pg (26-34); Mean Corpuscular Volume 96 fL (80-100); Red Blood Count 3.23 m/uL (4.00-5.20); White Blood Count* 18.75 K/uL (4.50-11.00)
[2024-11-04 21:09] LABS: Slide Review Reflex No
[2024-11-05] VITALS (72 sets, daily range): BP systolic 116–153; BP diastolic 57–84; PULSE 72–108; RESP 14–24; TEMP 36.7–37.5; O2SAT 91–99
--- NOTE | 2024-11-05 01:45 | PM.OBPNL ---
Subjective Time Seen by Provider: 01:40 Date Seen: 11/05/24 Narrative: The patient has been actively pushing for almost 3 hours. She is exhausted and requests delivery. For the first hour of active pushing, the fetus was in a ROP position. I attempted a manual rotation in a counterclockwise direction, and the fetus restituted to ROP with the next contraction. A second attempt was made, and the fetus was manually rotated in a clockwise direction, which seemed to be successful, and there was some palpable descent of the vertex with molding with continued pushing efforts. However, over the last hour, there has been no further descent of the vertex. Objective Vital Signs: Last Vital Signs Temp 98.1 F 11/05/24 00:52 Pulse 107 H 11/05/24 01:28 Resp 16 11/04/24 21:55 BP 133/77 11/05/24 01:28 Pulse Ox 96 11/05/24 00:58 Pelvic Exam Dilation (cm): 10 Effacement (%): 100 Station: 0 Contractions Monitor mode: External Contraction Frequency: q3 minutes Contraction pattern: Regular Contraction intensity: Strong/Firm Pitocin Rate (mU/min): 20 Assessment Assessment: active labor Station: 0 Amniotic Membrane Status: AROM Status: Category l Heart Rate Baseline: 135 [employer] Systems Analyst Consultant Variability: Moderate (6-25) Monitor Accelerations: Present Monitor Decelerations: None Labor Progress: Arrest of descent following almost 3 hours of active pushing. Plan Plan: section is now recommended. We reviewed the relative risks and benefits of the procedure, risks including, but not limited to, bleeding, infection, injury to other organs or and anesthesia reactions. Informed consent was obtained. The O.R. team and Peds were notified. Preop orders entered. Will discontinue pitocin infusion and active pushing while preparations are being made for surgery. Will prepare for the possibility of hemorrhage by administering TXA at cord clamp. Continue Mag sulfate infusion for 24 hours .
[2024-11-05] MEDS: AZITHROMYCIN 500 MG in 0.9 % SODIUM CHLORIDE 250 ml 250 ML 255 MG IVPB (02:03)
[2024-11-05] MEDS: TRANEXAMIC ACID 100 MG/ML INJ 1000 MG IV (03:09)
[2024-11-05] MEDS: miSOPROStoL 800 MCG/4 TABLET PR (03:49)
[2024-11-05 04:31] LABS: Hematocrit 24.3 % (33.0-51.0); Hemoglobin* 8.2 gm/dL (12.0-16.0); Mean Corpuscular HGB Conc 34 gm/dL (32-36); Mean Corpuscular Hemoglobin 33 pg (26-34); Mean Corpuscular Volume 98 fL (80-100); Red Blood Count 2.48 m/uL (4.00-5.20); White Blood Count* 22.20 K/uL (4.50-11.00)
[2024-11-05 04:36] LABS: Slide Review Reflex No
[2024-11-05 04:48] LABS: INR 1.00 (0.91-1.10); Prothrombin Time 14.0 Seconds
[2024-11-05 04:49] LABS: Alanine Aminotransferase* 16 U/L (4-35); Aspartate Amino Transferase* 39 U/L (12-35); Blood Urea Nitrogen* 2 mg/dL (5-24); Creatinine* 0.7 mg/dL (0.5-1.5); Est. Creatinine Clearance* 95.02; Estimated Glomerular Filt Rate 114 ml/min
--- NOTE | 2024-11-05 05:20 | PM.OBPRCCS ---
Procedure Date of procedure: 11/05/24 Pre-op diagnosis: 1. 39 4/7 weeks gestation 2. Gestational hypertension with severe features 3. Arrest of descent secondary to occiput posterior position Post-op diagnosis: other (1. 39 4/7 weeks gestation, 2. Gestational hypertension with severe features, 3. Arrest of descent secondary to occiput posterior position, 4. Suspected placenta accreta) Procedure Done: Global [facility] bill your pro fee for this procedure?: Yes Blood Loss Measurement Type: QBL (2282 mL) Bakri Used: No (Placement of Bakri attempted x2, unsuccessful) IV fluids (mL): 2,000 (plus 500 mL albumin) Urine Output (mL): 300 Surgeon: Fe Benjamin MD Net[employer] Administrator: Yesy Taylor MD Anesthesia Type: Epidural and TAP Block Findings: Live-born female , cephalic presentation, occiput posterior position, loose nuchal cord x1. Apgars 7 and 8 at 1 and 5 minutes respectively. Weight 3640g. Anterior placenta, densely adherent in the midline in an area approximately the size of a quarter. Normal appearing tubes and ovaries bilaterally. Procedure Name: Primary low transverse section. Procedure Description: After obtaining informed consent, the patient was taken to the operating room where spinal anesthesia was obtained and found to be adequate. She was prepared and draped in the normal sterile fashion in the dorsal supine position with a leftward tilt. A Pfannenstiel skin incision was made with a scalpel. This incision was carried down to the underlying layer of fascia with the Bovie. The fascia was incised in the midline and the incision extended laterally. The superior and inferior aspects of the fascial incision were grasped with Senait clamps, elevated and the underlying rectus muscles dissected off sharply and with electrocautery. The rectus muscles were then in the midline. The Ry O retractor was then placed into the incision. The bladder appeared to be adherent to the lower uterine segment, so the vesicouterine peritoneum was identified, grasped with the pickups, and entered sharply with Metzenbaum scissors. A bladder flap was created digitally. The lower uterine segment was then incised in a transverse fashion with the scalpel. Upon entry into the uterus, clear amniotic fluid was noted. The uterine incision was extended laterally with blunt finger fractionation. The infant's head was low in the pelvis, and was elevated and then delivered atraumatically, followed by the remainder of the infant's body. The nose and mouth were suctioned with the bulb suction. The cord was doubly clamped and cut, and the was handed off the field to Anita Lawlre NP for evaluation. TXA, 1000 mg, was administered intravenously as a precaution against hemorrhage given the long labor. Pitocin was administered with the IV fluids as uterotonics. Cord blood was obtained for blood typing given maternal Rh-negative status. I attempted to deliver placenta was delivered spontaneously with umbilical cord traction and fundal massage. The placenta was slightly adherent, an with attempts at delivering it, it was apparent that the placenta was adherent in the midline as a divot was created in the mid anterior uterine body with every attempt to deliver the placenta. I was unable to develop a plane. I then called one of my credit union examiner partners to come in and assist me with evaluation of the placenta, as I suspected placenta accreta. While I was awaiting her arrival, I inspected the hysterotomy incision and found that there was a 2 cm inferior extension along the left lateral aspect of the hysterotomy incision. This was reapproximated in a running locking fashion with [address] Taylor scrubbed in to assist with evaluation and delivery of the placenta. With her assistance, we were able to develop a plane to deliver the placenta, noting that there was still a very densely adherent portion of the placenta in the midline anteriorly. Following delivery of the placenta, another 1000 mg TXA was administered intravenously, and 800 mcg misoprostol was administered per rectum by an RN. The uterus was cleared of all clots and debris and then it was exteriorized.. It was carefully inspected and there was an area that felt very irregular that was actively bleeding. A sharp curettage was performed using a banjo curette. Only blood and clots was removed with the curette, but then I was digitally able to remove what appeared to be a portion of retained placental fragments. This was placed in formalin for pathologic evaluation. Vigorous uterine massage was performed, and good tone was noted. The endometrium was inspected, and there seemed to be some active bleeding from a defect in the anterior midline where the adherent portion of the placenta had disrupted the myometrium with removal. This was oversewn with 0 chromic in a running locking fashion. There was another bleeding vessel noted that was suture ligated also with 0 Vicryl. Hemostasis was noted. The uterus was returned to the abdomen. The uterine incision was reapproximated in a running locking fashion with a 0 chromic suture. A 2nd layer of the same suture was used to imbricate in horizontal fashion. Clots were removed. Tubes and ovaries were inspected and noted to be normal appearance. All instruments and retractors were removed. The anterior peritoneum was reapproximated in a running fashion with a 3-0 Vicryl suture. The subfascial tissues were carefully inspected and hemostasis assured. The fascia was reapproximated in a running fashion with a looped 0 Maxon suture. The subcutaneous tissues were copiously irrigated. Hemostasis was assured. The subcutaneous fat layer was reapproximated with interrupted sutures of 3-0 plain gut. The skin was closed in a subcuticular fashion with 4-0 Vicryl. Surgical glue and dressing were applied. The patient was then placed in the dorsal lithotomy position. An open-sided bivalve speculum was introduced in the vagina and the cervix identified. The anterior and posterior lips of the cervix were grasped with ring forceps. There was a slow trickle of blood noted from the uterus. The decision was made to place a Bakri balloon. The Bakri balloon was prepared, and using a packing forceps, it was introduced into the uterus is far is it could be advanced. 200 mL of normal saline were used to fill the balloon, instruments were removed, and I digitally felt the cervix and the balloon had come down to the level of the dilated cervix and was slowly extruding. The fluid was removed from the balloon, and the procedure was repeated. The second time, it was more difficult to fill the balloon, as it required more pressure on the syringe, but 150 mL was instilled into the balloon, a digital exam was performed, and again the balloon had spontaneously began to extrude through the cervix. The Bakri was removed, the cervix and vagina reinspected, and there was no further continued bleeding. The patient tolerated the procedure well. Sponge, lap, needle, and instrument counts were reported as correct x2. The patient was taken to the recovery room, awake, and in stable condition. She did receive 500 mg IV azithromycin and 2 grams of IV Ancef preoperatively. Her preoperative hemoglobin was 10.4, immediate postoperative hemoglobin was 8.2. Complications: Densely adherent placenta requiring intraoperative sharp curettage. Pathology: specimen obtained, sent to pathology (1. Placenta, 2. Fragments of adherent placenta from curettage. ) Surgery Debrief Performed: Yes Condition: stable Disposition: floor
--- NOTE | 2024-11-05 05:25 | SUR.OPER ---
Incision time 02:54, baby girl born at 03:08. Dr. Benjamin noticed an adherent placenta ( possible placenta accreta), called was made for to come to the OR. Both were able to remove the placenta at 03:40. Specimens collected were A. Placenta and B. placental fragments. QBL was 2282, labs were drawn per provider request. After dressing was placed on the incision site, pt was placed into yellow fin stirrups so Dr. Benjamin could assess need for Bakri Balloon/ perform pelvic exam, Bakri placement was failed. Pt left OR at 05:23 with Chemo Yang CRNA and Wiley URIAS in stable condition on pt bed.
--- NOTE | 2024-11-05 05:43 | P.ANES_ITS ---
Anesthesia Charges Start Date/Time Anesthesia Start Date: 11/05/24 Anesthesia Start Time: 02:29 Stop Date/Time Anesthesia Stop Date: 11/05/24 Anesthesia Stop Time: 05:28 Summary Emergency: GEOSCIENCES PROFESSOR Coding CPT Codes CPT Codes: ANES/ANALG CS DELIVER ADD-ON - 67038 ([id number]) P3 - PATIENT W/SEVERE SYS DISEASE, QZ - GEOSCIENCES PROFESSOR SVC W/O PRODUCTION STATISTICAL CLERK BY Additional Codes: Summary - Emergency: GEOSCIENCES PROFESSOR ([id number])
--- NOTE | 2024-11-05 05:43 | W.ANESCHARGE ---
Anesthesia Charges Start Date/Time Anesthesia Start Date: 11/05/24 Anesthesia Start Time: 02:29 Stop Date/Time Anesthesia Stop Date: 11/05/24 Anesthesia Stop Time: 05:28 Summary Emergency: SUPERVISOR PLEATING Coding CPT Codes CPT Codes: ANES/ANALG CS DELIVER ADD-ON - 96686 ([id number]) P3 - PATIENT W/SEVERE SYS DISEASE, QZ - SUPERVISOR PLEATING SVC W/O FORKLIFT WHEEL LOADER BY Additional Codes: Summary - Emergency: SUPERVISOR PLEATING ([id number])
--- NOTE | 2024-11-05 05:44 | P.NB_ITS ---
Nerve Block Nerve Block Time Seen by Provider: 05:15 Date Seen: 11/05/24 Type of block requested by surgeon for post-operative analgesia: TAP Side: bilateral Time out performed: Yes Verification of patient name: Yes Verification of date of : Yes Site marking: not applicable Name of person performing procedure: [place] Continuous monitoring Was continuous monitoring of O2 sat, B/P, willow machine operator, recorded every 15 minutes?: Yes Procedure Checklist: sterile prep, needles and gloves Ultrasound guided. Images saved: Yes Medications given in 5ml increments after negative aspiration: Marcaine %: 0.25 mL: 30 Needle gauge: 20 and Exparel mL: 10 Patient tolerated procedure well: Yes Block Charges Block Charge (with Pro Fee): TAP Bilateral Use of Ultrasound Machine for Block: Yes- US Guidance/pain block
[2024-11-05 09:01] LABS: Hematocrit 21.1 % (33.0-51.0); Mean Corpuscular HGB Conc 34 gm/dL (32-36); Mean Corpuscular Hemoglobin 33 pg (26-34); Mean Corpuscular Volume 97 fL (80-100); Red Blood Count 2.17 m/uL (4.00-5.20); White Blood Count* 22.04 K/uL (4.50-11.00)
[2024-11-05] MEDS: MAGNESIUM Infusion 40 GM/1,000 ML IV.SOLN IVPB (09:10)
[2024-11-05] MEDS: DOCUSATE SODIUM 100 MG CAPSULE PO (09:10)
[2024-11-05] MEDS: SERTRALINE 100 MG TABLET PO (09:10)
[2024-11-05 09:20] LABS: Alanine Aminotransferase* 17 U/L (4-35); Aspartate Amino Transferase* 39 U/L (12-35); Creatinine* 0.6 mg/dL (0.5-1.5); Est. Creatinine Clearance* 110.86; Estimated Glomerular Filt Rate 118 ml/min; Hemoglobin* 7.1 gm/dL (12.0-16.0)
[2024-11-05 09:21] LABS: Slide Review Reflex No
[2024-11-05 09:37] LABS: Blood Urea Nitrogen* < 2 mg/dL (5-24)
--- NOTE | 2024-11-05 19:55 | PC.NURSE ---
This nurse was notified by Maria E of a lab value of Hemoglobin level of 7.1 after 9am. Maria E then responded with she would take care of it. No further lab orders were placed by the provider or verbal orders were given to this nurse throughout the day as i was in the chart. At the end of this nurse's shift, I follow up with the provider if any further orders were needed for the evening due to the hemoglobin level. The provider stated she was not made aware this morning of the hemoglobin levels, but is now aware and she would put in lab orders that are needed. This nurse reminded the provider that 2 units of blood are still ready and available for this patient if needed. Provider agreed.
[2024-11-05 20:12] LABS: Hematocrit 22.1 % (33.0-51.0); Immature Granulocytes Pct Auto 0.4 %; Lymphocytes Absolute Auto 2.10 K/uL (0.90-2.90); Mean Corpuscular HGB Conc 33 gm/dL (32-36); Mean Corpuscular Hemoglobin 32 pg (26-34); Mean Corpuscular Volume 97 fL (80-100); RDW Coefficient of Variation % 12.9 % (11.5-15.5); Red Blood Count 2.27 m/uL (4.00-5.20); White Blood Count* 22.50 K/uL (4.50-11.00)
[2024-11-05 20:16] LABS: Immature Granulocytes Abs Auto 0.10 K/uL (0.00-0.30)
[2024-11-05 20:17] LABS: Hemoglobin* 7.3 gm/dL (12.0-16.0); Slide Review Reflex No
[2024-11-05] MEDS: LANOLIN CREAM 1 APPLIC TOPICAL (20:43)
[2024-11-05] MEDS: LACTATED RINGERS 1000 ML 1,000 ML 75 ML IV (20:48)
[2024-11-05 20:59] LABS: Blood Urea Nitrogen* 4 mg/dL (5-24); Creatinine* 0.6 mg/dL (0.5-1.5); Est. Creatinine Clearance* 110.86; Estimated Glomerular Filt Rate 118 ml/min
[2024-11-05 21:00] LABS: Alanine Aminotransferase* 15 U/L (4-35); Aspartate Amino Transferase* 39 U/L (12-35)
--- NOTE | 2024-11-05 21:11 | PM.OBPNVD1 ---
OB - PN:Subj Subjective Date Seen: 11/05/24 Patient comments OB post-: pain well controlled, tolerating diet and flatus present infant status: Narrative: Feeling okay. OB - PN: Obj Exam Physical Exam: Vital signs: Temp Pulse Resp BP Pulse Ox O2 Del Method 99.5 F 92 14 134/79 97 Room Air 11/05/24 20:16 11/05/24 20:16 11/05/24 20:16 11/05/24 20:16 11/05/24 20:16 11/05/24 20:16 Narrative: GENERAL APPEARANCE:? normal affect, alert, no distress MOOD:? appropriate CHEST:? clear to auscultation HEART:? regular rate and rhythm ABDOMEN:? soft, non-tender the uterine fundus is At Umbilicus. EXTREMITIES:?SCDs in place. Incision: Covered, dry. OB - PN: Obj Data Labs Labs: Laboratory Results - last 24 hr 11/03/24 11/05/24 11/05/24 17:31 03:27 04:25 WBC 22.20 H RBC 2.48 L Hgb 8.2 L Hct 24.3 L MCV 98 MCH 33 MCHC 34 RDW Coeff of Rand Plt Count 188 Neut % (Auto) Lymph % (Auto) [place] % (Auto) Eos % (Auto) Baso % (Auto) Neut # (Auto) Lymph # (Auto) [place] # (Auto) Eos # (Auto) Baso # (Auto) Abs Immat Gran (auto) Imm/Tot Granulo (auto) INR 1.00 APTT 25 Fibrinogen 443 BUN 2 L Creatinine 0.7 Estimated Creat Clear 95.02 Estimated GFR 114 AST 39 H ALT 16 RPR Screen Non Reactive Blood Type A Negative Antibody Screen NEGATIVE Crossmatch (AHG) See Detail 11/05/24 11/05/24 08:54 20:05 WBC 22.04 H 22.50 H RBC 2.17 L 2.27 L Hgb 7.1 L* 7.3 L* Hct 21.1 L 22.1 L MCV 97 97 MCH 33 32 MCHC 34 33 RDW Coeff of Rand 12.9 Plt Count 157 204 Neut % (Auto) 84.5 H Lymph % (Auto) 9.3 L [place] % (Auto) 5.6 Eos % (Auto) 0.1 Baso % (Auto) 0.1 Neut # (Auto) 19.00 H Lymph # (Auto) 2.10 [place] # (Auto) 1.30 H Eos # (Auto) 0.00 Baso # (Auto) 0.00 Abs Immat Gran (auto) 0.10 Imm/Tot Granulo (auto) 0.4 INR APTT Fibrinogen BUN < 2 L Creatinine 0.6 Estimated Creat Clear 110.86 Estimated GFR 118 AST 39 H ALT 17 RPR Screen Blood Type Antibody Screen Crossmatch (AHG) OB - PN: A/P Delivery Assessment and Plan (1) Pre-eclampsia, severe, delivered: Status: Acute Assessment and Plan: Magnesium sulfate infusion ongoing. Plan to complete 24 hours at around 5am. No evidence of toxicity. PreE labs pending. BPs stable, will continue close monitoring. Urine output normal, diuresing, will continue close monitoring. We did discuss recommendation to complete at leat 24 hours of monitoring after d/c of Magnesium sulfate so earliest for possible discharge would be Sunday. 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 She has not been ambulation a lot, but discussed that usually post op and hemoglobin less than 8mg/dL I would recommend BT. Patient accepts blood transfusion and will give 1 unit tonight and reevaluate tomorrow need for additional. She did have 2 units crossmatched and available this am. (3) Anemia, : Status: Acute (4) AMA (advanced maternal age) primigravida 35+: Status: Acute (5) resulting from in-vitro fertilization: Problem details: hx of egg retrival Status: Acute Plan day: 0 Plan: routine care
[2024-11-06] VITALS (20 sets, daily range): BP systolic 110–141; BP diastolic 62–89; PULSE 68–100; RESP 12–18; TEMP 36.4–37.1; O2SAT 92–97
[2024-11-06 02:10] LABS: Hematocrit 23.8 % (33.0-51.0); Hemoglobin* 8.0 gm/dL (12.0-16.0); Immature Granulocytes Pct Auto 1.3 %; Lymphocytes Absolute Auto 3.10 K/uL (0.90-2.90); Mean Corpuscular HGB Conc 34 gm/dL (32-36); Mean Corpuscular Hemoglobin 31 pg (26-34); Mean Corpuscular Volume 93 fL (80-100); RDW Coefficient of Variation % 14.3 % (11.5-15.5); Red Blood Count 2.55 m/uL (4.00-5.20); White Blood Count* 21.52 K/uL (4.50-11.00)
[2024-11-06 02:24] LABS: Alanine Aminotransferase* 13 U/L (4-35); Aspartate Amino Transferase* 33 U/L (12-35); Blood Urea Nitrogen* 5 mg/dL (5-24); Creatinine* 0.6 mg/dL (0.5-1.5); Est. Creatinine Clearance* 110.86; Estimated Glomerular Filt Rate 118 ml/min
[2024-11-06 02:27] LABS: Immature Granulocytes Abs Auto 0.30 K/uL (0.00-0.30); Slide Review Reflex No
[2024-11-06 08:09] LABS: Hematocrit 24.0 % (33.0-51.0); Mean Corpuscular HGB Conc 33 gm/dL (32-36); Mean Corpuscular Hemoglobin 31 pg (26-34); Mean Corpuscular Volume 94 fL (80-100); Red Blood Count 2.55 m/uL (4.00-5.20); White Blood Count* 19.57 K/uL (4.50-11.00)
[2024-11-06 08:13] LABS: Hemoglobin* 7.9 gm/dL (12.0-16.0); Slide Review Reflex No
[2024-11-06] MEDS: DOCUSATE SODIUM 100 MG CAPSULE PO (08:30)
[2024-11-06] MEDS: SERTRALINE 100 MG TABLET PO (08:30)
[2024-11-06 08:31] LABS: Blood Urea Nitrogen* 3 mg/dL (5-24); Creatinine* 0.6 mg/dL (0.5-1.5); Est. Creatinine Clearance* 110.86; Estimated Glomerular Filt Rate 118 ml/min
[2024-11-06 08:32] LABS: Alanine Aminotransferase* 12 U/L (4-35); Aspartate Amino Transferase* 30 U/L (12-35)
--- NOTE | 2024-11-06 11:29 | PM.OBPNVD1 ---
OB - PN:Subj Subjective Time Seen by Provider: 07:30 Date Seen: 11/06/24 Narrative: Keiry is a 39yo seen on POD1. She is s/p pC/S in the setting of arrest of descent following IOL for preeclampsia with severe features. Delivery was complicated by a hemorrhage with adherent placenta, concern for placenta accreta spectrum. was otherwise complicated by AMA, IVF. Postoperative course has been notable for symptomatic anemia, where she received 1 unit of packed red blood cells last night when hemoglobin was 7.3 (from 7.1) with symptoms of dizziness. With regard to preeclampsia, patient was maintained on magnesium sulfate for 24 hours after delivery - ending around 0500 this morning. Serial labs overnight demonstrated interval improvement of her hemoglobin status post blood transfusion to 8.0, with repeat stable at 7.9. Platelets 195, creatinine 0.6, AST 30, ALT 12. She has been normotensive with very robust urine output. She denies headaches, vision changes or right upper quadrant pain. She notes she felt woozy and somewhat dizzy while on magnesium, now improved. Denies chest pain or dyspnea. Patient has been up to ambulate minimally. She did feel unwell when she was ambulating, attributes this to magnesium. She has not been upright again since her blood transfusion. Flood remains in Situ, no BM. She notes her postoperative pain is well controlled at rest, is significantly exacerbated by touch or movement. Analgesic regimen has included Tylenol and Toradol, is avoiding oxycodone as this previously made her have nausea/vomiting in the past. She notes appetite is appropriate, denies nausea or vomiting at this time. She describes lochia as small volume. Denies fever/chills. She is concerned about taking oral iron as this led to nausea/vomiting of , which was admittedly also complicated though by hyperemesis. She did require IV iron as oral could not be tolerated when . OB - PN: Obj Exam Physical Exam: Vital signs: Temp Pulse Resp BP Pulse Ox O2 Del Method O2 Flow Rate 98.3 F 91 16 138/89 97 Room Air 1 11/06/24 11:15 11/06/24 11:15 11/06/24 11:15 11/06/24 11:15 11/06/24 11:15 11/06/24 11:15 11/06/24 06:15 Narrative: Physical exam: General: No acute distress Psych: Alert and oriented x3, full affect Heart: Regular rate and rhythm, no murmur rub or gallop Lungs: Clear to auscultation bilaterally Abdomen: Soft, nondistended. Tender to palpation in the lower quadrants, consistent with postoperative state. No rebound or guarding. Fundus palpated firm at umbilicus. Surgical incision is covered, dressing is clean/dry with no peripheral erythema or ecchymosis appreciated. Extremities: SCDs in place. Trace pitting edema bilaterally. No calf erythema or tenderness. OB - PN: Obj Data Labs Labs: Laboratory Results - last 24 hr 11/03/24 11/05/24 11/05/24 17:31 03:27 20:05 WBC 22.50 H RBC 2.27 L Hgb 7.3 L* Hct 22.1 L MCV 97 MCH 32 MCHC 33 RDW Coeff of Rand 12.9 Plt Count 204 Neut % (Auto) 84.5 H Lymph % (Auto) 9.3 L [place] % (Auto) 5.6 Eos % (Auto) 0.1 Baso % (Auto) 0.1 Neut # (Auto) 19.00 H Lymph # (Auto) 2.10 [place] # (Auto) 1.30 H Eos # (Auto) 0.00 Baso # (Auto) 0.00 Abs Immat Gran (auto) 0.10 Imm/Tot Granulo (auto) 0.4 BUN 4 L Creatinine 0.6 Estimated Creat Clear 110.86 Estimated GFR 118 Magnesium 5.2 H* AST 39 H ALT 15 RPR Screen Non Reactive Blood Type A Negative Antibody Screen NEGATIVE Crossmatch (G) See Detail 11/06/24 11/06/24 02:04 07:58 WBC 21.52 H 19.57 H RBC 2.55 L 2.55 L Hgb 8.0 L 7.9 L* Hct 23.8 L 24.0 L MCV 93 94 MCH 31 31 MCHC 34 33 RDW Coeff of Rand 14.3 Plt Count 183 195 Neut % (Auto) 77.9 H Lymph % (Auto) 14.4 L [place] % (Auto) 5.9 Eos % (Auto) 0.4 Baso % (Auto) 0.1 Neut # (Auto) 16.80 H Lymph # (Auto) 3.10 H [place] # (Auto) 1.30 H Eos # (Auto) 0.10 Baso # (Auto) 0.00 Abs Immat Gran (auto) 0.30 Imm/Tot Granulo (auto) 1.3 BUN 5 3 L Creatinine 0.6 0.6 Estimated Creat Clear 110.86 110.86 Estimated GFR 118 118 Magnesium AST 33 30 ALT 13 12 RPR Screen Blood Type Antibody Screen Crossmatch (AHG) OB - PN: A/P Delivery Assessment and Plan (1) Pre-eclampsia, severe, delivered: Status: Acute (2) hemorrhage: Problem details: 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 was otherwise complicated by IVF gestation and AMA, ankylosing spondylitis, depression, anxiety, ADHD, hyperemesis, anemia. Her delivery was complicated by hemorrhage of 2.2 L, with suspected abnormal placentation (placenta accreta) that required manual removal of the placenta and curettage. hemorrhage was addressed with surgical repair and uterotonics. Postoperatively, Keiry has had symptomatic anemia. Her hemoglobin was noted to downtrend to 7.1, stable on recheck at 7.3. Still, patient was symptomatic with poor tolerance of ambulation intermittent tachycardia where she was administered 1 unit of packed red blood cells yesterday evening. She had appropriate rise in her hemoglobin to 8.0, stable at 7.9 this morning. Patient has not yet been up and out of bed, encouraged her to trial ambulation. If vital signs remain within normal limits and patient is asymptomatic, plan would be to just repeat labs again tomorrow morning. Certainly, would consider this sooner as clinically indicated. In addition, patient notes suboptimal tolerance of p.o. iron during due to nausea/vomiting. It is possible that some role of this was secondary to her hyperemesis during as well, but patient is concerned about potential vomiting if she were to trial p.o. iron. As such, we ultimately decided to proceed with IV iron transfusion but defer this until after hospitalization as this needs to occur at [facility]. Patient will need to follow up in clinic days of dismissal for BP check anyway, task sent to cigar making machine operator to start facilitating IV iron transfusion tentatively for 11/10 or 11/11 to coincide with MD BP check. With regard to preeclampsia severe features, patient did receive a total of 24 hours magnesium sulfate ending at 0500 this morning. Patient notes she is feeling better since discontinuation of magnesium. She denies any unrelenting headache, vision changes or right upper quadrant pain. She has been normotensive since delivery, on no antihypertensive medications. Serial preeclampsia labs overnight were normal. Robust diuresis ongoing, significant improvement of edema noted. Plan to continue diligent blood pressure monitoring - start antihypertensive regimen as clinically indicated. Finally, with regard to suspected placenta accreta we did debrief her delivery and potential implications of this diagnosis. Importantly, Keiry has had minimal bleeding. Explained we will have a definitive diagnosis pending her surgical pathology, which I anticipate will return early next week. She is concerned about the potential for recurrent accreta in a possibly far worse outcome, but emotionally is coping appropriately. No signs/symptoms of acute mood disorder. She may benefit from an M consultation for pre conception counseling prior to future pregnancies. Dispo: Likely discharge on POD3
[2024-11-06] MEDS: ACETAMINOPHEN 500 MG TABLET 1000 MG PO ×2 (14:04→20:27)
[2024-11-06] MEDS: IBUPROFEN 600 MG TABLET PO (17:10)
[2024-11-07] VITALS (7 sets, daily range): BP systolic 102–136; BP diastolic 66–84; PULSE 71–93; RESP 16–18; TEMP 36.6–36.9; O2SAT 95–99
[2024-11-07] MEDS: ACETAMINOPHEN 500 MG TABLET 1000 MG PO ×4 (02:47→20:42)
[2024-11-07] MEDS: IBUPROFEN 600 MG TABLET PO ×4 (05:50→23:57)
[2024-11-07 06:19] LABS: Hematocrit 26.4 % (33.0-51.0); Hemoglobin* 8.7 gm/dL (12.0-16.0); Immature Granulocytes Pct Auto 0.4 %; Mean Corpuscular HGB Conc 33 gm/dL (32-36); Mean Corpuscular Hemoglobin 31 pg (26-34); Mean Corpuscular Volume 95 fL (80-100); RDW Coefficient of Variation % 14.9 % (11.5-15.5); Red Blood Count 2.78 m/uL (4.00-5.20); White Blood Count* 17.20 K/uL (4.50-11.00)
[2024-11-07 06:25] LABS: Immature Granulocytes Abs Auto 0.10 K/uL (0.00-0.30); Lymphocytes Absolute Auto 3.60 K/uL (0.90-2.90); Slide Review Reflex No
--- NOTE | 2024-11-07 07:57 | PM.OBPNVD1 ---
OB - PN:Subj Subjective Time Seen by Provider: 12:00 Date Seen: 11/07/24 Narrative: Keiry is a 39yo seen on POD2. She is s/p pC/S in the setting of arrest of descent following IOL for preeclampsia with severe features. Delivery was complicated by a hemorrhage with adherent placenta, concern for placenta accreta spectrum. was otherwise complicated by AMA, IVF. Postoperative course has been notable for symptomatic anemia, where she received 1 unit of packed red blood cells last night when hemoglobin was 7.3 (from 7.1) with symptoms of dizziness. With regard to preeclampsia, patient was maintained on magnesium sulfate for 24 hours after delivery - ending on 9/4 AM. Currently on Nifedipine XL 30 mg QD for BP control. BP overnight were wnl. Denies any persistent headache, vision changes, SOB, right upper quadrant/epigastric pain, or rapidly expanding edema. Overnight patient had no complaints. Her pain is well controlled on oral pain medications. She is tolerating a regular diet. She has passed flatus and had a BM yesterday. She is ambulating without difficulty. Lochia is scant. She is urinating without lindo. Patient denies chest pain, SOB, n/v, headache, RUQ pain, vision changes, dizziness. Continued fatige OB - PN: Obj Exam Physical Exam: Vital signs: Temp Pulse Resp BP Pulse Ox O2 Del Method O2 Flow Rate 98.1 F 79 16 116/81 98 Room Air 1 11/07/24 05:43 11/07/24 05:43 11/07/24 05:43 11/07/24 05:43 11/07/24 05:43 11/07/24 05:43 11/06/24 06:15 Narrative: Physical exam: General: No acute distress Psych: Alert and oriented x4, full affect HEENT: Normocephalic, atraumatic Heart: Regular rate and rhythm, no murmur rub or gallop Lungs: Clear to auscultation bilaterally Abdomen: Normoactive bowel sounds, soft, no tenderness, rebound, or guarding Incision(s): Appropriately tender to palpation. Clean, dry, and intact. No erythema, induration, or abnormal discharge/breakdown Skin: No lesions or rashes Lower extremities: No edema or erythema Pelvic exam: Scant lochia on pad OB - PN: Obj Data Labs Labs: Laboratory Results - last 24 hr 11/06/24 11/07/24 07:58 05:57 WBC 19.57 H 17.20 H RBC 2.55 L 2.78 L Hgb 7.9 L* 8.7 L Hct 24.0 L 26.4 L MCV 94 95 MCH 31 31 MCHC 33 33 RDW Coeff of Rand 14.9 Plt Count 195 257 Neut % (Auto) 70.8 Lymph % (Auto) 20.7 [place] % (Auto) 5.4 Eos % (Auto) 2.3 Baso % (Auto) 0.4 Neut # (Auto) 12.20 H Lymph # (Auto) 3.60 H [place] # (Auto) 0.90 Eos # (Auto) 0.40 Baso # (Auto) 0.10 Abs Immat Gran (auto) 0.10 Imm/Tot Granulo (auto) 0.4 BUN 3 L Creatinine 0.6 Estimated Creat Clear 110.86 Estimated GFR 118 AST 30 ALT 12 OB - PN: A/P Delivery Assessment and Plan (1) Pre-eclampsia, severe, delivered: Status: Acute Assessment and Plan: - s/p 24 hours of magnesium sulfate - Pre E wnl as of yesterday - Will continue Nifedipine XL 30 mg QD - BP monitoring ongoing (2) hemorrhage: Problem details: 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 Although she realized its too soon make any final decision regarding future fertility. (3) Anemia, : Status: Acute Assessment and Plan: - From acute blood loss - status post 1 unit of PRBC. - Hgb trend: 10.4 --> 8.2 --> 7.1 --> 7.3 --> 1u of pRBC --> 8.0 --> 7.9 --> 8.7 this AM on 11/07 - VSS. UOP adequate - Physical exam benign - Plan for IV iron outpatient as well. Task sent to build and deployment engineer to start facilitating IV iron transfusion tentatively for 11/10 or 11/11 to coincide with MD BP check. (4) care and examination of lactating mother: Status: Acute Assessment and Plan: Postoperative/post delivery Review: - Admitted for: IOL for preeclampsia with severe features - Surgical procedure: Primary section - Skin incision: Pfannenstiel - Closure: Suture - Estimated blood loss: 2282 mL - Intraoperative Complications: Intraoperative hemorrhage, concern for placenta accreta - Urine output: Adequate Postoperative care: - Diet: Advance as tolerated - Fluid: Encourage oral intake - Activity: Encourage ambulation and incentive spirometry - Pain: Acetaminophen, Ibuprofen, and oxycodone - DVT prophylaxis: SCDs and TEDs when not ambulating. Dispo: Patient is POD#2. Need the following milestones: Extended monitoring due to preeclampsia with severe features and intraoperative hemorrhage requiring blood transfusion. Anticipate discharge POD# 3. (5) delivery delivered: Status: Acute
[2024-11-07] MEDS: SERTRALINE 100 MG TABLET PO (09:09)
[2024-11-07] MEDS: FERROUS SULFATE 325 MG TABLET PO (09:09)
[2024-11-07] MEDS: DOCUSATE SODIUM 100 MG CAPSULE PO (09:09)
[2024-11-08 03:13] VITALS: BP 143/89; PULSE 71; RESP 16; TEMP 37.2; O2SAT 98
[2024-11-08] MEDS: ACETAMINOPHEN 500 MG TABLET 1000 MG PO ×2 (03:15→09:18)
[2024-11-08 03:22] VITALS: BP 143/88
[2024-11-08] MEDS: IBUPROFEN 600 MG TABLET PO (06:21)
[2024-11-08 08:45] VITALS: BP 121/78; PULSE 84; RESP 16; TEMP 37.1; O2SAT 98
[2024-11-08] MEDS: SERTRALINE 100 MG TABLET PO (09:18)
--- NOTE | 2024-11-08 09:40 | P.DS_ITS ---
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 Going to therapy. Sertraline. Hx Effexor. See scanned [facility] notes. (6) Ankylosing spondylitis: Status: Chronic Problem details: Humira q 2 weeks- started 02/2013. Follows with [facility]. Exam Narrative: Exam Narrative: GENERAL APPEARANCE:? normal affect, alert, no distress MOOD:? appropriate CHEST:? clear to auscultation bilaterally. HEART:? regular rate and rhythm w/o significant murmurs. ABDOMEN:? soft, appropriately tender the uterine fundus is at Umbilicus, Midline and is appropriate for the stage of recovery. EXTREMITIES:? normal and trace edema Incision: Healing well, no surrounding erythema, abnormal induration or discharge. Const: Vital Signs, click to edit/add: Vital Signs - 24 hr 11/07/24 12:02 11/07/24 16:45 11/07/24 20:17 Temperature 98.4 F 98.2 F 98.2 F Pulse Rate [Left P ulse Oximeter] 93 80 76 Respiratory Rate 16 16 18 Blood Pressure [Le ft Arm] 134/84 134/82 136/81 Pulse Oximetry 96 97 97 Oxygen Delivery Me thod Room Air Room Air Room Air Oxygen Flow Rate 1 11/07/24 23:55 11/08/24 03:13 11/08/24 03:22 Temperature 98.1 F 98.9 F Pulse Rate [Left P ulse Oximeter] 71 71 Respiratory Rate 18 16 Blood Pressure [Le ft Arm] 124/72 143/89 H 143/88 H Pulse Oximetry 99 98 Oxygen Delivery Me thod Room Air Room Air Oxygen Flow Rate OB - DS: Summary Hospital Course Hospital Course: The patient is a 39 year old G 3 P 1021 at 39 2/7 weeks gestation that was admitted to the [facility] on 11/03/24 for induction of labor due to IVF . Diagnosed with severe gestational hypertension/preeclampsia intrapartum. She had an complicated delivery due to arrest of descent. Intraoperative findings consistent for focal accreta and surgery complicated by PPH. She delivered a viable female infant. She is breast feeding. Completed 24 hours of magnesium sulfate infusion . Currently has been started on oral Nifedipine ER 30mg BID for management of mild elevation of BPs. Lab work has remained normal showing normal kidney and liver function, normal platelets. Hemoglobin did drop less than 8mg/dL after and she did receive 1 unit of PRBC on POD 0. Currently she is ambulating w/o SOB, lightheadedness, heart palpitations. Plan to complete outpatient IV infusion as she does not tolerate oral iron very well. Patient meeting all postoperative milestones and stable for discharge home today. Peripartum Data delivery method: Primary C/S; Labored Procedures: Procedures Operation Date: 11/05/24 02:30 Actual Procedure Side Surgeon p Primary Low Transverse section due to arrest of descent Not Applicable Fe Benjamin MD complications: transfusion and retained placenta [place] Gender: Female Infant Discharge Plan: Home Status at Discharge Functional status at discharge: independent ambulation Overall status at discharge: patient is progressing back to baseline Time Spent with Patient Time attestation: Total time spent providing and/or coordinating discharge services: Time spent: Less than 30 minutes Discharge Plan Discharge Disposition: Home, Self-Care Date of Admission: 11/03/24 16:35 Attending Provider on Discharge: Sarah Javed Consulting Providers: Fe Benjamin Primary Care Provider: Anita Collins Condition: Stable Anticipated Discharge Date/Time: 11/08/24 12:00 Discharge Medications: New acetaminophen 500 mg Tablet 1,000 mg PO Q6H PRN (Reason: Pain) Qty: 30 0RF docusate sodium 100 mg Capsule 100 mg PO DAILY Qty: 30 0RF nifedipine 30 mg Tablet Extended Release 30 mg PO BID Qty: 30 0RF ibuprofen 600 mg Tablet 600 mg PO Q6H PRN (Reason: Pain) Qty: 30 0RF oxycodone 5 mg Tablet 2.5 - 5 mg PO Q4H PRN (Reason: Pain) Qty: 10 0RF Continued adalimumab 40 mg/0.4 mL syringe kit 40 mg subcut Q14D cholecalciferol (vitamin D3) 50 mcg (2,000 unit) capsule 2,000 unit PO QDAY vitamin 1 pill PO DAILY metoclopramide HCl [Reglan] 10 mg tablet 10 mg PO Q6H PRN (Reason: nausea and vomiting) Qty: 60 2RF famotidine 20 mg tablet 20 mg PO QDAY loratadine [Allergy Relief (loratadine)] 10 mg tablet 10 mg PO QDAY calcium carbonate [Tums] 200 mg calcium (500 mg) tablet,chewable 200 mg PO BID sertraline 100 mg tablet 100 mg PO DAILY Qty: 90 0RF Rx Instructions: 1 once daily Discontinued aspirin [Adult Aspirin Regimen] 81 mg tablet,delayed release (DR/EC) 81 mg PO QDAY ferrous sulfate 300 mg (60 mg iron)/5 mL liquid 60 mg PO Q OTHER DAY Qty: 120 0RF acetaminophen [Tylenol Extra Strength] 500 mg tablet 1,000 mg PO Q6H PRN Discharge Orders: Discharge Order (Routine); Ordered 11/08/24 Ordered By: Sarah Javed Patient Education: OB /Breast Feeding Additional Instructions: Measure blood pressures at home twice a day. Notify clinic if there are blood pressures persistently more than 150 systolics, 100s diastolics or if any symptoms such as headaches that do not go away with pain medication, visual changes such as dark spots in vision, pain in the upper abdomen-that moves towards the upper right side. Notify clinic if there are blood pressures persistently less than 90 seconds systolics, 50s diastolics or if there is any associated symptoms such as lightheadedness, dizziness, shortness of breath, heart palpitations. Follow-up in clinic in 3-5 days after discharge for blood pressure check, review of antihypertensive medication regimen. Follow-up in clinic in 2 weeks for incision check and follow-up. Follow-up in 6 weeks in clinic for regular visit. Activity Level: No Weight Bearing Discharge Diet: Regular Follow Up Appointments: Anita Collins PA-C [Primary Care Provider, Family Practice] Forms: Patient Belongings, [facility] Info Instructions
== END 2024-11-08 12:20 | disposition home or self-care (01) | DRG 540 ==
PROVIDERS: Obstetrics & Gynecology; Admitting Provider Obstetrics & Gynecology; PCP Physician Assistant Medical; Visit Provider Obstetrics & Gynecology
PROC: 10D00Z1 Extraction of Products of Conception, Low, Open Approach (ICD-10-PCS; CPT 59514; principal; 2024-11-05 02:30)
DX: O14.14 Severe pre-eclampsia complicating childbirth (principal); O72.0 Third-stage hemorrhage; O32.4XX0 Maternal care for high head at term, not applicable or unspecified; O32.8XX0 Maternal care for other malpresentation of fetus, not applicable or unspecified; G89.18 Other acute postprocedural pain; O43.213 Placenta accreta, third trimester; O90.81 Anemia of the puerperium; D62 Acute posthemorrhagic anemia; M45.9 Ankylosing spondylitis of unspecified sites in spine; O26.893 Other specified pregnancy related conditions, third trimester; Z67.11 Type A blood, Rh negative; O99.344 Other mental disorders complicating childbirth; F98.8 Other specified behavioral and emotional disorders with onset usually occurring in childhood and adolescence; F41.8 Other specified anxiety disorders; Z3A.39 39 weeks gestation of pregnancy; Z37.0 Single live birth
CPT/HCPCS: 01967; 01968; 36415; 36430; 59200; 64488; 76942; 82565; 82570; 83735; 84156; 84450; 84460; 84520; 85018; 85025; 85027; 85384; 85610; 85730; 86592; 86850; 86900; 86901; 86922; 88305; 88307; 99140; A4314; A9270; C1726; J0456; J0665; J0666; J0690; J1100; J1885; J2270; J2274; J2371; J2405; J2590; J2765; J2795; J3010; J3475; J7050; J7120; P9016

== ENCOUNTER 2024-12-23 13:57 | Outpatient (CLI) | payer BC, SELFPAY ==
[2024-12-26 10:16] LABS: HPV Source Cervix
[2024-12-29 08:43] LABS: Pap Test Digital Imaging Done
== END 2024-12-23 13:58 | disposition home or self-care (01) ==
PROVIDERS: PCP Physician Assistant Medical; Visit Provider Physician Assistant
DX: Z12.4 Encounter for screening for malignant neoplasm of cervix (principal)
CPT/HCPCS: 87624; 87625; 88141; 88142; 88175